=== PATIENT | male | born 1975 | race Caucasian/White ===

== ENCOUNTER 2018-01-08 23:18 | Inpatient (IN) | payer BC ==
[2018-01-08] MEDS ORDERED: NS 1,000 ML IV ONE (23:50)
--- NOTE | 2018-01-08 23:50 | EDPHY ---
H & P Stated Complaint: LIVER PAIN, X 2 DAYS/ABNORMAL LIVER PANEL Time Seen by Provider: 01/08/18 23:50 HPI/ROS: HPI CHIEF COMPLAINT: Abdominal pain, abnormal liver enzymes HISTORY OF PRESENT ILLNESS: This patient is a 42-year-old male, presents emergency room stating that he developed some right sided abdominal pain. States been hurting him since over the weekend on Saturday. Additionally reports that he went to his doctor's and they did liver enzymes and there very high is referred to the emergency room. Patient states that he had a liver injury when he took a Spanish herb back in September and was hospitalized in [place] for this. Patient does state that he drinks alcohol usually a bottle and a half wine per night. He has been recently binge drinking alcohol because he has been out of his anxiety medicine. He now presents emergency room complaining of right upper quadrant pain. Past Medical History: IBS, anxiety, alcoholism Past Surgical History: Patient states he has a stent in his abdomen around his pancreas additionally gallbladder is been removed. Social History: Daily alcohol use. No drugs. Family History: Noncontributory ROS REVIEW OF SYSTEMS: A comprehensive 10 point review of systems is otherwise negative aside from elements mentioned in the history of present illness. Exam Constitutional nontoxic appearing, triage nursing summary reviewed, vital signs reviewed, awake/alert. Eyes normal conjunctivae and sclera, EOMI, PERRLA. No jaundice or icteric eyes HENT normal inspection, atraumatic, moist mucus membranes, no epistaxis, neck supple/ no meningismus, no raccoon eyes. Respiratory clear to auscultation bilaterally, normal breath sounds, no respiratory distress, no wheezing. Cardiovascular rate normal, regular rhythm, no murmur, no edema, distal pulses normal. Gastrointestinal distended abdomen but not tender, no guarding or peritoneal signs, hepatomegaly on exam,, no rebound, no guarding, normal bowel sounds, no distension, no pulsatile mass. Genitourinary no CVA tenderness. Musculoskeletal no midline vertebral tenderness, full range of motion, no calf swelling, no tenderness of extremities, no meningismus, good pulses, neurovascularly intact. Skin ecchymosis bilateral arms Neurologic awake, alert and oriented x 3, AAOx3, moves all 4 extremities equally, motor intact, sensory intact, CN II-XII intact, normal cerebellar, normal vision, normal speech. Psychiatric normal mood/affect. Heme/Lymph/Immune no lymphadenopathy. Differential diagnosis includes but is not limited to and in no particular order : Liver disease from alcohol, acute liver injury, hepatitis Bowel obstruction , appendicitis, gallbladder disease, diverticulitis, colitis, enteritis, perforated viscus, gastritis, GERD, esophagitis, urinary tract infection, pyelonephritis, kidney stones Medical Decision Making: Plan for this patient IV establishment blood draw, check LFTs, check alcohol level, CT scan abdomen pelvis with IV contrast gentle IV fluids. Re-evaluation: 0130AM: CT ABD PELVIS with IV contrast this shows a pancreatic mass appears to be hemorrhagic 3.8 x 3.7 cm. There is some stranding around his pancreas. Enlarged liver on CT. Please see full details of the dictation for the Radiology port called to me by Dr. Matheus Smith. Updated the hospitalist service about this patient. Agrees To Admit. Source: Patient - Personal History Current Tetanus Diphtheria and Acellular Pertussis (TDAP): Yes - Medical/Surgical History Hx Asthma: No Hx Chronic Respiratory Disease: No Hx Diabetes: Yes Hx Cardiac Disease: No Hx Renal Disease: No Hx Cirrhosis: No Hx Alcoholism: Yes Hx HIV/AIDS: No Hx Splenectomy or Spleen Trauma: No Other PMH: DM, MYRON, PANCREATITIS, STENT FROM ENDOSCOPY, MULTIPLE BONE FX - Social History Smoking Status: Current some day smoker Constitutional: Initial Vital Signs Temperature (C) 36.6 C 01/08/18 23:28 Heart Rate 111 H 01/08/18 23:28 Respiratory Rate 16 01/08/18 23:28 Blood Pressure 130/96 H 01/08/18 23:28 O2 Sat (%) 93 01/08/18 23:28 O2 Delivery Mode Room Air Allergies/Adverse Reactions: Calcium Channel Blocking Agents-Dih Allergy (Verified 01/09/18 08:23) swelling tongue Home Medications: Medication Instructions Recorded DULoxetine [Cymbalta 60 MG (*)] 60 mg PO DAILY 01/08/18 Empagliflozin [Jardiance] 10 mg PO DAILY 01/08/18 Gabapentin [Neurontin 300 MG (*)] 900 mg PO TID 01/08/18 LORazepam [Ativan (*)] 0.25 mg PO TID 01/08/18 Phenobarb/Hyoscy/Atropine/Scop 16.2 mg PO Q6HRS 01/08/18 [Belladonna-Phenobarbital Tab] Sucralfate [Carafate 1 GM (*)] 1 gm PO ACHS 01/08/18 Trifluoperazine HCl [Stelazine 1MG 1 mg PO BID 01/08/18 (*)] metFORMIN HCL [Glucophage 1000 mg] 1,000 mg PO BIDMEAL 01/08/18 Famotidine [Pepcid 20 MG (*)] 40 mg PO DAILY PRN 01/09/18 Fluticasone Nasal [Flonase Nasal 1 sprays NASAL DAILY PRN 01/09/18 [place] (RX)] Pseudoephedrine HCl [Sudafed] 30 mg PO DAILY PRN 01/09/18 Medical Decision Making - Data Points Laboratory Results: Laboratory Results 01/08/18 00:05 01/08/18 00:05 Medications Given: Folic Acid (Folic Acid) 1 mg PO DAILY [facility] Stop: 07/09/18 08:59 Last Admin: 01/10/18 08:52 Dose: 1 mg Potassium Chloride/Sodium Chloride (Ns W/ 20 Kcl/L) 1,000 mls @ 75 mls/hr IV CONT [facility] Stop: 07/09/18 13:14 Last Admin: 01/10/18 13:56 Dose: 1,000 mls Insulin Human Lispro (Humalog Lispro) 0 unit SC ACHS [facility] PRN Reason: Protocol Stop: 07/08/18 07:29 Last Admin: 01/10/18 21:45 Dose: 4 units Iron/Minerals/Multivitamins (Cerovite Liquid) 15 ml PO DAILY [facility] Stop: 07/09/18 08:59 Last Admin: 01/10/18 08:55 Dose: 15 ml Lactulose (Cephulac) 20 gm PO BID [facility] Stop: 07/09/18 14:14 Last Admin: 01/10/18 21:02 Dose: 20 gm Lorazepam (Ativan Injection) 1 mg IVP Q4HRS PRN PRN Reason: Anxiety, Unable to Take PO Stop: 07/08/18 01:34 Last Admin: 01/09/18 17:49 Dose: 0.5 mg Lorazepam (Ativan) 0.5 mg PO BID [facility] Stop: 07/08/18 08:59 Last Admin: 01/10/18 21:02 Dose: 0.5 mg Lorazepam (Ativan Injection) 0 mg IVP Q1H PRN; Protocol PRN Reason: Alcohol Withdrawal w/IV access Stop: 07/09/18 05:15 Last Admin: 01/11/18 00:10 Dose: 2 mg Miscellaneous Medication (Phenobarb/Hyoscy/Atropine/Scop [Belladonna- Phenobarbital Tab]) 16.2 mg PO Q6HRS [facility] Stop: 07/08/18 17:59 Last Admin: 01/11/18 00:10 Dose: 16.2 mg Morphine Sulfate (Morphine) 1 - 2 mg IVP Q2HRS PRN PRN Reason: Pain, Severe Unable to Take PO Stop: 01/19/18 01:30 Last Admin: 01/10/18 23:31 Dose: 2 mg Ondansetron HCl (Zofran) 4 mg IVP Q4HRS PRN PRN Reason: Nausea/Vomiting, Can't Take PO Stop: 07/08/18 01:30 Last Admin: 01/10/18 15:05 Dose: 4 mg Prednisone (Prednisone) 30 mg PO DAILY [facility] Stop: 07/09/18 14:29 Last Admin: 01/10/18 15:06 Dose: 30 mg Promethazine HCl (Phenergan) 6.25 - 12.5 mg IVP Q6HRS PRN PRN Reason: Nausea/Vomiting, Can't Take PO Stop: 07/08/18 04:25 Last Admin: 01/09/18 17:51 Dose: 6.25 mg Sucralfate (Carafate Suspension) 1 gm PO ACHS [facility] Stop: 07/08/18 07:29 Last Admin: 01/10/18 21:02 Dose: 1 gm Thiamine HCl (Vitamin B-1) 100 mg PO DAILY [facility] Stop: 07/09/18 08:59 Last Admin: 01/10/18 08:52 Dose: 100 mg Discontinued Medications Duloxetine HCl (Cymbalta) 60 mg PO DAILY [facility] Stop: 07/09/18 08:59 Last Admin: 01/10/18 08:52 Dose: 60 mg Famotidine (Pepcid) 40 mg PO DAILY [facility] Stop: 07/08/18 08:59 Last Admin: 01/10/18 08:53 Dose: 40 mg Gabapentin (Neurontin) 900 mg PO TID [facility] Stop: 07/08/18 15:59 Last Admin: 01/10/18 07:56 Dose: 900 mg Sodium Chloride (Ns) 1,000 mls @ 0 mls/hr IV EDNOW ONE; Wide Open PRN Reason: Protocol Stop: 01/08/18 23:51 Last Admin: 01/09/18 00:07 Dose: 1,000 mls Sodium Chloride (Ns) 1,000 mls @ 100 mls/hr IV CONT [facility] Stop: 07/08/18 01:44 Last Admin: 01/09/18 09:28 Dose: 1,000 mls Dextrose/Sodium Chloride (D5w Ns) 1,000 mls @ 150 mls/hr IV CONT [facility] Stop: 07/08/18 15:14 Last Admin: 01/09/18 23:35 Dose: 1,000 mls Magnesium Sulfate (Magnesium Sulf 2 Gm (Premix)) 50 mls @ 50 mls/hr IV ONCE ONE Stop: 01/09/18 16:05 Last Admin: 01/09/18 15:34 Dose: 50 mls Magnesium Sulfate/Dextrose (Magnesium Sulf 1 Gm (Premix)) 100 mls @ 100 mls/hr IV ONCE ONE Stop: 01/10/18 09:11 Last Admin: 01/10/18 08:52 Dose: 100 mls Metoprolol Tartrate (Lopressor) 12.5 mg PO BID [facility] Stop: 07/09/18 08:59 Last Admin: 01/10/18 08:53 Dose: 12.5 mg Pantoprazole Sodium (Protonix) 40 mg IVP DAILY [facility] Stop: 07/08/18 15:29 Last Admin: 01/09/18 17:57 Dose: 40 mg Trifluoperazine HCl (Stelazine) 1 mg PO BID [facility] Stop: 07/08/18 08:59 Last Admin: 01/10/18 10:39 Dose: 1 mg Departure - Departure Disposition: [facility] Acute Clinical Impression: Elevated liver enzymes Alcohol intoxication Qualifiers: Complication of substance-induced condition: uncomplicated Qualified Code(s): F10.920 - Alcohol use, unspecified with intoxication, uncomplicated Condition: Fair
[2018-01-09 00:26] LABS: PLATELET COUNT 178 10^3/uL (150-400)
[2018-01-09 00:30] LABS: INR 0.87 (0.83-1.16)
[2018-01-09] MEDS ORDERED: IOPAMIDOL (ISOVUE-300) 100 ML BTL ONE (00:48)
[2018-01-09] MEDS: NS 1,000 ML IV SCH ×2 (02:13→09:28)
[2018-01-09] MEDS: LORazepam 2 MG/ML INJ IVP PRN ×3 (02:55→17:49)
[2018-01-09] MEDS ORDERED: OPIUM/BELLADONNA ALKALO SUPP PR PRN (03:59)
[2018-01-09] MEDS ORDERED: PROMETHAZINE HCL 25 MG/ML INJ IVP PRN (04:26)
[2018-01-09] MEDS ORDERED: D50W 25 GM/50 ML SYR IVP PRN (04:26)
--- NOTE | 2018-01-09 05:16 | GHP ---
[f rep st] HISTORY AND PHYSICAL DATE OF ADMISSION: 01/09/2018 SOURCE: Patient provides history, appears reliable historian. EMR was reviewed and case discussed with ED provider. PCP: None listed. CHIEF COMPLAINT: Right upper quadrant abdominal pain. HISTORY OF PRESENT ILLNESS: This is a pleasant 42-year-old gentleman with past medical history significant for bipolar depression, anxiety, alcohol dependence , recent history and hospitalization for acute hepatitis per report secondary to [place] herb. Irritable bowel syndrome, diabetes, who presents to the emergency department today with complaints of 4-day history of ongoing right upper quadrant epigastric abdominal pain and abdominal distention. Patient also reports he was seen by PCP, who advised him to go to the emergency department for abnormal LFTs. Patient's pain he states started in the right upper quadrant and has since been radiating to his right back. He reports the pain to be sharp and pressure-type sensation. Constant. Nothing seems to make it better or worse. The patient denies any associated worsening of pain with any oral intake. The patient additionally reports that he ran out of his Ativan for several days and has since been binge drinking on mostly wine products. The patient reports that he goes into benzo withdrawals fairly rapidly, even though he is on 0.5 mg p.o. b.i.d. The patient denies any history of nausea and vomiting. The patient reports he developed some nausea following administration of morphine here in the Emergency Department for his abdominal pain. He reports occasional diarrhea without any melena or hematochezia. REVIEW OF SYSTEMS: GENERAL: Patient denies any fevers or chills. SKIN: No rashes or sores. ENT: Patient reports some rhinorrhea since coming to [place]. No sore throat. EYES: Patient denies any acute changes in vision, ocular pain. CV: The patient denies any chest pain or palpitations. RESPIRATORY: No shortness of breath or cough. GI: Patient without any nausea prior to arrival in the emergency department and abdominal pain as noted per HPI. : No dysuria or hematuria. MUSCULOSKELETAL: Patient denies any joint pain or myalgias. NEURO: Patient denies any headache, numbness, tingling, or focal deficits. PSYCH: Patient with history of anxiety and bipolar depression. He denies any SI or HI. Remainder ROS negative except as noted above. ALLERGIES: Calcium channel blockers, patient develops tongue swelling. HOME MEDICATIONS: Duloxetine 60 mg p.o. q. daily, trifluoperazine 1 mg p.o. b.i.d., sucralfate 1 g p.o. 4 times a day, famotidine 40 mg p.o. daily, belladonna phenobarbital 1 mg q.6 scheduled, Jardiance 10 mg p.o. q. daily, 900 mg gabapentin t.i.d., metformin 2000 mg p.o. twice daily cc, lorazepam 0.5 mg p.o. b.i.d. p.r.n., which patient reports he normally takes scheduled, Ativan. PAST MEDICAL HISTORY: Significant for bipolar disorder, anxiety, alcohol dependence, history of acute hepatitis with hospitalization last several weeks, irritable bowel syndrome, history of pseudocyst, status post stent for drainage , diabetes type 2. PAST SURGICAL HISTORY: Cholecystectomy, ERCP with pancreatic stent placement. FAMILY HISTORY: Significant for irritable bowel syndrome. Father with kidney cancer. SOCIAL HISTORY: Patient drinks approximately 1.5 bottles of wine or more per day. He denies any illicit drug use. He denies any tobacco product use. COR STATUS: DNR, DNI. PHYSICAL EXAM: VITAL SIGNS: Blood pressure 130/96, heart rate 111, respiratory rate 16, O2 saturation 93% on room air, temperature 36.6. CURRENT VITALS AVAILABLE: Blood pressure 147/96, heart rate 88, respiratory rate 16, O2 saturation 92% on room air. GENERAL: No acute distress. Patient is lying quietly in bed, awake. HEAD: Normocephalic, atraumatic. EYES: Extraocular muscles are grossly intact. Pupils equal, round, with decreased reactivity to light bilaterally, but symmetric. No scleral icterus or conjunctival injection. Patient does have a little bit of right lower conjunctival hemorrhage. ENT: Mucous membranes appear slightly dry. No oropharyngeal erythema or exudates. Dentition in fair condition. No nasal discharge. NECK: Supple. Trachea midline. CV: Regular rate and rhythm. No murmurs, rubs, or gallops appreciated. RESPIRATORY: Unlabored breathing. Lungs are clear to auscultation bilaterally. Patient with poor inspiratory effort secondary to abdominal pain. ABDOMEN: Slightly distended. Patient with tenderness to palpation right upper quadrant and epigastric region. No rebound or guarding, but patient does withdraw from exam during evaluation of the right upper quadrant. Patient with positive bowel sounds, otherwise soft. : No suprapubic tenderness to palpation. No catheter in place. EXTREMITIES: No cyanosis, clubbing, or edema. 2+ pedal pulses present bilaterally and symmetric. NEURO: Grossly nonfocal no facial drooping. Moves all extremities. Sits up independently. Strength grossly intact. PSYCH: Patient is slightly anxious, but he is otherwise cooperative, pleasant. Affect slightly flat. LABORATORY STUDIES: WBC is 8.77, H and H is 14.1, 40.7, MCV 91.3, platelet count is 178. No bands. PT is 12.0, INR 0.87, PTT is 28.6. Lactic acid 3.8. Sodium is 134, potassium 4.3, chloride is 93, CO2 is 20, anion gap of 21, BUN 13 , creatinine 0.8, GFR greater than 60, glucose 129, calcium is 9.5, total bili is 1.8, ALT is 1040, AST is 1870, alkaline phosphatase is 767, total protein 7.7 , albumin 4.5, lipase is 217. UA specific gravity 1.030 with a pH of 5.0, 1+ protein, trace ketones, 1+ blood, 4.0 urobilinogen, RBCs 5-10, WBC is 3 to 5, 3 + glucose, otherwise negative. Alcohol level 127. Hepatitis panel is pending. CT abdomen and pelvis: Preliminary radiology report is available. A 4 cm mass pancreatic head with biliary and pancreatic ductal dilation, 11 mm higher attenuation inferiorly, possible hemorrhagic pancreatitis, pseudocyst or malignancy, sequelae of prior pancreatitis. ASSESSMENT AND PLAN: A 42-year-old gentleman with a history of alcohol dependence and recent hospital stay for acute hepatitis, who presents to the emergency department with several-day history of right upper quadrant abdominal pain. 1. Acute hepatitis, likely related to patient's recent binge drinking. The patient reports that his previous hospital stay was related to an herbal supplement. However, he does note he was drinking at that time as well. Hepatitis panel is pending. We will monitor LFTs. 2. Acute hemorrhagic pancreatitis on chronic pancreatitis. Patient does have a history of pseudocyst in addition, which imaging does show. The patient will be n.p.o. except for medications. After discussion with the patient, he is quite concerned regarding his regularly scheduled antipsychotics and pain medications to control his irritable bowel syndrome symptoms. We will monitor his lipase, amylase, and otherwise make patient n.p.o. Gastroenterology consultation in the morning as per day hospitalist as noted above. 3. Pancreatic mass. The patient has a known history of a pseudocyst, which he reports was previously drained with use of a stent. The patient may require additional imaging in the morning, but will consult Gastroenterology for further assistance with recommendations. 4. Lactic acidosis, metabolic in nature related to patient's metformin, likely in some component of dehydration is possible in addition. We will continue with intravenous fluids. Hold his metformin. 5. Hyponatremia is mildly decreased, likely related to some component of dehydration. Intravenous fluids and repeat BMP in the morning. 6. Diabetes type 2, controlled. Holding patient's oral medications including his metformin related secondary to his lactic acidosis, as well as Jardiance. The patient will be placed on low insulin sliding scale at this time. He will be n.p.o. 7. Hyperbilirubinemia mildly increased. Continue with intravenous fluids. Repeat LFTs in the morning. 8. Alcohol dependence. Immediate cessation was highly encouraged. The patient reports that he is attempting to cut back. I did explain to the patient several times during the interview, explaining that binge drinking can lead to acute liver failure. 9. Irritable bowel syndrome. Continue patient's belladonna and sucralfate. 10. Chronic pain. Hold off on patient's gabapentin and Cymbalta at this time. The patient has morphine available p.r.n. 11. Gastroesophageal reflux disease. Continue famotidine. 12. Fluid, electrolyte, nutrition. Intravenous fluid overnight while n.p.o. Electrolyte monitoring and replacement if needed. 13. Prophylaxis. Sequential compression devices. Holding anticoagulation secondary to potential for hemorrhagic pancreatitis. 14. Cor status. Do not resuscitate, do not intubate. Discussed with the patient, reviewing quite carefully that patient is clear he does not want any cardiopulmonary resuscitation. He does not want to be intubated in case of an emergency situation. 15. Disposition. The patient has been admitted to inpatient status. Anticipate greater than 2 midnight stay given patient's level of transaminitis and pancreatitis with possible hemorrhagic versus mass or pseudocyst. /[id number]/MODL MTDD
[2018-01-09 05:21] LABS: HEPATITIS B SURFACE ANTIGEN NEGATIVE (NEGATIVE)
[2018-01-09 05:27] LABS: HEPATITIS A ANTIBODY IGM (BCH) NEGATIVE (NEGATIVE); HEPATITIS B CORE AB IGM NEGATIVE (NEGATIVE)
[2018-01-09 05:38] LABS: HEPATITIS C ANTIBODY TOTAL NEGATIVE (NEGATIVE)
[2018-01-09 06:34] LABS: PLATELET COUNT 156 10^3/uL (150-400)
[2018-01-09 06:48] LABS: INR 0.89 (0.83-1.16); PROTIME(PATIENT) 12.3 SEC (12.0-15.0)
[2018-01-09] MEDS: INSULIN LISPRO 100 UNIT/ML SC SCH ×4 (08:17→21:26)
[2018-01-09] MEDS: LORazepam 0.5 MG TAB PO SCH ×2 (09:18→21:26)
[2018-01-09] MEDS: ONDANSETRON 4 MG/2 ML VIAL IVP PRN ×2 (09:27→14:12)
[2018-01-09] MEDS: TRIFLUOPERAZINE HCL 1 MG TAB PO SCH ×2 (09:30→22:10)
[2018-01-09] MEDS: FAMOTIDINE 20 MG TAB PO SCH (09:30)
[2018-01-09] MEDS: SUCRALFATE 1 GM/10 ML UDCUP PO SCH ×4 (11:48→21:26)
--- NOTE | 2018-01-09 13:59 | PDMN ---
Medical Necessity Medical necessity: Pt meets IP criteria per MD & MCG M-250 Pancreatitis w/ possible hemorrhagic mass or pseudocyst, lactic acidosis, ongoing RUQ pain, abdominal distention & abnormal LFTs; requiring NPO status, IVFs, IV pain meds/ antiemetics & GI consult
[2018-01-09] MEDS ORDERED: MAGNESIUM SULF 2 GM/WATER 50 ML IV ONE (15:06)
[2018-01-09] MEDS ORDERED: PROTOCOL POTASSIUM 1 DOSE MISC PRN (15:07)
[2018-01-09] MEDS ORDERED: PROTOCOL MAGNESIUM 1 DOSE IV PRN (15:07)
--- NOTE | 2018-01-09 15:19 | HOSPPROG ---
Hospitalist Progress Note Assessment/Plan: This is a 42 yo male who recently moved to [place] from [place] who has a hx of chronic ETOH use, pancreatitis, and pseudocyst. He has not been seen at [facility] until this admission. He presented to his new PCP due to epigastric and RUQ pain and because he had recently had elevated liver enzymes. His PCP obtained labs and called him yesterday requesting him to present to the ED for evaluation. In the E.D. he was found to have transaminitis. A CT of the abd/ pelvis showed pancreatic mass with biliary and pancreatic duct dilatation. He does not report constitutional symptoms. Lipase was not elevated. There was e/o of Lactic Acidosis. Low Na #Mid Epigastric Pain #possible pancreatic mass in a patient with chronic pancreatitis and pseudocyst #Jaundice #Chronic ETOH with no e/o of acute WD #Lactic Acidosis, resolving #Hyponatremia, appears Euvolemic #DM #chronic Pain syndrome #IBS #GERD #Hypomagnesemia Plan: -GI consult -Cont NPO -IVF, add dextrose. Increase rate -PPI -check David and UOsm -Pain mgt -Benzo's PRN -Replace Magnesium -Home meds as appropriate -SCD's for now DNR Objective: Vital Signs Temp Pulse Resp BP Pulse Ox 36.6 C 77 16 159/104 H 92 01/09/18 12:23 01/09/18 12:23 01/09/18 11:59 01/09/18 12:23 01/09/18 12:23 Laboratory Results 01/09/18 06:00 01/09/18 06:08 01/08/18 01/09/18 01/10/18 05:59 05:59 05:59 Intake Total 1500 Balance 1500 PT 12.3 SEC (12.0-15.0) 01/09/18 06:08 INR 0.89 (0.83-1.16) 01/09/18 06:08 ICD10 Worksheet Patient Problems: Problems Problem Status Onset Alcohol intoxication Acute Elevated liver enzymes Acute
[2018-01-09] MEDS ORDERED: PANTOPRAZOLE SODIUM 40 MG VIAL IVP SCH (15:30)
[2018-01-09] MEDS: D5W NS 1,000 ML IV SCH ×2 (15:33→23:35)
[2018-01-09] MEDS: GABAPENTIN 300 MG CAP PO SCH ×2 (15:37→21:26)
[2018-01-09] MEDS: PHENOBARB PO SCH (18:22)
[2018-01-09] MEDS: SCOP PO SCH (18:22)
[2018-01-09] MEDS: HYOSCY PO SCH (18:22)
[2018-01-09] MEDS: ATROPINE PO SCH (18:22)
--- NOTE | 2018-01-09 22:37 | GCON ---
[f rep st] CONSULTATION GI INPATIENT CONSULTATION. DATE OF CONSULTATION: 01/09/2018 I was kindly requested to see the patient by Dr. Rowley in consultation for a chief complaint of abnormal liver tests. He is a 42-year-old male who is an alcoholic. Recently, he saw his primary care provider, and was found to have abnormal liver tests, and advised to go to the emergency department. Besides the above, he has had some right upper quadrant epigastric discomfort. He continues to drink alcohol, and on admission had an alcohol level of 17. He has a past history of alcoholic pancreatitis, and states he was hospitalized at [facility] in September. There, he underwent cyst gastrostomy tube placement for drainage of a pseudocyst. He was told to have this removed, but he never did. Then, he did have elevated liver tests, which he was told were due to a Malay herb. He states he is no longer using any herbs, vitamins or supplements. He states none of his medications are new, other than recently Baclofen and trazodone. Now, he is doing reasonably well. He does complain of some mild epigastric pain , bloating only. PAST MEDICAL HISTORY: 1. As above. 2. Bipolar disorder. 3. Anxiety. 4. Apparent irritable bowel syndrome. 5. Apparent diabetes. 6. Otherwise, noncontributory. OUTPATIENT MEDICATIONS: Include duloxetine, trifluoperazine, sucralfate 1 gram 4 times a day, Pepcid 40 mg daily, belladonna, Jardiance, Neurontin, metformin, Ativan 0.5 mg twice a day. Inpatient medications include IV fluids, Cymbalta, Pepcid 40 mg daily, Neurontin. ALLERGIES: Include calcium channel blockers. SOCIAL HISTORY: As above. FAMILY HISTORY: Negative for similar abnormal liver tests. REVIEW OF SYSTEMS: Positive pertinent review of systems as per my HPI. Otherwise, complete review of systems is negative. PHYSICAL EXAM: CONSTITUTIONAL: Reveals a sleepy, nontoxic-appearing gentleman. SKIN: Warm, dry. EYES: Pupils equal, round, reactive to light and accommodation. EARS, NOSE, MOUTH, AND THROAT: Oropharynx without masses, moist mucosa. CARDIOVASCULAR: Normal S2, normal PMI. RESPIRATORY: Lungs clear to auscultation and percussion anteriorly. GASTROINTESTINAL: Abdomen soft, with mild epigastric tenderness only. NEUROLOGIC: Grossly nonfocal, cranial nerves grossly intact. PSYCHIATRIC: Orientation, insight appropriate. MUSCULOSKELETAL: Strength grossly normal throughout, normal station. LABORATORIES: Include a sodium 138. Glucose 106. Hematocrit 38.8%. Platelet count 156,000. Normal coags. AST 2698 with an ALT of 1325. Alkaline phosphatase 746. Total bilirubin 2.2. Normal lipase. Urinalysis is negative. Hepatitis serology is negative. CT scan shows chronic pancreatitis with calcifications. There is a pseudocyst at the junction of the pancreatic head and body, approximately 4 cm, with some probable areas of blood within it. There is some secondary biliary and pancreatic duct dilation from the pseudocyst, the common bile duct being approximately 12 mm. A previous cyst gastrostomy tube can be seen, with the pancreatic end now no longer in a fluid collection. ASSESSMENT: 1. Abnormal liver tests. Some cholestasis, but mostly in a brisk transaminitis. A continued drug-induced side effect is possible, including surreptitious use of an herb or vitamin. Tylenol toxicity could also produce this. Ischemic hepatitis can induce this, but no history to correspond. Obstruction from his pseudocyst as a cause is possible, but somewhat less likely , as usually do not see such a brisk transaminitis. Alcohol is possible, although the values are quite high. 2. Pseudocyst found on imaging. Relatively small, and for the most part, not giving him symptoms. 3. Alcoholism. 4. Chronic alcoholic pancreatitis. PLAN: 1. We will follow his liver tests closely. Hopefully, will improve with time. Presently, he does have good synthetic function. 2. Stat Tylenol level. 3. We will obtain all of his recent records from his hospitalization at [facility]. 4. At this juncture, no further management needed for his pseudocyst, other than a future interval CT scan to make sure it continues to get smaller on its own. 5. He will require removal of his cyst gastrostomy tube, prior to discharge, once he is more stable from a liver standpoint. 6. No outpatient alcohol. 7. Alki-vites. Thank you for allowing me to help in the management of this patient. Copy requested to: Primary care provider /[id number]/MODL MTDD
[2018-01-10] MEDS: HYOSCY PO SCH ×4 (00:07→18:41)
[2018-01-10] MEDS: ATROPINE PO SCH ×4 (00:07→18:41)
[2018-01-10] MEDS: PHENOBARB PO SCH ×4 (00:07→18:41)
[2018-01-10] MEDS: SCOP PO SCH ×4 (00:07→18:41)
[2018-01-10] MEDS ORDERED: FLUMAZENIL 0.5 MG/5 ML MDV IVP PRN (05:16)
[2018-01-10 05:30] LABS: PLATELET COUNT 148 10^3/uL (150-400)
[2018-01-10] MEDS: LORazepam 2 MG/ML INJ IVP PRN ×6 (05:31→20:02)
[2018-01-10] MEDS: ONDANSETRON 4 MG/2 ML VIAL IVP PRN ×2 (06:18→15:05)
[2018-01-10] MEDS: INSULIN LISPRO 100 UNIT/ML SC SCH ×4 (07:55→21:45)
[2018-01-10] MEDS: SUCRALFATE 1 GM/10 ML UDCUP PO SCH ×4 (07:56→21:02)
[2018-01-10] MEDS: GABAPENTIN 300 MG CAP PO SCH (07:56)
[2018-01-10] MEDS ORDERED: MAGNESIUM SULF 1 GM/DEXTROSE 100 ML IV ONE (08:12)
[2018-01-10] MEDS: THIAMINE HCL 100 MG TAB PO SCH (08:52)
[2018-01-10] MEDS: FOLIC ACID 1 MG TAB PO SCH (08:52)
[2018-01-10] MEDS: FAMOTIDINE 20 MG TAB PO SCH (08:53)
[2018-01-10] MEDS: LORazepam 0.5 MG TAB PO SCH ×2 (08:54→21:02)
[2018-01-10] MEDS: MULTIVIT/MINERAL/FERR GLUC 15 ML UDL PO SCH (08:55)
[2018-01-10] MEDS ORDERED: METOPROLOL TARTRATE 25 MG TAB PO SCH (09:00)
[2018-01-10] MEDS ORDERED: DULoxetine 60 MG CAP PO SCH (09:00)
[2018-01-10] MEDS: TRIFLUOPERAZINE HCL 1 MG TAB PO SCH (10:39)
--- NOTE | 2018-01-10 13:10 | HOSPPROG ---
Hospitalist Progress Note Assessment/Plan: This is a 42 yo male who recently moved to [place] from [place] who has a hx of chronic ETOH use, pancreatitis, and pseudocyst. He has not been seen at [facility] until this admission. He presented to his new PCP due to epigastric and RUQ pain and because he had recently had elevated liver enzymes. His PCP obtained labs and called him yesterday requesting him to present to the ED for evaluation. In the E.D. he was found to have transaminitis. A CT of the abd/ pelvis showed pancreatic mass (likely pseudocyst) with biliary and pancreatic duct dilatation. He does not report constitutional symptoms. Lipase was not elevated. There was e/o of Lactic Acidosis. Low Na was present #Transaminitis -Worse today -INR is ok -Etiology is unclear, GI is following #Mid Epigastric Pain -normal Lipase -worse today -he is requesting a Clear diet #pseudocyst -will need to have cyst gastrostomy tube removed once doing better -Will need serial scans #Chronic ETOH with no e/o of acute WD #Lactic Acidosis, resolved #Hyponatremia, appears Euvolemic -?SiADh #DM #chronic Pain syndrome #IBS #GERD #Hypomagnesemia #HTN: on Lopressor Plan: -Change Diet to Clear -cont Fluids given low PO -Await further GI reccs -Pain mgt -Benzo's PRN -Replace Magnesium -Home meds as appropriate -SCD's for now DNR Subjective: no cp or sob. Does have mid epigastric pain. Has not eaten much for lunch. Liver enzymes are worse. Objective: Vital Signs Temp Pulse Resp BP Pulse Ox 37.1 C 79 15 160/96 H 96 01/10/18 11:00 01/10/18 11:00 01/10/18 11:00 01/10/18 11:00 01/10/18 11:00 Laboratory Results 01/10/18 05:14 01/10/18 05:14 01/09/18 01/10/18 01/11/18 05:59 05:59 05:59 Intake Total 2329 1200 Output Total 700 1650 Balance 1629 -450 PT 12.3 SEC (12.0-15.0) 01/09/18 06:08 INR 0.89 (0.83-1.16) 01/09/18 06:08 ICD10 Worksheet Patient Problems: Problems Problem Status Onset Alcohol intoxication Acute Elevated liver enzymes Acute
[2018-01-10] MEDS: NS W/ 20 KCl/L 1,000 ML IV SCH (13:56)
--- NOTE | 2018-01-10 14:25 | SOAPPROG ---
SOAP Progress Note Assessment/Plan: Assessment/Plan: 1. Abnormal LFTs. Continue to worsen. Most likely due to alcoholic hepatitis , with a very brisk transaminitis response. However, poor historian, and drug- induced toxicity to the liver from one of his outpt meds could be possible, or contributing (unclear how long he has been on these). Doubt due to bile duct obstruction from his pseudocyst (cbd only moderately dilated). 2. Chronic alcoholic pancreatitis, with pseudocyst. - recheck LFTs in AM - prednisone 30 mg daily; although he doesn't meet criteria by Maddrey score, he has such a brisk transaminitis (as well as some probable underlying hepatic encephalopathy), that I suspect an anti-inflammatory should help - stop all outpt meds for now - lactulose bid - at some point, when stable from a liver standpoint, will need cyst gastrostomy removed via EGD 01/10/18 14:18 Subjective: cc: abnormal LFTs Somewhat lethargic (more than I'd expect from just sedatives). Substernal discomfort, "like my pancreatitis pain." No rigors, chills, sweats. Objective: Vital Signs Temp Pulse Resp BP Pulse Ox 37.1 C 79 15 160/96 H 96 01/10/18 11:00 01/10/18 11:00 01/10/18 11:00 01/10/18 11:00 01/10/18 11:00 Laboratory Results 01/10/18 05:14 01/10/18 05:14 01/09/18 01/10/18 01/11/18 05:59 05:59 05:59 Intake Total 2329 1200 Output Total 700 1650 Balance 1629 -450 PT 12.3 SEC (12.0-15.0) 01/09/18 06:08 INR 0.89 (0.83-1.16) 01/09/18 06:08 Tylenol level < 10 LFTs worse Physical Exam - Physical Exam General Appearance: WD/WN, no apparent distress, No alert (lethargic) EENT: PERRL/EOMI, normal ENT inspection, pharynx normal, TMs normal, scleral icterus (R), scleral icterus (L) Neck: non-tender, full range of motion, supple, normal inspection Respiratory: chest non-tender, lungs clear, normal breath sounds Cardiac/Chest: normal peripheral pulses, regular rate, rhythm Peripheral Pulses: 2+: carotid (R), carotid (L), femoral (R), femoral (L), dorsalis-pedis (R), dorsalis-pedis (L) Abdomen: normal bowel sounds, soft, No non-tender (mild epigastric tenderness) Male Genitalia: deferred Rectal: deferred Back: Normal inspection Skin: warm/dry, jaundice Lymphatic: no adenopathy Extremities: normal range of motion, non-tender, normal inspection, normal capillary refill Neuro/Psych: no motor/sensory deficits, alert, normal mood/affect, oriented x 3 ICD10 Worksheet Patient Problems: Problems Problem Status Onset Alcohol intoxication Acute Elevated liver enzymes Acute
--- NOTE | 2018-01-10 14:54 | ASMTCMCOM ---
CM Note CM Note Notes: Pt was admitted with elevated liver enzymes, abdominal pain, pancreatitis with possible mass. He was hospitalized 10/13 in [place] for pancreatitis and drainage of a pseudocyst. At that time he had elevated liver tests which they attributed to his taking a Ethiopian herb. He has a hx of etoh dependence (a bottle and a half+ wine/night), Bipolar d/o, depression, anxiety, IBS, DM2, pancreatitis and pseudocyst. He is living with his girlfriend here in [place] but lived most recently in [place]. 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 He reported 6 months sobriety until relatively recently and felt his relapse was related to issues in his girlfriend's life he was helping her with. Pt has not had any treatment for his drinking. It was not an appropriate time to discuss etoh treatment options but he did express fear and concern regarding his current health status and said he didn't understand how "this all happened so fast." He may be open to etoh resources when he is feeling better. Pt is currently on [facility] protocol. CM will continue to follow for any d/c needs. Date Signed: 01/10/2018 02:53 PM Electronically Signed By:SAMARA [place]
[2018-01-10] MEDS: predniSONE 20 MG TAB PO SCH (15:06)
[2018-01-10] MEDS: LACTULOSE 20 GM/30 ML UDCUP PO SCH ×2 (15:07→21:02)
[2018-01-11] MEDS: LORazepam 2 MG/ML INJ IVP PRN ×11 (00:10→23:47)
[2018-01-11] MEDS: PHENOBARB PO SCH ×5 (00:10→22:47)
[2018-01-11] MEDS: HYOSCY PO SCH ×5 (00:10→22:47)
[2018-01-11] MEDS: SCOP PO SCH ×5 (00:10→22:47)
[2018-01-11] MEDS: ATROPINE PO SCH ×5 (00:10→22:47)
[2018-01-11] MEDS: hydrALAZINE 20 MG/ML VIAL IVP PRN ×2 (04:21→06:36)
[2018-01-11] MEDS: ONDANSETRON 4 MG/2 ML VIAL IVP PRN ×2 (04:30→09:51)
[2018-01-11 06:12] LABS: INR 1.02 (0.83-1.16); PROTIME(PATIENT) 13.6 SEC (12.0-15.0)
[2018-01-11] MEDS ORDERED: chlordiazePOXIDE 25 MG CAP PO SCH (06:45)
[2018-01-11] MEDS: chlordiazePOXIDE 25 MG CAP PO SCH ×3 (07:13→22:46)
--- NOTE | 2018-01-11 07:36 | HOSPPROG ---
Hospitalist Progress Note Assessment/Plan: This is a 42 yo male who recently moved to [place] from [place] who has a hx of chronic ETOH use, pancreatitis, and pseudocyst. He has not been seen at [facility] until this admission. He presented to his new PCP due to epigastric and RUQ pain and because he had recently had elevated liver enzymes. His PCP obtained labs and called him yesterday requesting him to present to the ED for evaluation. In the E.D. he was found to have transaminitis. A CT of the abd/ pelvis showed pancreatic mass (likely pseudocyst) with biliary and pancreatic duct dilatation. He does not report constitutional symptoms. Lipase was not elevated. There was e/o of Lactic Acidosis. Low Na was present #Transaminitis -likely ETOH hepatitis -improving -INR is ok -cont with Prednisone #Encephalopathy: -multifactorial from liver disease and ETOH WD -cont Lactulose -cont CIWA, Benzos #ETOH WD - acute -Has gone into WD currently -Ativan given, Librium started -cont CIWA #Mid Epigastric Pain -normal Lipase -improving -he is requesting a Clear diet #pseudocyst -will need to have cyst gastrostomy tube removed once doing better -Will need serial scans #Lactic Acidosis, resolved #Hyponatremia, appears Euvolemic -?SiADh #DM #chronic Pain syndrome #IBS #GERD #Hypomagnesemia #HTN: on Lopressor SCD's DNR Subjective: Has gone into WD. no cp or sob Objective: Vital Signs Temp Pulse Resp BP Pulse Ox 37.1 C 118 H 16 139/92 H 100 01/11/18 07:00 01/11/18 07:00 01/11/18 07:00 01/11/18 07:00 01/11/18 07:00 Laboratory Results 01/10/18 05:14 01/11/18 05:50 01/10/18 01/11/18 01/12/18 05:59 05:59 05:59 Intake Total 2329 2150 Output Total 700 4100 Balance 1629 -1950 PT 13.6 SEC (12.0-15.0) 01/11/18 05:50 INR 1.02 (0.83-1.16) 01/11/18 05:50 - Physical Exam Constitutional: no apparent distress Eyes: PERRL Ears, Nose, Mouth, Throat: moist mucous membranes, hearing normal Cardiovascular: regular rate and rhythym, No edema Respiratory: no respiratory distress Gastrointestinal: normoactive bowel sounds, tenderness (mid epigastric) Skin: warm Musculoskeletal: full muscle strength Neurologic: AAOx3 Psychiatric: interacting appropriately, anxious Lymph, Heme, Immunologic: No petechiae ICD10 Worksheet Patient Problems: Problems Problem Status Onset Alcohol intoxication Acute Elevated liver enzymes Acute
[2018-01-11] MEDS ORDERED: MAGNESIUM SULF 1 GM/DEXTROSE 100 ML IV ONE (07:49)
[2018-01-11] MEDS: INSULIN LISPRO 100 UNIT/ML SC SCH ×4 (08:01→20:36)
[2018-01-11] MEDS: LACTULOSE 20 GM/30 ML UDCUP PO SCH ×2 (08:01→20:38)
[2018-01-11] MEDS: MULTIVIT/MINERAL/FERR GLUC 15 ML UDL PO SCH (08:01)
[2018-01-11] MEDS: SUCRALFATE 1 GM/10 ML UDCUP PO SCH ×4 (08:01→20:38)
[2018-01-11] MEDS: LORazepam 0.5 MG TAB PO SCH (08:02)
[2018-01-11] MEDS: THIAMINE HCL 100 MG TAB PO SCH (08:02)
[2018-01-11] MEDS: FOLIC ACID 1 MG TAB PO SCH (08:02)
[2018-01-11] MEDS: predniSONE 20 MG TAB PO SCH (08:02)
[2018-01-11] MEDS ORDERED: FAMOTIDINE 20 MG TAB PO SCH (09:00)
[2018-01-11] MEDS ORDERED: LORazepam 2 MG/ML INJ ONE ×2 (16:38→19:16)
[2018-01-11] MEDS ORDERED: DEXMEDETOMIDINE HCL 400 MCG in NS 100 ML IV SCH (17:00)
--- NOTE | 2018-01-11 17:11 | PDANEPAE ---
ANE History of Present Illness pancreatitis s/f ERCP ANE Past Medical History - Cardiovascular History Hx Hypertension: Yes - Pulmonary History Hx Oxygen in Use at Home: No Hx Sleep Apnea: No Sleep Apnea Screening Result - Last Documented: Negative - Endocrine History Hx Diabetes: Yes Endocrine History Comment: AODM - Liver History Hx Hepatic Disorders: Yes Hepatic History Comment: pancreatitis, ETOH hepatitis - Other Health History Other Health History: Bipolar D/O - Chronic Pain History Chronic Pain: Yes ANE Review of Systems Review of Systems: - Exercise capacity Exercise capacity: >=4 METS ANE Patient History - Allergies Allergies/Adverse Reactions: Calcium Channel Blocking Agents-Dih Allergy (Verified 01/09/18 08:23) swelling tongue - Home Medications Home medications: home medication list seen and reviewed Home Medications: DULoxetine [Cymbalta 60 MG (*)] 60 mg PO DAILY 01/08/18 [Last Taken 01/08/18] Empagliflozin [Jardiance] 10 mg PO DAILY 01/08/18 [Last Taken 01/08/18] Gabapentin [Neurontin 300 MG (*)] 900 mg PO TID 01/08/18 [Last Taken 01/08/18 14 :00] LORazepam [Ativan (*)] 0.25 mg PO TID 01/08/18 [Last Taken 01/08/18 14:00] Phenobarb/Hyoscy/Atropine/Scop [Belladonna-Phenobarbital Tab] 16.2 mg PO Q6HRS 01/08/18 [Last Taken 01/08/18 14:00] Sucralfate [Carafate 1 GM (*)] 1 gm PO ACHS 01/08/18 [Last Taken 01/08/18 18:00] Trifluoperazine HCl [Stelazine 1MG (*)] 1 mg PO BID 01/08/18 [Last Taken 09:00] metFORMIN HCL [Glucophage 1000 mg] 1,000 mg PO BIDMEAL 01/08/18 [Last Taken 18:00] Famotidine [Pepcid 20 MG (*)] 40 mg PO DAILY PRN 01/09/18 [Last Taken 01/08/18] Fluticasone Nasal [Flonase Nasal [place] (RX)] 1 sprays NASAL DAILY PRN 01/09/18 [ Last Taken Unknown] Pseudoephedrine HCl [Sudafed] 30 mg PO DAILY PRN 01/09/18 [Last Taken Unknown] - NPO status NPO Status: no food or drink >8 hours NPO Since - Liquids (Date): 01/11/18 NPO Since - Liquids (Time): 11:30 (noted) NPO Since - Solids (Date): 01/11/18 NPO Since - Solids (Time): 00:00 - Anes Hx Anes Hx: no prior problems - Smoking Hx Smoking Status: Current some day smoker - Alcohol Use Alcohol Use: Heavy (currently in ETOH withdrawl) ANE Labs/Vital Signs - Labs Result Diagrams: 01/10/18 05:14 01/11/18 05:50 - Vital Signs Blood Pressure: 137/92 Heart Rate: 111 Respiratory Rate: 13 O2 Sat (%): 91 Height: 177.8 cm Weight: 80.467 kg ANE Physical Exam - Airway Mallampati Score: Class 2 Mouth exam: poor dentition - Pulmonary Pulmonary: no respiratory distress - Cardiovascular Cardiovascular: regular rate and rhythym - ASA Status ASA Status: III ANE Anesthesia Plan Anesthesia Plan: general endotracheal anesthesia
[2018-01-11] MEDS ORDERED: PROPOFOL/EMULSION 500 MG/50 ML BOTTLE IV ONE (17:16)
[2018-01-11] MEDS ORDERED: fentaNYL 250 MCG/5 ML INJ ONE (17:16)
[2018-01-11] MEDS ORDERED: REMIFENTANIL HCL 1 MG VIAL ONE (17:17)
[2018-01-11] MEDS ORDERED: DEXAMETHASONE 4 MG/ML VIAL ONE (17:18)
[2018-01-11] MEDS ORDERED: ONDANSETRON 4 MG/2 ML VIAL ONE ×2 (17:18→19:14)
[2018-01-11] MEDS ORDERED: RANITIDINE 50 MG/2 ML VIAL ONE (17:21)
[2018-01-11] MEDS ORDERED: INDOMETHACIN 50 MG SUPP PR ONE (17:29)
[2018-01-11] MEDS ORDERED: MEPERIDINE 25 MG/0.5 ML AMP IVP PRN (18:45)
[2018-01-11] MEDS ORDERED: LABETALOL HCL 5 MG/ML 20 ML MDV IVP PRN (18:45)
[2018-01-11] MEDS ORDERED: oxyCODONE IR 5 MG TAB PO PRN (18:45)
[2018-01-11] MEDS ORDERED: PROMETHAZINE HCL 25 MG/ML INJ IVP PRN (18:45)
[2018-01-11] MEDS ORDERED: NALOXONE HCL 0.4 MG/ML INJ IVP PRN (18:45)
[2018-01-11] MEDS ORDERED: fentaNYL 100 MCG/2 ML INJ IVP PRN (18:45)
[2018-01-11] MEDS ORDERED: DEXAMETHASONE 4 MG/ML VIAL IVP PRN (18:45)
[2018-01-11] MEDS ORDERED: HYDROCODONE/APAP 5/325 TAB PO PRN (18:45)
[2018-01-11] MEDS ORDERED: ALBUTEROL 3 ML DEYVIAL IH PRN (18:45)
[2018-01-11] MEDS ORDERED: ACETAMINOPHEN 500 MG TAB PO PRN (18:45)
[2018-01-11] MEDS ORDERED: METOCLOPRAMIDE 10 MG/2 ML VIAL IVP PRN (18:45)
[2018-01-11] MEDS ORDERED: LR 500 ML IV PRN (18:45)
[2018-01-11] MEDS ORDERED: ONDANSETRON 4 MG/2 ML VIAL IVP PRN (18:45)
[2018-01-11] MEDS ORDERED: PHENYLEPHRINE HCL 100 MCG/ML SYR IVP PRN (18:45)
--- NOTE | 2018-01-11 18:58 | POSTANESTH ---
Post Anesthetic Evaluation Cardiovascular Status: Normal, Stable Respiratory Status: Normal, Stable Level of Consciousness/Mental Status: Can Participate in Eval, Mildly Sleepy, Arousable (slightly aggitated, on ETOH withdrawl protocol) Pain Control: Adequate, Prn Tx Ordered Nausea/Vomiting Control: Adequate, Prn Tx Ordered Complications Possibly Related to Anesthesia: None Noted
[2018-01-11] MEDS: LORazepam 1 MG TAB PO SCH ×2 (19:43→22:47)
[2018-01-11] MEDS: DEXMEDETOMIDINE IN 0.9 % NACL 100 ML IV SCH (20:15)
[2018-01-11] MEDS: NS W/ 20 KCl/L 1,000 ML IV SCH (20:36)
--- NOTE | 2018-01-11 21:51 | GIREPORT ---
[facility] Surgical Services - Endoscopy Department Patient Name: Carl Whiting Procedure Date: 01/11/2018 9:31 PM Patient Type: Inpatient Attending MD/ ER Physician: Ellis Adler MD Procedure: ERCP Indications: CBD obstruction, abnormal imaging. Patient Profile: 42 year old male presents for biliary decompression. Providers: Ellis Adler MD Medicines: General Anesthesia, Indomethacin 100 mg [place] Complications: No immediate complications. Estimated blood loss: Minimal. Description of Procedure: After obtaining informed consent, the scope was passed under direct vis ion. Throughout the procedure, the patient's blood pressure, pulse, and oxyg en saturations were monitored continuously. The was introduced through the mouth, and advanced to the duodenum and used to cannulate the bile duct . The ERCP was accomplished without difficulty. The patient tolerated the procedure well. Findings: A batteryman film of the abdomen was obtained. Surgical clips, consistent wi th a previous cholecystectomy, were seen in the area of the right upper quad rant of the abdomen. The esophagus was successfully intubated under direct vision. The scope was advanced to a normal major papilla in the descend ing duodenum without detailed examination of the pharynx, larynx and associ ated structures, and upper GI tract. The upper GI tract was grossly normal. A wire was passed into the biliary tree. The short-nosed traction sphincterotome was passed over the guidewire and the bile duct was then deeply cannulated. Contrast was injected. I personally interpreted the bile duct images. Ductal flow of contrast was adequate. Image quality was adequate. Contrast extended to the entire biliary tree. The lower third of the main bile duct contained a stricture of 3.5cms in the area of the pancreatic head. A 10 mm biliary sphincterotomy was made with a tractio n (standard) sphincterotome using pure cut current. The sphincterotomy oo zed blood. The biliary tree was swept with a 15 mm balloon starting at the bifurcation. Sludge was swept from the duct. One 10 mm by 8 cm covered metal stent was placed into the common bile duct (No [id number] covered stents w ere available). The proximal end of the stent was distal to the bifucation. Bile flowed through the stent. The stent was in good position. Estimated Blood Loss: Estimated blood loss was minimal. Post Op Diagnosis: - A single localized biliary stricture was found in the lower third of the main bile duct. - A biliary sphincterotomy was performed. - The biliary tree was swept and sludge was found. - One covered metal stent was placed into the common bile duct. Recommendation: - [facility]. - NPO till tomorrow. - Continue present medications. - Repeat ERCP in 6 weeks. - Thank you for allowing me to participate in the care of your patient. Attending Participation: I personally performed the entire procedure. Ellis Adler MD Ellis Adler MD 01/11/2018 9:50:43 PM This report has been signed electronicallyEllis Adler MD Number of Addenda: 0 Note Initiated On: 01/11/2018 9:31 PM [email or web address]
--- NOTE | 2018-01-11 22:29 | GIREPORT ---
[facility] Surgical Services - Endoscopy Department Patient Name: Carl Whiting Procedure Date: 01/11/2018 5:18 PM Patient Type: Inpatient Attending MD/ ER Physician: Ellis Adler MD Procedure: Upper EUS Indications: Abnormal abdominal/pelvic CT scan, Elevated liver enzymes, Epigastric abdominal pain, Nausea Patient Profile: 42 year old male presents for evaluation of biliary obstruction, abnorm al imaging, nausea, and epigastric abdominal pain. Providers: Ellis Adler MD Medicines: General Anesthesia Complications: No immediate complications. Estimated blood loss: Minimal. Description of Procedure: After obtaining informed consent, the endoscope was passed under direct vision. Throughout the procedure, the patient's blood pressure, pulse, and oxygen saturations were monitored continuously. The Endosonoscope was introduced through the mouth, and advanced to the second part of duoden um. The Endoscope was introduced through the mouth, and advanced to the sec ond part of duodenum. The upper EUS was accomplished without difficulty. Th e esophagus, stomach, and duodenum were visualized endosonographically. T he patient tolerated the procedure well. Findings: Endoscopic Finding : LA Grade C (one or more mucosal breaks continuous between tops of 2 or more mucosal folds, less than 75% circumference) esophagitis was found. Diffuse moderately erythematous mucosa was found in the entire examined stomach. Biopsies were taken with a cold forceps for histology. Signifi cant fluid was seen in the stomach and was suctioned. An Axios metal stent was found on the posterior wall of the gastric pro ximal gastric body. The stent was clogged with debris. There was a small open ing and a collapsed cyst wall was seen. The stent was grasped with rat toot h forceps and removed through the mouth The examined duodenum was normal. Endosonographic Finding : A lesion suggestive of a cyst with debris was identified in the pancrea tic head. It is not in obvious communication with the pancreatic duct. The lesion measured 35 mm by 35 mm in maximal cross-sectional diameter. The re was a single compartment without septae. The mass was mainly hypoechoic with an area in the middle whihc was anechoic. The outer wall of the lesion was thin. Pancreatic parenchymal abnormalities were noted in the pancreatic head. These consisted of calcifications. Prominent side braches were noted wi th hyperechoic forman. The pancreas was atrophic in the body and tail. There was dilation in the common bile duct which measured up to 15 mm. A distal CBD stricture was noted. There was no sign of significant endosonographic abnormality in the visualized portion of the liver. No masses were identified. Estimated Blood Loss: Estimated blood loss was minimal. Post Op Diagnosis: - LA Grade C reflux esophagitis. - Erythematous mucosa in the stomach. Biopsied. - Pre-existing gastric stent. Removed. - Pancreatic head lesion. Suspect cyst with debris. Atypical for malign sena. - Pancreatic parenchymal abnormalities consisting of calcifications wer e noted in the pancreatic head. - There was dilation in the common bile duct which measured up to 15 mm with CBD stricture. - There was no evidence of significant pathology in the visualized port ion of the liver. Recommendation: - Perform an ERCP today. - Await path results. - Thank you for allowing me to paticipate in the care of your patient. Attending Participation: I personally performed the entire procedure. Ellis Adler MD Ellis Adler MD 01/11/2018 10:28:31 PM This report has been signed electronicallyEllis Adler MD Number of Addenda: 0 Note Initiated On: 01/11/2018 5:18 PM [email or web address]
--- NOTE | 2018-01-11 22:49 | SOAPPROG ---
[facility] Progress Note Assessment/Plan: Assessment: Plan: 01/11/18 22:38 GI note S/p ERCP with stent placement and EUS. See Provation report for details. A/P 1. Elevated LFTs- Mixed pattern with transaminitis as well as obstruction ( increasing alkaline phosphatase). Imaging reveals increasing biliary dilation. Etiology? Unsure. Atypical pattern. Drug/Med induced versus Alcoholic hepatitis versus ischemia versus other? Atypical pattern for just alcoholic hepatitis due to ALT and AST over 1000 with significant elevations in alkaline phosphatase. Will recheck CAMMIE, ASMA and ceruloplasmin. Monitor LFTS and INR. Consider liver bx if worsens/doesnt improve. Objective: Vital Signs Temp Pulse Resp BP Pulse Ox 36.8 C 72 13 126/85 H 95 01/11/18 20:00 01/11/18 22:00 01/11/18 22:00 01/11/18 22:00 01/11/18 22:00 Laboratory Results 01/10/18 05:14 01/11/18 05:50 01/10/18 01/11/18 01/12/18 05:59 05:59 05:59 Intake Total 2329 2150 675 Output Total 700 4100 2050 Balance 1629 -1950 -1375 PT 13.6 SEC (12.0-15.0) 01/11/18 05:50 INR 1.02 (0.83-1.16) 01/11/18 05:50 ICD10 Worksheet Patient Problems: Problems Problem Status Onset Alcohol intoxication Acute Elevated liver enzymes Acute
[2018-01-12] MEDS: DEXMEDETOMIDINE IN 0.9 % NACL 100 ML IV SCH ×3 (00:11→16:03)
[2018-01-12] MEDS: LORazepam 2 MG/ML INJ IVP PRN ×5 (04:29→16:12)
[2018-01-12] MEDS ORDERED: MAGNESIUM SULF 1 GM/DEXTROSE 100 ML IV ONE (04:34)
[2018-01-12] MEDS: ATROPINE PO SCH ×3 (04:59→18:01)
[2018-01-12] MEDS: SCOP PO SCH ×3 (04:59→18:01)
[2018-01-12] MEDS: PHENOBARB PO SCH ×3 (04:59→18:01)
[2018-01-12] MEDS: HYOSCY PO SCH ×3 (04:59→18:01)
[2018-01-12] MEDS: LORazepam 1 MG TAB PO SCH ×3 (06:41→18:01)
[2018-01-12] MEDS: SUCRALFATE 1 GM/10 ML UDCUP PO SCH ×4 (07:45→21:06)
[2018-01-12] MEDS: chlordiazePOXIDE 25 MG CAP PO SCH (07:45)
[2018-01-12] MEDS: INSULIN LISPRO 100 UNIT/ML SC SCH ×4 (08:04→21:08)
--- NOTE | 2018-01-12 08:05 | HOSPPROG ---
Hospitalist Progress Note Assessment/Plan: This is a 42 yo male who recently moved to [place] from [place] who has a hx of chronic ETOH use, pancreatitis, and pseudocyst. He has not been seen at [facility] until this admission. He presented to his new PCP due to epigastric and RUQ pain and because he had recently had elevated liver enzymes. His PCP obtained labs and called him requesting him to present to the ED for evaluation. In the E.D. he was found to have transaminitis. A CT of the abd/pelvis showed pancreatic mass (likely pseudocyst) with biliary and pancreatic duct dilatation. He does not report constitutional symptoms. Lipase was not elevated. He had a EUS, ERCP with stent yesterday. The etiology of his transaminitis with biliary distention is unclear. AI w/u pending. Biopsies are pending He went into significant ETOH WD yesterday requiring transfer to the ICU with Precedex. He remains in WD This morning he has severe epigastric and chest pain. #Transaminitis with biliary distention -likely ETOH hepatitis, but etiology unclear -improving -INR is ok -cont with Prednisone #Encephalopathy: -multifactorial from liver disease and ETOH WD -cont Lactulose -cont CIWA, Benzos #ETOH WD - acute -Precedex -Librium -cont CIWA #Epigastric Pain -normal Lipase -improving -CLD #pseudocyst -Will need serial scans #Lactic Acidosis, resolved #Hyponatremia, resolved #DM #chronic Pain syndrome #IBS #GERD #Hypomagnesemia #HTN: on Lopressor SCD's DNR Plan: Keep ICU/Step Down CIWA/schedule benzo's EKG stat Troponin Doubt that this is cardiac but will obtain initial testing change oral PPI to IV BID change IVF to NS CLD Await w/u total critical care time is 35 minutes Subjective: epigastric pain, chest pain. no SOB. no pedal edema. Objective: Vital Signs Temp Pulse Resp BP Pulse Ox 36.8 C 68 15 134/92 H 94 01/11/18 20:00 01/12/18 06:00 01/12/18 06:00 01/12/18 06:00 01/12/18 06:00 Laboratory Results 01/10/18 05:14 01/12/18 03:55 01/11/18 01/12/18 01/13/18 05:59 05:59 05:59 Intake Total 2150 1555 Output Total 7673 6730 Balance -1950 -995 PT 13.6 SEC (12.0-15.0) 01/11/18 05:50 INR 1.02 (0.83-1.16) 01/11/18 05:50 - Physical Exam Constitutional: no apparent distress Eyes: PERRL, EOMI Ears, Nose, Mouth, Throat: moist mucous membranes, hearing normal Cardiovascular: regular rate and rhythym, No edema Respiratory: no respiratory distress, no rales or rhonchi Gastrointestinal: tenderness (mid epigastric) Musculoskeletal: full muscle strength Neurologic: AAOx3 Psychiatric: interacting appropriately, anxious, No encephalopathic Lymph, Heme, Immunologic: No petechiae ICD10 Worksheet Patient Problems: Problems Problem Status Onset Alcohol intoxication Acute Elevated liver enzymes Acute
[2018-01-12] MEDS: NS 1,000 ML IV SCH (08:08)
--- NOTE | 2018-01-12 08:10 | CPEKG ---
Heart Rate: 63 RR Interval: 952 P-R Interval: 140 QRSD Interval: 110 QT Interval: 464 QTC Interval: 476 P [place]: 16 QRS [place]: 4 T Wave [place]: 2 EKG Severity - ABNORMAL ECG - EKG Impression: SINUS RHYTHM Electronically Signed By: Walter Garcia 13-Jan-2018 05:51:46
--- NOTE | 2018-01-12 08:23 | SOAPPROG ---
LAKESHA Progress Note Assessment/Plan: Assessment: Plan: 01/11/18 22:38 GI note S/p ERCP with stent placement and EUS. See Provation report for details. A/P 1. Elevated LFTs- Mixed pattern with transaminitis as well as obstruction ( increasing alkaline phosphatase). Imaging reveals increasing biliary dilation. Etiology? Unsure. Atypical pattern. Drug/Med induced versus Alcoholic hepatitis versus ischemia versus other? Atypical pattern for just alcoholic hepatitis due to ALT and AST over 1000 with significant elevations in alkaline phosphatase. Will recheck CAMMIE, ASMA and ceruloplasmin. Monitor LFTS and INR. Consider liver bx if worsens/doesnt improve. 01/12/18 08:18 A/P 1. Elevated LFTs- mixed pattern. Does have evidence of biliary obstruction and CBD stent placed. Doubt this is alcoholic hepatitis due to significant elevations in transaminitis and pattern of elevation. Significant improvement in LFTs after stenting. Recommend to monitor LFTs etc. Would also recommend to taper/discontinue steroids. Will follow up on labs ordered. Will need repeat ERCP in 10 weeks for stent removal. GI will chart check and follow intermittently if needed. Please call if needed. Thank you for the consultation ! 2. Esophagitis- recommend PPI therapy. Subjective: cc: Follow up on elevated LFTs Multiple complaints of searing chest pain. Alleviated when he moves. Denies any abdominal pain to me. Objective: Vital Signs Temp Pulse Resp BP Pulse Ox 36.8 C 68 15 134/92 H 94 01/11/18 20:00 01/12/18 06:00 01/12/18 06:00 01/12/18 06:00 01/12/18 06:00 Laboratory Results 01/10/18 05:14 01/12/18 03:55 01/11/18 01/12/18 01/13/18 05:59 05:59 05:59 Intake Total 2150 1555 Output Total 4100 2550 Balance -1950 -995 PT 13.6 SEC (12.0-15.0) 01/11/18 05:50 INR 1.02 (0.83-1.16) 01/11/18 05:50 Physical Exam - Physical Exam General Appearance: alert, no apparent distress EENT: No scleral icterus (R), No scleral icterus (L) Respiratory: lungs clear, normal breath sounds Cardiac/Chest: regular rate, rhythm, No diastolic murmur, No systolic murmur Abdomen: normal bowel sounds, non-tender (no tenderness in midepi on my examination), soft, distended (mild), No guarding, No rebound Skin: normal color, warm/dry Neuro/Psych: alert, normal mood/affect, oriented x 3, 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
[2018-01-12] MEDS: predniSONE 20 MG TAB PO SCH (09:12)
[2018-01-12] MEDS: FOLIC ACID 1 MG TAB PO SCH (09:13)
[2018-01-12] MEDS: MULTIVIT/MINERAL/FERR GLUC 15 ML UDL PO SCH (09:13)
[2018-01-12] MEDS: LACTULOSE 20 GM/30 ML UDCUP PO SCH ×2 (09:13→21:06)
[2018-01-12] MEDS: PANTOPRAZOLE SODIUM 40 MG VIAL IVP SCH ×2 (09:13→21:06)
[2018-01-12] MEDS: THIAMINE HCL 100 MG TAB PO SCH (09:13)
[2018-01-12] MEDS ORDERED: NALOXONE HCL 0.4 MG/ML INJ IVP PRN (09:40)
[2018-01-12] MEDS: HYDROmorphONE/DILAUDID 6 MG/30 ML PCA IV PRN (09:53)
--- NOTE | 2018-01-12 10:33 | GCON ---
[f rep st] CONSULTATION INTENSIVE CARE INTENSIVE CONSULTATION REASON FOR CONSULTATION: Abdominal pain. HISTORY OF PRESENT ILLNESS: The patient is a 42-year-old white male with a past medical history incl uding alcoholism, history of acute hepatitis, irritable bowel syndrome, history of pseudocyst with dr parra, [id number] diabetes, and bipolar disorder. He was admitted on 01/09/2018, with co mplaints of abdominal pain. He was admitted with acute hepatitis, as well as acute hemorrhagic pancr eatitis. At that time, he was also found to have a pancreatic mass. GI was subsequently consulted. He underwent EUS. Lesion was found in the pancreas via Endo sonographic findings suggestive of a cy st with debris. He was found to have a grade C reflux esophagitis. Gastric stent was removed and ER CP was performed. He was transferred to the intensive care unit because of alcohol withdrawals and p ain. In discussion with patient, with the exception of his abdominal pain and anxiety, he is doing r easonably well. Pain is a severe and current pain management is not controlling his. He denies any cough or production of sputum. There is no fever or night sweats. His CIWA is rated a 7 or 8. REVIEW OF SYSTEMS: 10-point review of system was performed and is negative with the exception of wha t is listed in the HPI. ALLERGIES: Calcium channel blockers. PAST MEDICAL HISTORY: Bipolar disorder, alcoholism, anxiety, hepatitis, irritable bowel syndrome, pa ncreatic pseudocyst, status post stent for drainage, and diabetes mellitus. SOCIAL HISTORY: He drinks 1.1 half bottles of wine per day. No drug use. No tobacco use. FAMILY HISTORY: Noncontributory. PHYSICAL EXAMINATION: VITAL SIGNS: Blood pressure 131/99, pulse 72, respirations 14, temperature 36 .4, oxygen saturation 100% on 2 L. GENERAL: A well-developed 42-year-old white male who is in moder ate to severe pain. HEENT: Eyes: CARTER. EOMI. Throat shows no erythema or tonsillar hypertrophy. NECK: Supple. No cervical adenopathy. HEART: Regular rate and rhythm. He is mildly tachycardic. LUNGS: Clear to auscultation. No wheeze or rhonchi. ABDOMEN: Soft, but diffusely tender. Bowel sounds are diminished. EXTREMITIES: Show no clubbing, cyanosis, or edema. LABORATORY DATA: White count is 5, hemoglobin 13, hematocrit 37, platelet count is 148. Sodium 135, potassium 5.0, chloride 99, CO2 27, BUN is 9, creatinine 0.7, glucose is 137. ALT is elevated at 10 95, this is reduced from previous, AST is 463, which is also reduced. Lipase 122. Hepatitis screen is negative. Alcohol level on presentation was 127. IMPRESSION: 1. Alcoholism. 2. Pancreatitis with pseudocyst and recent drainage. 3. Acute hepatitis. 4. Diabetes. Blood sugar reasonably controlled. 5. History of irritable bowel syndrome. 6. History of chronic pain. 7. Esophagitis. RECOMMENDATIONS: 1. Adequate pain control. In this regard, will start patient on EXHAUST AND MUFFLER REPAIRER pump. 2. N.p.o. 3. DVT and PE prophylaxis. 4. Stress ulcer prophylaxis. 5. Proton pump inhibitor. 6. CIWA protocol. /[id number]/MODL
[2018-01-13] MEDS: LORazepam 1 MG TAB PO SCH ×5 (00:05→23:00)
[2018-01-13] MEDS: PHENOBARB PO SCH ×5 (00:06→23:00)
[2018-01-13] MEDS: SCOP PO SCH ×5 (00:06→23:00)
[2018-01-13] MEDS: ATROPINE PO SCH ×5 (00:06→23:00)
[2018-01-13] MEDS: HYOSCY PO SCH ×5 (00:06→23:00)
[2018-01-13 04:23] LABS: PLATELET COUNT 165 10^3/uL (150-400)
[2018-01-13] MEDS: HYDROmorphONE/DILAUDID 6 MG/30 ML PCA IV PRN (04:35)
[2018-01-13 04:36] LABS: INR 0.95 (0.83-1.16); PROTIME(PATIENT) 12.9 SEC (12.0-15.0)
[2018-01-13] MEDS ORDERED: MAGNESIUM SULF 2 GM/WATER 50 ML IV ONE (05:10)
[2018-01-13] MEDS: SUCRALFATE 1 GM/10 ML UDCUP PO SCH ×4 (07:41→20:34)
[2018-01-13] MEDS: MULTIVIT/MINERAL/FERR GLUC 15 ML UDL PO SCH (07:41)
[2018-01-13] MEDS: FOLIC ACID 1 MG TAB PO SCH (07:42)
[2018-01-13] MEDS: PANTOPRAZOLE SODIUM 40 MG VIAL IVP SCH ×2 (07:42→20:35)
[2018-01-13] MEDS: predniSONE 20 MG TAB PO SCH (07:42)
[2018-01-13] MEDS: THIAMINE HCL 100 MG TAB PO SCH (07:42)
[2018-01-13] MEDS: INSULIN LISPRO 100 UNIT/ML SC SCH ×4 (07:45→20:48)
[2018-01-13] MEDS: LACTULOSE 20 GM/30 ML UDCUP PO SCH ×2 (08:10→20:34)
[2018-01-13] MEDS: DEXMEDETOMIDINE IN 0.9 % NACL 100 ML IV SCH (08:11)
--- NOTE | 2018-01-13 11:59 | HOSPPROG ---
Hospitalist Progress Note Assessment/Plan: This is a 42 yo male who recently moved to [place] from [place] who has a hx of chronic ETOH use, pancreatitis, and pseudocyst presenting from PCP with elevated LFTs and found to have both etoh hepatitis and biliary obstruction now s/p EUS/ERCP with likely acute on chronic pancreatitis post ERCP # acute hepatitis: at least partially due to alc hep but alt >>ast as well as more obstructive pattern with increasing alk phos and biliary dilation. s/p ERCP /EUS and stent placement as well as sphincterotomy for stricture noted in CBD. Tylenol level negative, autoimmune and ceruloplasmin labs pending. Will continue to trend, if does not resolve will need liver biopsy. Transaminases have been trending down overall. # chronic pancreatitis with acute exacerbation: significant midepigastric pain now s/p EUS/ERCP, evidence of chronic pancreatitis on imaging with panc calcifications and hx of pseudocyst with what appears to be hemorrhagic pseudocyst on personal review of abd ct. Currently requiring NECKTIE MAKER for pain control however he is also hungry, GI feels it is OK to advance his diet. Will monitor for worsening of sxs on PO. Biopsies of panc mass/presumed pseudocyst pending. # pseudocyts: as above, did have cyst gastrostomy tube placed that on ERCP was removed, noted to be clogged with debris and patient had been told in the past to remove it. Will need continued surveillance to ensure resolution. # etoh w/d: has been severe requiring precedex gtt but today appears to be resolving, working to wean from precedex, continue CIWA # acute encephalopathy: multifactorial but largely metabolic related to etoh w/ d and meds, may be a component of HE and will continue lactulose # hyponatremia: initially resolved but has recurred, will follow and if persists will need to w/u further # lactic acidosis: resolved # DM: started on SSI # psych/bipolar: will resume usual home meds # IP status, patient new to my care, high risk given need for precedex gtt/IV opiates and requiring ICU status. Reviewed with Dr. Sue. > 30 min critical care time spent in review/eval/mgmt of above Subjective: no significant overnight events, pain has been difficult to control but doing better on professor of pathology, continues to have severe anxiety Objective: Vital Signs Temp Pulse Resp BP Pulse Ox 37 C 87 18 123/79 H 94 01/12/18 21:00 01/13/18 11:00 01/13/18 11:00 01/13/18 11:00 01/13/18 11:00 Laboratory Results 01/13/18 04:18 01/13/18 04:18 01/12/18 01/13/18 01/14/18 05:59 05:59 05:59 Intake Total 1555 2753 Output Total 2551 4809 1900 Balance -995 -2072 -1900 PT 12.9 SEC (12.0-15.0) 01/13/18 04:18 INR 0.95 (0.83-1.16) 01/13/18 04:18 awake alert anxious anicteric op clear rrr no mrg cta b soft ttp midepigastrium dec bs no cce warm dry well perfused oriented appropriate anxious ICD10 Worksheet Patient Problems: Problems Problem Status Onset Alcohol intoxication Acute Elevated liver enzymes Acute
--- NOTE | 2018-01-13 16:00 | PDINTPN ---
Pest Control Worker Progress Note Assessment/Plan: Assessment: Acute Hepatitis: EtOH likely contributed, but has dilated bile duct, elevated Alk Phos, ? passed bile duct stone. LFTs falling steadily. Pain improved, off IV meds. Encephalopathy: Improved. Likely due to EtOH withdrawal. Has restarted mood stabilizers EtOH withdrawal: Improved, with CIWAs down to single digits from 20s yesterday. Hx recurrent/chronic pancreatitis Diabetes: BSs in 200s. Likely will improve with stopping steroids, lthough increased PO could cause BSs to rise. Plan: Advance diet. DC IV drips. PT/OT. Stop steroids. Transfer to SDU. Follow BSs. 01/13/18 16:05 01/13/18 16:06 Subjective: Feels better since yesterday, with decreased pain, better appetite, improved strength. Objective: Vital Signs Temp Pulse Resp BP Pulse Ox 37.0 C 82 18 119/77 98 01/13/18 12:00 01/13/18 15:00 01/13/18 15:00 01/13/18 15:00 01/13/18 15:00 Laboratory Results 01/13/18 04:18 01/13/18 04:18 01/12/18 01/13/18 01/14/18 05:59 05:59 05:59 Intake Total 1555 2753 Output Total 2550 4825 1900 Balance -995 -2072 -1900 PT 12.9 SEC (12.0-15.0) 01/13/18 04:18 INR 0.95 (0.83-1.16) 01/13/18 04:18 Physical Exam - Physical Exam General Appearance: alert, no apparent distress EENT: normal ENT inspection Neck: normal inspection Respiratory: lungs clear, normal breath sounds Cardiac/Chest: regular rate, rhythm, No edema Abdomen: normal bowel sounds, No non-tender (RUQ mildly tender) Skin: normal color, warm/dry Extremities: normal inspection Neuro/Psych: alert, normal mood/affect, oriented x 3 ICD10 Worksheet Patient Problems: Problems Problem Status Onset Alcohol intoxication Acute Elevated liver enzymes Acute
[2018-01-13] MEDS: DULoxetine 60 MG CAP PO SCH (16:05)
[2018-01-13] MEDS: GABAPENTIN 300 MG CAP PO SCH ×2 (16:05→23:00)
--- NOTE | 2018-01-13 16:23 | ASMTCMCOM ---
CM Note CM Note Notes: Spoke with pt today. He was transferred from to ICU and is s/p an upper GI ERCP. He was anxious and tearful during our conversation. He thanked staff again for getting his girlfriend Noreen to leave and does not want her to come back. Apparently she left her phone here when security escorted her out and it remains in security. He had requested we call her to have her bring his credit card in. He c/o being very hungry and concerned about not having his Bipolar d/o meds. Informed RN of pt's concerns. When pt was asked if there was anyone else we could call on his behalf he said he was "estranged" from his mother but wanted to think about us calling her. He doesn't know anyone else in this area. He also kept saying all this was "his fault" because of his drinking. He was encouraged to focus on getting through his current medical issues and when he starts to feel better, options for etoh treatment could be discussed. CM will continue to follow. Date Signed: 01/13/2018 04:22 PM Electronically Signed By:SAMARA Alexander
[2018-01-13] MEDS: ONDANSETRON 4 MG/2 ML VIAL IVP PRN (19:12)
[2018-01-13] MEDS: TRIFLUOPERAZINE HCL 1 MG TAB PO SCH (20:42)
[2018-01-14] MEDS ORDERED: BISMUTH SUBSALICYLATE 524 MG/30 ML UDL PO PRN (00:45)
[2018-01-14] MEDS: HYDROmorphONE/DILAUDID 6 MG/30 ML PCA IV PRN (01:55)
[2018-01-14] MEDS: hydrALAZINE 20 MG/ML VIAL IVP PRN (04:47)
[2018-01-14] MEDS: ATROPINE PO SCH ×3 (06:27→18:04)
[2018-01-14] MEDS: LORazepam 1 MG TAB PO SCH ×3 (06:27→21:00)
[2018-01-14] MEDS: PHENOBARB PO SCH ×3 (06:27→18:04)
[2018-01-14] MEDS: HYOSCY PO SCH ×3 (06:27→18:04)
[2018-01-14] MEDS: SCOP PO SCH ×3 (06:27→18:04)
[2018-01-14] MEDS: DULoxetine 60 MG CAP PO SCH (07:56)
[2018-01-14] MEDS: INSULIN LISPRO 100 UNIT/ML SC SCH ×4 (07:56→21:01)
[2018-01-14] MEDS: MULTIVIT/MINERAL/FERR GLUC 15 ML UDL PO SCH (07:56)
[2018-01-14] MEDS: FOLIC ACID 1 MG TAB PO SCH (07:56)
[2018-01-14] MEDS: PANTOPRAZOLE SODIUM 40 MG VIAL IVP SCH (07:56)
[2018-01-14] MEDS: LACTULOSE 20 GM/30 ML UDCUP PO SCH ×2 (07:56→21:00)
[2018-01-14] MEDS: THIAMINE HCL 100 MG TAB PO SCH (07:56)
[2018-01-14] MEDS: GABAPENTIN 300 MG CAP PO SCH ×3 (07:56→21:00)
[2018-01-14] MEDS: SUCRALFATE 1 GM/10 ML UDCUP PO SCH ×5 (07:56→21:00)
[2018-01-14] MEDS ORDERED: POTASSIUM CL 10 MEQ TAB PO ONE ×2 (08:13→22:44)
[2018-01-14] MEDS ORDERED: MAGNESIUM SULF 1 GM/DEXTROSE 100 ML IV ONE (08:33)
[2018-01-14] MEDS ORDERED: MAGNESIUM SULF 1 GM/DEXTROSE 100 ML BAG IV ONE (08:57)
[2018-01-14] MEDS: PANTOPRAZOLE SODIUM 40 MG TAB PO SCH ×2 (09:15→21:00)
[2018-01-14] MEDS: TRIFLUOPERAZINE HCL 1 MG TAB PO SCH ×2 (09:21→21:30)
--- NOTE | 2018-01-14 14:07 | ASMTCMCOM ---
CM Note CM Note Notes: Spoke with pt today - he asked this CM to call his mother Mel [phone] to inform her he was in the hospital. Called and left message. Pt still very tearful today but has improved. He has transferred to . CM will continue to follow. Date Signed: 01/14/2018 02:06 PM Electronically Signed By:SAMARA Alexander
--- NOTE | 2018-01-14 14:26 | HOSPPROG ---
Hospitalist Progress Note Assessment/Plan: This is a 42 yo male who recently moved to [place] from [place] who has a hx of chronic ETOH use, pancreatitis, and pseudocyst presenting from PCP with elevated LFTs and found to have both etoh hepatitis and biliary obstruction now s/p EUS/ERCP with likely acute on chronic pancreatitis post ERCP # acute hepatitis: at least partially due to alc hep but alt >>ast as well as more obstructive pattern with increasing alk phos and biliary dilation. s/p ERCP /EUS and stent placement as well as sphincterotomy for stricture noted in CBD. Tylenol level negative, autoimmune and ceruloplasmin labs pending. Will continue to trend, if does not resolve will need liver biopsy. Transaminases have been trending down overall. Discussed with GI, this seems unlikely to be all alc hep given extremely high transaminases # chronic pancreatitis with acute exacerbation: significant midepigastric pain s/p EUS/ERCP, evidence of chronic pancreatitis on imaging with panc calcifications and hx of pseudocyst with what appears to be hemorrhagic pseudocyst on personal review of abd ct. 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 Biopsies of panc mass/presumed pseudocyst pending. # pseudocysts: as above, did have cyst gastrostomy tube placed that on ERCP was removed, noted to be clogged with debris and patient had been told in the past to remove it. Will need continued surveillance to ensure resolution. # etoh w/d: has been severe requiring precedex gtt but appears to be resolving, weaned from precedex, some of his higher CIWA scores are related to anxiety and perhaps some tolerance to benzos as he has been on these for quite some time. Will dc ciwa given that he is overmedicated on it due to his anxiety and continue home ativan with additional as needed for anxiety. # acute encephalopathy: multifactorial but largely metabolic related to etoh w/ d and meds, may be a component of HE and will continue lactulose # hyponatremia: initially resolved but has recurred, will follow and if persists will need to w/u further # lactic acidosis: resolved # DM: started on SSI # psych/bipolar: continue usual home meds # IP status, patient new to my care, Reviewed with Dr. Sue. > 30 min critical care time spent in review/eval/mgmt of above Subjective: no significant overnight events, transferred out of ICU but concerns by nursing that he is having more withdrawal, in evaluation it appears this is more anxiety driven Objective: Vital Signs Temp Pulse Resp BP Pulse Ox 38.2 C 107 H 14 142/98 H 95 01/14/18 13:11 01/14/18 13:06 01/14/18 13:06 01/14/18 13:06 01/14/18 13:06 Laboratory Results 01/13/18 04:18 01/14/18 04:45 01/13/18 01/14/18 01/15/18 05:59 05:59 05:59 Intake Total 2753 4224.8 Output Total 4825 5725 750 Balance -2072 -1500.2 -750 PT 12.9 SEC (12.0-15.0) 01/13/18 04:18 INR 0.95 (0.83-1.16) 01/13/18 04:18 awake alert anxious anicteric op clear rrr no mrg cta b soft ttp midepigastrium dec bs no cce warm dry well perfused oriented appropriate anxious ICD10 Worksheet Patient Problems: Problems Problem Status Onset Alcohol intoxication Acute Elevated liver enzymes Acute
[2018-01-14] MEDS: NS 1,000 ML IV SCH (15:12)
[2018-01-14] MEDS ORDERED: LORazepam 2 MG/ML INJ IVP PRN (15:19)
[2018-01-14] MEDS: ONDANSETRON 4 MG/2 ML VIAL IVP PRN (16:55)
[2018-01-14] MEDS ORDERED: LORazepam 1 MG TAB PO SCH (18:00)
[2018-01-15] MEDS: PHENOBARB PO SCH ×4 (00:35→18:12)
[2018-01-15] MEDS: SCOP PO SCH ×4 (00:35→18:12)
[2018-01-15] MEDS: ATROPINE PO SCH ×4 (00:35→18:12)
[2018-01-15] MEDS: HYOSCY PO SCH ×4 (00:35→18:12)
[2018-01-15] MEDS: LORazepam 2 MG/ML INJ IVP PRN ×2 (04:59→14:50)
[2018-01-15] MEDS: HYDROmorphONE/DILAUDID 6 MG/30 ML PCA IV PRN (05:23)
[2018-01-15] MEDS: INSULIN LISPRO 100 UNIT/ML SC SCH ×4 (08:19→21:37)
[2018-01-15] MEDS: SUCRALFATE 1 GM/10 ML UDCUP PO SCH ×2 (08:20→12:24)
[2018-01-15] MEDS: LACTULOSE 20 GM/30 ML UDCUP PO SCH ×2 (08:20→21:36)
[2018-01-15] MEDS: PANTOPRAZOLE SODIUM 40 MG TAB PO SCH ×2 (08:21→21:36)
[2018-01-15] MEDS: TRIFLUOPERAZINE HCL 1 MG TAB PO SCH ×2 (08:21→21:36)
[2018-01-15] MEDS: FOLIC ACID 1 MG TAB PO SCH (08:21)
[2018-01-15] MEDS: GABAPENTIN 300 MG CAP PO SCH ×3 (08:21→21:35)
[2018-01-15] MEDS: DULoxetine 60 MG CAP PO SCH (08:21)
[2018-01-15] MEDS: LORazepam 1 MG TAB PO SCH (08:21)
[2018-01-15] MEDS: THIAMINE HCL 100 MG TAB PO SCH (08:21)
[2018-01-15] MEDS ORDERED: MAGNESIUM SULF 1 GM/DEXTROSE 100 ML IV ONE (08:57)
[2018-01-15] MEDS ORDERED: HYDROmorphONE/DILAUDID 1 MG/ML INJ IVP PRN (15:37)
--- NOTE | 2018-01-15 15:45 | HOSPPROG ---
Hospitalist Progress Note Assessment/Plan: * Biliary stricture s/p stent -? external compression from pseudocyst -f/u stent removal 10 weeks * Hemorrhagic pancreatic pseudocyst - acute on chronic pancreatitis -advised Etoh cessation -repeat imaging as outpatient - biopsies pending ? 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 all Etoh hepatitis * Toxic/metabolic encephalopathy - improved * Hyponatremia -follow * DM -resume home meds -suspect insulin deficiency due to chronic pancreatitis Subjective: Tolerating PO, pain less, ready to come off IV dilaudid LAB ASSISTANT tomorrow morning Objective: Vital Signs Temp Pulse Resp BP Pulse Ox 36.8 C 101 H 16 136/107 H 92 01/15/18 11:49 01/15/18 11:49 01/15/18 11:49 01/15/18 11:49 01/15/18 11:49 Laboratory Results 01/13/18 04:18 01/14/18 04:45 01/14/18 01/15/18 01/16/18 05:59 05:59 05:59 Intake Total 4224.8 1564.6 594.8 Output Total 5725 3050 1525 Balance -1500.2 -1485.4 -930.2 PT 12.9 SEC (12.0-15.0) 01/13/18 04:18 INR 0.95 (0.83-1.16) 01/13/18 04:18 CT scan abd - hemorrhagic pseudocyst EUS reviewed - biliary stent place, stricture - Physical Exam Constitutional: no apparent distress, appears nourished, not in pain Cardiovascular: regular rate and rhythym, no murmur, rub, or gallop Respiratory: no respiratory distress, no rales or rhonchi, clear to auscultation Gastrointestinal: normoactive bowel sounds, soft, non-tender abdomen, no palpable masses Skin: no rashes or abrasions, no fluctuance, no induration Neurologic: AAOx3, sensation intact bilaterally Psychiatric: interacting appropriately, not anxious, not encephalopathic, thought process linear ICD10 Worksheet Patient Problems: Problems Problem Status Onset Alcohol intoxication Acute Elevated liver enzymes Acute
[2018-01-15] MEDS: LORazepam 0.5 MG TAB PO SCH ×2 (16:34→21:39)
[2018-01-15] MEDS: SUCRALFATE 1 GM TAB PO SCH ×2 (18:11→20:09)
[2018-01-15] MEDS: metFORMIN HCL 500 MG TAB PO SCH (18:12)
[2018-01-16] MEDS: ATROPINE PO SCH ×5 (00:35→23:48)
[2018-01-16] MEDS: SCOP PO SCH ×5 (00:35→23:48)
[2018-01-16] MEDS: PHENOBARB PO SCH ×5 (00:35→23:48)
[2018-01-16] MEDS: HYOSCY PO SCH ×5 (00:35→23:48)
[2018-01-16 05:25] LABS: PLATELET COUNT 353 10^3/uL (150-400)
[2018-01-16] MEDS: LORazepam 1 MG TAB PO PRN (06:12)
[2018-01-16] MEDS ORDERED: MAGNESIUM SULF 1 GM/DEXTROSE 100 ML IV ONE (08:01)
[2018-01-16] MEDS: INSULIN LISPRO 100 UNIT/ML SC SCH ×4 (08:12→21:17)
[2018-01-16] MEDS: LACTULOSE 20 GM/30 ML UDCUP PO SCH ×2 (08:13→21:17)
[2018-01-16] MEDS: THIAMINE HCL 100 MG TAB PO SCH (08:13)
[2018-01-16] MEDS: PANTOPRAZOLE SODIUM 40 MG TAB PO SCH ×2 (08:13→21:18)
[2018-01-16] MEDS: FOLIC ACID 1 MG TAB PO SCH (08:13)
[2018-01-16] MEDS: TRIFLUOPERAZINE HCL 1 MG TAB PO SCH ×2 (08:13→21:17)
[2018-01-16] MEDS: LORazepam 0.5 MG TAB PO SCH ×3 (08:14→21:17)
[2018-01-16] MEDS: GABAPENTIN 300 MG CAP PO SCH ×3 (08:14→21:17)
[2018-01-16] MEDS: metFORMIN HCL 500 MG TAB PO SCH ×2 (08:14→17:51)
[2018-01-16] MEDS: DULoxetine 60 MG CAP PO SCH (08:14)
[2018-01-16] MEDS: SUCRALFATE 1 GM TAB PO SCH ×4 (08:14→21:18)
[2018-01-16] MEDS: MULTIVIT/MINERAL/FERR GLUC 15 ML UDL PO SCH (09:05)
[2018-01-16] MEDS: Empagliflozin [Jardiance] 10 MG PO SCH (09:38)
[2018-01-16] MEDS: oxyCODONE IR 5 MG TAB PO PRN ×4 (12:45→23:36)
--- NOTE | 2018-01-16 15:08 | HOSPPROG ---
Hospitalist Progress Note Assessment/Plan: * Biliary stricture s/p stent -? external compression from pseudocyst -f/u stent removal 10 weeks -LFT normalized * Hemorrhagic pancreatic pseudocyst - acute on chronic pancreatitis -advised Etoh cessation -repeat imaging as outpatient - biopsies pending ? 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 Etoh -now new normal * Toxic/metabolic encephalopathy - improved * Hyponatremia -resolved * DM -resume home meds -suspect insulin deficiency due to chronic pancreatitis * Back pain - muscle spasm vs. recurrence of pancreatitis -trial of Robaxin -continue to monitor Subjective: New right scapular pain - worried its recurrence of pancreatitis because sometimes he gets referred pain there. Also used RUE to shave and other activities, so might be muscle spasm Objective: Vital Signs Temp Pulse Resp BP Pulse Ox 36.9 C 88 18 146/93 H 93 01/16/18 12:49 01/16/18 12:49 01/16/18 12:49 01/16/18 12:49 01/16/18 12:49 Laboratory Results 01/16/18 05:00 01/16/18 05:00 01/15/18 01/16/18 01/17/18 05:59 05:59 05:59 Intake Total 1564.6 1427.8 149.7 Output Total 3050 3275 825 Balance -1485.4 -1847.2 -675.3 PT 12.9 SEC (12.0-15.0) 01/13/18 04:18 INR 0.95 (0.83-1.16) 01/13/18 04:18 IV dilaudid - stopping today - transition to PO - Physical Exam Constitutional: no apparent distress, appears nourished, not in pain Cardiovascular: regular rate and rhythym, no murmur, rub, or gallop Respiratory: no respiratory distress, no rales or rhonchi, clear to auscultation Gastrointestinal: normoactive bowel sounds, soft, non-tender abdomen, no palpable masses Skin: no rashes or abrasions, no fluctuance, no induration Neurologic: AAOx3, sensation intact bilaterally Psychiatric: interacting appropriately, anxious, No encephalopathic, No depressed, No flat affect, No poor insight, No poor judgement, No poor memory ICD10 Worksheet Patient Problems: Problems Problem Status Onset Alcohol intoxication Acute Elevated liver enzymes Acute
--- NOTE | 2018-01-16 15:44 | ASMTCMCOM ---
CM Note CM Note Notes: Pt requesting referrals for PCP's and psychiatrists. CM provided 2 referrals for PCP clinics and 3 referrals for psychiatrists located in [place]. Pt also requested contact info for his GI physician; this was also given to him. Pt states he might D/C tomorrow. CM will follow. Pt at this time has no D/C needs and it is expected that he D/C independently. D/C Plan: Independent Date Signed: 01/16/2018 03:44 PM Electronically Signed By:Yaneth Erickson
[2018-01-16] MEDS: METHOCARBAMOL 500 MG TAB PO SCH ×2 (16:08→21:17)
[2018-01-16] MEDS: LIPASE 6,000/AMYLASE/PROTEASE (CREON) 1 CAP PO SCH (17:51)
[2018-01-17] MEDS: oxyCODONE IR 5 MG TAB PO PRN ×3 (02:36→12:57)
[2018-01-17] MEDS: PHENOBARB PO SCH ×3 (05:36→19:17)
[2018-01-17] MEDS: ATROPINE PO SCH ×3 (05:36→19:17)
[2018-01-17] MEDS: HYOSCY PO SCH ×3 (05:36→19:17)
[2018-01-17] MEDS: SCOP PO SCH ×3 (05:36→19:17)
[2018-01-17] MEDS: INSULIN LISPRO 100 UNIT/ML SC SCH ×4 (09:17→21:20)
[2018-01-17] MEDS: LACTULOSE 20 GM/30 ML UDCUP PO SCH ×2 (09:18→21:20)
[2018-01-17] MEDS: DULoxetine 60 MG CAP PO SCH (09:19)
[2018-01-17] MEDS: GABAPENTIN 300 MG CAP PO SCH ×3 (09:20→21:20)
[2018-01-17] MEDS: METHOCARBAMOL 500 MG TAB PO SCH ×3 (09:20→21:20)
[2018-01-17] MEDS: SUCRALFATE 1 GM TAB PO SCH ×4 (09:20→21:21)
[2018-01-17] MEDS: PANTOPRAZOLE SODIUM 40 MG TAB PO SCH ×2 (09:21→21:21)
[2018-01-17] MEDS: metFORMIN HCL 500 MG TAB PO SCH ×2 (09:22→18:35)
[2018-01-17] MEDS: LORazepam 0.5 MG TAB PO SCH ×3 (09:22→21:20)
[2018-01-17] MEDS: TRIFLUOPERAZINE HCL 1 MG TAB PO SCH ×2 (09:22→21:20)
[2018-01-17] MEDS: THIAMINE HCL 100 MG TAB PO SCH (09:23)
[2018-01-17] MEDS: FOLIC ACID 1 MG TAB PO SCH (09:23)
[2018-01-17] MEDS: Empagliflozin [Jardiance] 10 MG PO SCH (09:24)
[2018-01-17] MEDS: MULTIVIT/MINERAL/FERR GLUC 15 ML UDL PO SCH (09:25)
[2018-01-17] MEDS: LIPASE 6,000/AMYLASE/PROTEASE (CREON) 1 CAP PO SCH ×3 (09:25→18:35)
[2018-01-17] MEDS: LORazepam 1 MG TAB PO PRN ×2 (11:50→20:02)
--- NOTE | 2018-01-17 12:47 | HOSPPROG ---
Hospitalist Progress Note Assessment/Plan: * Biliary stricture s/p stent -? external compression from pseudocyst vs. scarring from chronic pancreatitis -f/u stent removal 10 weeks -LFT normalized post stent -low likelihood malignant - no pathology sent * Hemorrhagic pancreatic pseudocyst - acute on chronic pancreatitis -advised Etoh cessation -repeat imaging as outpatient -s/p cyst gastrostomy removal -now with recurrence of pain - ? recurrent pancreatitis -does not mount a lipase response -patient requests reconsult with GI - d/w Dr. Adler * Chronic pancreatitis -try pancreatic enzymes * Etoh withdrawal -wean ativan back down to home doses * Bipolar/anxiety/PTSD -chronic benzos -needs urgent outpatient follow-up post discharge * Increased LFT - due to biliary obstruction vs. Etoh -now near normal * Toxic/metabolic encephalopathy - improved * Hyponatremia -resolved * DM -resume home meds -suspect insulin deficiency due to chronic pancreatitis * Back pain - muscle spasm vs. recurrence of pancreatitis -trial of Robaxin -continue to monitor Subjective: Back pain severe last night, didn't sleep. Has never used oxycodone ever before last night. Pain is similar to his pancreatitis pain, although no pain in front now, back only. Objective: Vital Signs Temp Pulse Resp BP Pulse Ox 37.1 C 77 17 146/107 H 98 01/17/18 11:18 01/17/18 11:18 01/17/18 11:18 01/17/18 11:18 01/17/18 11:18 Laboratory Results 01/16/18 05:00 01/16/18 05:00 01/16/18 01/17/18 01/18/18 05:59 05:59 05:59 Intake Total 1427.8 1199.7 Output Total 3275 825 Balance -1847.2 374.7 PT 12.9 SEC (12.0-15.0) 01/13/18 04:18 INR 0.95 (0.83-1.16) 01/13/18 04:18 - Physical Exam Constitutional: no apparent distress, appears nourished, not in pain Cardiovascular: regular rate and rhythym, no murmur, rub, or gallop Respiratory: no respiratory distress, no rales or rhonchi, clear to auscultation Gastrointestinal: normoactive bowel sounds, soft, non-tender abdomen, no palpable masses Skin: no rashes or abrasions, no fluctuance, no induration Neurologic: AAOx3, sensation intact bilaterally Psychiatric: interacting appropriately, not anxious, not encephalopathic, thought process linear ICD10 Worksheet Patient Problems: Problems Problem Status Onset Alcohol intoxication Acute Elevated liver enzymes Acute
[2018-01-17] MEDS: HYDROmorphONE/DILAUDID 1 MG/ML INJ IVP PRN ×4 (15:01→21:21)
[2018-01-17] MEDS: NS 1,000 ML IV SCH (15:02)
[2018-01-17] MEDS ORDERED: IOPAMIDOL (ISOVUE 370) 100 ML BTL IV ONE (17:52)
[2018-01-17] MEDS ORDERED: LACTULOSE 20 GM/30 ML UDCUP PO PRN (18:40)
[2018-01-17] MEDS ORDERED: MAGNESIUM HYDROXIDE 30 ML UDCUP PO PRN (18:40)
[2018-01-17] MEDS ORDERED: POLYETHYLENE GLYCOL 3350 17 GM PKT PO PRN (18:40)
[2018-01-17] MEDS ORDERED: BISACODYL 10 MG SUPP PR PRN (18:40)
[2018-01-17] MEDS: ONDANSETRON 4 MG/2 ML VIAL IVP PRN (19:16)
[2018-01-17] MEDS: SENNOSIDES/DOCUSATE SODIUM TAB PO SCH (21:20)
[2018-01-18] MEDS: NS 1,000 ML IV SCH ×3 (00:04→20:16)
[2018-01-18] MEDS: HYOSCY PO SCH ×4 (00:04→17:37)
[2018-01-18] MEDS: ATROPINE PO SCH ×4 (00:04→17:37)
[2018-01-18] MEDS: PHENOBARB PO SCH ×4 (00:04→17:37)
[2018-01-18] MEDS: SCOP PO SCH ×4 (00:04→17:37)
[2018-01-18] MEDS: HYDROmorphONE/DILAUDID 1 MG/ML INJ IVP PRN ×6 (00:04→13:40)
[2018-01-18 05:05] LABS: PLATELET COUNT 542 10^3/uL (150-400)
[2018-01-18] MEDS: GABAPENTIN 300 MG CAP PO SCH ×3 (07:57→21:04)
[2018-01-18] MEDS: LORazepam 0.5 MG TAB PO SCH ×3 (07:57→21:05)
[2018-01-18] MEDS: DULoxetine 60 MG CAP PO SCH (07:57)
[2018-01-18] MEDS: THIAMINE HCL 100 MG TAB PO SCH (07:57)
[2018-01-18] MEDS: SUCRALFATE 1 GM TAB PO SCH ×4 (07:57→21:05)
[2018-01-18] MEDS: FOLIC ACID 1 MG TAB PO SCH (07:57)
[2018-01-18] MEDS: SENNOSIDES/DOCUSATE SODIUM TAB PO SCH ×2 (07:58→21:06)
[2018-01-18] MEDS: PANTOPRAZOLE SODIUM 40 MG TAB PO SCH ×2 (07:58→21:05)
[2018-01-18] MEDS: LACTULOSE 20 GM/30 ML UDCUP PO SCH ×2 (07:58→21:04)
[2018-01-18] MEDS: TRIFLUOPERAZINE HCL 1 MG TAB PO SCH ×2 (07:58→21:04)
[2018-01-18] MEDS: INSULIN LISPRO 100 UNIT/ML SC SCH ×4 (07:59→21:05)
[2018-01-18] MEDS: LIPASE 6,000/AMYLASE/PROTEASE (CREON) 1 CAP PO SCH ×3 (07:59→17:31)
[2018-01-18] MEDS: metFORMIN HCL 500 MG TAB PO SCH ×2 (07:59→17:33)
[2018-01-18] MEDS: METHOCARBAMOL 500 MG TAB PO SCH ×3 (07:59→21:04)
[2018-01-18] MEDS: Empagliflozin [Jardiance] 10 MG PO SCH (08:00)
[2018-01-18] MEDS: LORazepam 1 MG TAB PO PRN (12:12)
[2018-01-18] MEDS: MULTIVIT/MINERAL/FERR GLUC 15 ML UDL PO SCH (12:13)
--- NOTE | 2018-01-18 15:27 | HOSPPROG ---
Hospitalist Progress Note Assessment/Plan: The patient is a 42-year-old male with PMH chronic pancreatitis who was admitted for hemorrhagic pancreatic pseudocyst with stricture and acute pancreatitis. ASSESSMENT/PLAN: Hemorrhagic pancreatic pseudocyst, s/p cyst gastrostomy removal Acute on chronic pancreatitis, improved Biliary stricture, status post stent -Possibly from external compression pseudocyst vs chronic pancreatitis scarring. -Stent to be removed after 10 weeks. -LFTs improved post stent placement. -Recurrent severe pain yesterday so pt was put on NPO. Advancing diet to clear liquids bc pt thinks he may tolerate it. -Consider celiac ganglion block, if GI or IR can do it to help w/ severe recurrent pain. -Recommended that pt take po pain meds. He has only been relying on IV Dilaudid. Decreasing frequency of IV Dilaudid. -Panc enzymes. Alcohol abuse -Pt past withdrawal period. -low dose Ativan, as pt takes it at home. -pt has been counseled on alcohol cessation. Hyperkalemia, mild -likely 2/2 hemolysis. -Recheck BMP in AM. Bipolar/anxiety/PTSD -pt on chronic Ativan TID -Needs outpt FU w/ Psych urgently. DM -home meds. Back pain -stable. Toxic metabolic encephalopathy, resolved Hyponatremia, resolved VTE prophylaxis: SCDs Code Status: DNR Disposition: Med surge with discharge anticipated in the next 1-2 days, whenever the patient is tolerating a diet and has adequate pain control. This patient is new to me. Reviewed patient's chart/records for this visit. ____ Subjective: Pt feels pain is well controlled w/ IV Dilaudid every 2 hours. He has not even tried the po oxycodone that was recommended previously. He denies N /V. +Abd pain. Objective: Vital Signs Temp Pulse Resp BP Pulse Ox 36.6 C 74 14 162/106 H 94 01/18/18 15:01 01/18/18 15:01 01/18/18 15:01 01/18/18 15:01 01/18/18 15:01 Laboratory Results 01/18/18 04:46 01/18/18 04:46 01/17/18 01/18/18 01/19/18 05:59 05:59 05:59 Intake Total 1199.7 2925 Output Total 825 500 900 Balance 374.7 2425 -900 PT 12.9 SEC (12.0-15.0) 01/13/18 04:18 INR 0.95 (0.83-1.16) 01/13/18 04:18 OBJECTIVE: Physical Exam: General: The patient is a male who is alert and in no acute distress. HEENT: normocephalic, extraocular movements intact, conjunctivae clear. Mucous membranes moist. Neck: trachea midline, no visible masses. Abd: soft and nondistended. Mild tenderness midepigastrium. Musculoskeletal: Normal muscle tone/bulk. Neuro: cranial nerves II XII grossly intact. Intact gross motor and sensory function. Psych: Appropriate mood and appropriate affect. Skin: No pallor. No petechiae. Heme/lymph: No peripheral edema at bilateral lower legs. Labs/Imaging/Other Tests: Personally reviewed/interpreted. ICD10 Worksheet Patient Problems: Problems Problem Status Onset Alcohol intoxication Acute Elevated liver enzymes Acute
[2018-01-18] MEDS: oxyCODONE IR 5 MG TAB PO PRN ×2 (17:32→21:05)
[2018-01-19] MEDS: PHENOBARB PO SCH ×4 (00:10→18:42)
[2018-01-19] MEDS: ATROPINE PO SCH ×4 (00:10→18:42)
[2018-01-19] MEDS: HYOSCY PO SCH ×4 (00:10→18:42)
[2018-01-19] MEDS: oxyCODONE IR 5 MG TAB PO PRN ×7 (00:10→21:50)
[2018-01-19] MEDS: SCOP PO SCH ×4 (00:10→18:42)
[2018-01-19] MEDS: HYDROmorphONE/DILAUDID 1 MG/ML INJ IVP PRN ×3 (05:16→23:04)
[2018-01-19] MEDS: NS 1,000 ML IV SCH ×2 (05:20→22:39)
[2018-01-19] MEDS: MULTIVIT/MINERAL/FERR GLUC 15 ML UDL PO SCH (10:04)
[2018-01-19] MEDS: GABAPENTIN 300 MG CAP PO SCH ×3 (10:04→21:51)
[2018-01-19] MEDS: metFORMIN HCL 500 MG TAB PO SCH ×2 (10:04→17:36)
[2018-01-19] MEDS: SENNOSIDES/DOCUSATE SODIUM TAB PO SCH ×2 (10:04→21:52)
[2018-01-19] MEDS: METHOCARBAMOL 500 MG TAB PO SCH ×3 (10:05→22:01)
[2018-01-19] MEDS: LIPASE 6,000/AMYLASE/PROTEASE (CREON) 1 CAP PO SCH ×3 (10:05→17:36)
[2018-01-19] MEDS: TRIFLUOPERAZINE HCL 1 MG TAB PO SCH ×2 (10:06→21:52)
[2018-01-19] MEDS: DULoxetine 60 MG CAP PO SCH (10:06)
[2018-01-19] MEDS: FOLIC ACID 1 MG TAB PO SCH (10:06)
[2018-01-19] MEDS: SUCRALFATE 1 GM TAB PO SCH ×4 (10:07→21:52)
[2018-01-19] MEDS: PANTOPRAZOLE SODIUM 40 MG TAB PO SCH ×2 (10:07→21:52)
[2018-01-19] MEDS: LORazepam 0.5 MG TAB PO SCH ×3 (10:07→21:51)
[2018-01-19] MEDS: INSULIN LISPRO 100 UNIT/ML SC SCH ×4 (10:09→22:02)
[2018-01-19] MEDS: LACTULOSE 20 GM/30 ML UDCUP PO SCH ×2 (10:09→21:53)
[2018-01-19] MEDS: Empagliflozin [Jardiance] 10 MG PO SCH (10:10)
[2018-01-19] MEDS: THIAMINE HCL 100 MG TAB PO SCH (10:10)
--- NOTE | 2018-01-19 12:17 | HOSPPROG ---
Hospitalist Progress Note Assessment/Plan: 42-year-old man with alcoholism is admitted with abdominal pain. Has a history of chronic pancreatitis and pseudocyst, he had some biliary stricture likely from possible external compression and is status post stent placement with improvement in his LFTs. He has had intermittent abdominal pain which got worse yesterday. It has improved with NPO status, will gradually advance from clear liquids to regular diet today if he tolerates it well he can possibly go home tomorrow. Will go slowly given his recent worsening abdominal pain Saturday # Biliary stricture s/p stent * Question external compression from pseudocyst versus scarring from chronic pancreatitis * Status post stent placement here follow up with Dr. Adler in 10 weeks for removal * LFTs normalizing, doubt malignancy # hemorrhagic pancreatic pseudocyst, acute on chronic pancreatitis * Alcohol cessation * Repeat imaging as outpatient * Recurrent pain over the last 2 days, improving now that he is NPO * Slowly advance diet today, if he tolerates pain on oral medicines he can be discharged tomorrow * Pancreatic enzymes # alcohol withdrawal, patient passed withdrawal on his chronic benzo dose for his anxiety # bipolar disease/anxiety/PTSD * Chronic benzodiazepines continue same dose * Outpatient follow-up # diabetes, on home meds likely insulin deficiency due to chronic pancreatitis # back pain: I suspect this is most likely related to his pancreatitis rather than acute back issue. Disposition: Advance diet today, if he tolerates this without significant increase in pain he can be discharged tomorrow with a short supply of oral pain medications. He will need outpatient follow-up. Subjective: Patient new to me and chart reviewed. His pain is better and did need IV pain medicines overnight. Wishing to advance slowly today his diet to see if he is able to tolerate the pain on orals only. Objective: Vital Signs Temp Pulse Resp BP Pulse Ox 36.9 C 110 H 18 126/89 H 93 01/19/18 08:00 01/19/18 08:00 01/19/18 08:00 01/19/18 08:00 01/19/18 08:00 Laboratory Results 01/18/18 04:46 01/18/18 04:46 01/18/18 01/19/18 01/20/18 05:59 05:59 05:59 Intake Total 2925 4500 Output Total 500 2550 Balance 2425 1950 PT 12.9 SEC (12.0-15.0) 01/13/18 04:18 INR 0.95 (0.83-1.16) 01/13/18 04:18 - Physical Exam Constitutional: uncomfortable Eyes: PERRL, EOMI Ears, Nose, Mouth, Throat: moist mucous membranes Cardiovascular: regular rate and rhythym, no murmur, rub, or gallop Respiratory: no respiratory distress, no rales or rhonchi Gastrointestinal: normoactive bowel sounds, tenderness (Mild epigastric) Genitourinary: no bladder fullness Skin: warm, normal color Musculoskeletal: full muscle strength Neurologic: AAOx3 Psychiatric: interacting appropriately ICD10 Worksheet Patient Problems: Problems Problem Status Onset Alcohol intoxication Acute Elevated liver enzymes Acute
--- NOTE | 2018-01-19 18:25 | ASMTCMCOM ---
CM Note CM Note Notes: Reviewed chart regarding discharge plan of care, pt's progress. Five voice messages received on CM line from pt's mother Mel Whiting last week. It is unclear if messages were picked up and/or returned. Pt's mother insisting CM return her call with updates. Met with pt to discuss - pt is 42 yrs old and confidential. Per pt, he is estranged from his mother and would rather she not receive updates from the hospital. Pt to call her back. Pt requesting a consult with [facility] RN prior to discharge on Saturday01/20/18. Consult previously ordered in system. Left voice message for Mónica to see pt on Saturday. Pt also seeking outpt resources for a psychiatrist and medications; update left for Mónica and Lizzie, client services manager of . Anticipate pt will likely discharge home independently when medically stable. CM will continue to follow for any other issues or concerns. Current DIscharge Plan: Home independently Date Signed: 01/19/2018 06:25 PM Electronically Signed By:Samia Jama RN
[2018-01-20] MEDS: ATROPINE PO SCH ×2 (00:08→05:17)
[2018-01-20] MEDS: SCOP PO SCH ×2 (00:08→05:17)
[2018-01-20] MEDS: HYOSCY PO SCH ×2 (00:08→05:17)
[2018-01-20] MEDS: PHENOBARB PO SCH ×2 (00:08→05:17)
[2018-01-20] MEDS: LORazepam 2 MG/ML INJ IVP PRN ×2 (00:48→10:04)
[2018-01-20] MEDS: oxyCODONE IR 5 MG TAB PO PRN ×4 (03:27→13:59)
[2018-01-20 05:06] LABS: PLATELET COUNT 653 10^3/uL (150-400)
[2018-01-20] MEDS: HYDROmorphONE/DILAUDID 1 MG/ML INJ IVP PRN (05:15)
[2018-01-20 08:13] VITALS: BP 162/102
[2018-01-20] MEDS: INSULIN LISPRO 100 UNIT/ML SC SCH (08:21)
[2018-01-20] MEDS: LACTULOSE 20 GM/30 ML UDCUP PO SCH (08:21)
[2018-01-20] MEDS: SUCRALFATE 1 GM TAB PO SCH (08:21)
[2018-01-20] MEDS: LIPASE 6,000/AMYLASE/PROTEASE (CREON) 1 CAP PO SCH ×2 (08:22→14:00)
[2018-01-20] MEDS: PANTOPRAZOLE SODIUM 40 MG TAB PO SCH (08:22)
[2018-01-20] MEDS: TRIFLUOPERAZINE HCL 1 MG TAB PO SCH (08:22)
[2018-01-20] MEDS: GABAPENTIN 300 MG CAP PO SCH (08:23)
[2018-01-20] MEDS: SENNOSIDES/DOCUSATE SODIUM TAB PO SCH (08:23)
[2018-01-20] MEDS: FOLIC ACID 1 MG TAB PO SCH (08:25)
[2018-01-20] MEDS: LORazepam 0.5 MG TAB PO SCH (08:25)
[2018-01-20] MEDS: DULoxetine 60 MG CAP PO SCH (08:25)
[2018-01-20] MEDS: THIAMINE HCL 100 MG TAB PO SCH (08:25)
[2018-01-20] MEDS ORDERED: MBX SOLN 30 ML BOTTLE PO PRN (09:35)
--- NOTE | 2018-01-20 09:51 | HOSPPROG ---
Hospitalist Progress Note Assessment/Plan: 42-year-old man with alcoholism is admitted with abdominal pain. Has a history of chronic pancreatitis and pseudocyst, he had some biliary stricture likely from possible external compression and is status post stent placement with improvement in his LFTs. He has had intermittent abdominal pain which got worse yesterday. It has improved with NPO status, will gradually advance from clear liquids to regular diet today if he tolerates it well he can possibly go home tomorrow. Will go slowly given his recent worsening abdominal pain Saturday # Biliary stricture s/p stent * Question external compression from pseudocyst versus scarring from chronic pancreatitis * Status post stent placement here follow up with Dr. Adler in 10 weeks for removal * has f/u appt 02/04 * LFTs normalizing, doubt malignancy # hemorrhagic pancreatic pseudocyst, acute on chronic pancreatitis * Alcohol cessation * Repeat imaging as outpatient * Recurrent pain over the last 2 days, improving now that he is NPO * Slowly advance diet today, if he tolerates pain on oral medicines he can be discharged tomorrow * Pancreatic enzymes # alcohol withdrawal, patient passed withdrawal on his chronic benzo dose for his anxiety # bipolar disease/anxiety/PTSD * Chronic benzodiazepines continue same dose * Outpatient follow-up # diabetes, on home meds likely insulin deficiency due to chronic pancreatitis # back pain: I suspect this is most likely related to his pancreatitis rather than acute back issue. abdominal pain: possible stent related pain could be gastritis trial gi cocktail home today > 30 minutes Subjective: still w pain. not food related Objective: Vital Signs Temp Pulse Resp BP Pulse Ox 37.1 C 75 12 162/102 H 92 01/20/18 08:00 01/20/18 08:00 01/20/18 08:00 01/20/18 08:00 01/20/18 08:00 Laboratory Results 01/20/18 04:52 01/20/18 04:52 01/19/18 01/20/18 01/21/18 05:59 05:59 05:59 Intake Total 4500 1468 Output Total 2550 1200 Balance 1950 268 PT 12.9 SEC (12.0-15.0) 01/13/18 04:18 INR 0.95 (0.83-1.16) 01/13/18 04:18 - Physical Exam Constitutional: no apparent distress, appears nourished Eyes: PERRL, anicteric sclera Ears, Nose, Mouth, Throat: moist mucous membranes, hearing normal Cardiovascular: regular rate and rhythym, no murmur, rub, or gallop Respiratory: no respiratory distress, no rales or rhonchi Gastrointestinal: normoactive bowel sounds, soft, non-tender abdomen Genitourinary: no bladder fullness, No christie in urethra Skin: warm, normal color Musculoskeletal: full muscle strength, no muscle tenderness Neurologic: AAOx3 Psychiatric: interacting appropriately, not anxious ICD10 Worksheet Patient Problems: Problems Problem Status Onset Alcohol intoxication Acute Elevated liver enzymes Acute
[2018-01-20] MEDS: METHOCARBAMOL 500 MG TAB PO SCH (10:05)
[2018-01-20] MEDS: MULTIVIT/MINERAL/FERR GLUC 15 ML UDL PO SCH (10:05)
[2018-01-20] MEDS: Empagliflozin [Jardiance] 10 MG PO SCH (11:59)
--- NOTE | 2018-01-20 12:31 | ASMTLACE ---
KRANTHIE Length of stay for Answers: 7-13 days current admission Acuity / Level of Answers: Yes Care: Did the patient have an inpatient admission? Comorbidities - select Answers: Diabetes (uncontrolled or all that apply controlled) Moderate or severe liver or renal disease Other Notes: IBS # of Emergency department Answers: 1-2 visits in the last 6 months Social determinants Answers: History of substance abuse (ETOH, street drugs, prescription drugs, etc.) Mental health diagnosis (anxiety, depression, pers onality disorders, etc.) Score: 21 Date Signed: 01/20/2018 12:30 PM Electronically Signed By:Tavia Watkins RN
--- NOTE | 2018-01-20 12:44 | ASMTCMCOM ---
CM Note CM Note Notes: Patient chart reviewed. 42 year old make with history of ETOH and IBS. Medically cleared for dc to home, Met with Mónica Mcnamara. Set up outpatient appointment with PCP as patient needs f/u medical treatment. He has an appointment for 01/30/[address] Mcdaniels at 10:15. He will receive resources in [place] for alcohol treatment, and follow up. No other needs identified at this time. CM available should other needs arise. Plan: DC to home independent. Date Signed: 01/20/2018 12:43 PM Electronically Signed By:Tavia Watkins RN
[2018-01-20] MEDS: metFORMIN HCL 500 MG TAB PO SCH (13:50)
== END 2018-01-20 14:32 | disposition home or self-care (01) | DRG 439 ==
LOC: OBSVTOIN 01-09 00:51 → EEVIPCON 01-09 00:51 → F3E 01-09 12:19 → F2N 01-11 19:32 → F1N 01-14 12:54
PROVIDERS: ADMIT Family Medicine; ATTEND Family Medicine
PROC: 0DB68ZX Excision of Stomach, Via Natural or Artificial Opening Endoscopic, Diagnostic (ICD-10-PCS; 2018-01-11)
PROC: 0DC68ZZ Extirpation of Matter from Stomach, Via Natural or Artificial Opening Endoscopic (ICD-10-PCS; principal; 2018-01-11 15:00)
PROC: 0FC98ZZ Extirpation of Matter from Common Bile Duct, Via Natural or Artificial Opening Endoscopic (ICD-10-PCS; principal; 2018-01-11 15:00)
PROC: 0DB58ZX Excision of Esophagus, Via Natural or Artificial Opening Endoscopic, Diagnostic (ICD-10-PCS; principal; 2018-01-11 15:00)
PROC: 0F798DZ Dilation of Common Bile Duct with Intraluminal Device, Via Natural or Artificial Opening Endoscopic (ICD-10-PCS; principal; 2018-01-11 15:00)
DX: K85.80 Other acute pancreatitis without necrosis or infection (principal); K86.3 Pseudocyst of pancreas; E87.2 Acidosis; E87.1 Hypo-osmolality and hyponatremia; K86.1 Other chronic pancreatitis; K70.10 Alcoholic hepatitis without ascites; D37.8 Neoplasm of uncertain behavior of other specified digestive organs; E11.9 Type 2 diabetes mellitus without complications; E86.0 Dehydration; F10.20 Alcohol dependence, uncomplicated; K58.9 Irritable bowel syndrome, unspecified; K21.9 Gastro-esophageal reflux disease without esophagitis; G89.29 Other chronic pain; I10 Essential (primary) hypertension; Z66 Do not resuscitate; Z79.84 Long term (current) use of oral hypoglycemic drugs
CPT/HCPCS: 82390-90; 86255-90; 97161-GP; 97165-GO; 97535-GO; C1874; G0472; G0480; J0360; J1100; J1170; J1815; J2060; J2270; J2405; J2550; J2704; J2780; J3010; J3475; J7512; Q9967

== ENCOUNTER 2018-02-02 20:38 | Emergency (ER) | payer BC ==
[2018-02-02] MEDS ORDERED: NS 1,000 ML IV ONE (20:51)
[2018-02-02] MEDS ORDERED: ONDANSETRON 4 MG/2 ML VIAL IVP ONE (20:51)
[2018-02-02 21:14] LABS: PLATELET COUNT 406 10^3/uL (150-400)
[2018-02-02] MEDS ORDERED: LORazepam 2 MG/ML INJ IVP ONE (21:16)
[2018-02-02] MEDS ORDERED: FOLIC ACID 1 MG TAB PO ONE (21:17)
[2018-02-02] MEDS ORDERED: THIAMINE HCL 100 MG TAB PO ONE (21:17)
[2018-02-02] MEDS ORDERED: IOPAMIDOL (ISOVUE-300) 100 ML BTL ONE (21:24)
--- NOTE | 2018-02-02 22:12 | EDPHY ---
H & P Time Seen by Provider: 02/02/18 20:56 HPI/ROS: CHIEF COMPLAINT: Abdominal pain HISTORY OF PRESENT ILLNESS: Patient is a 42-year-old male with long history of chronic pancreatitis and alcohol abuse. He was recently admitted approximately a month ago for pancreatitis and alcohol withdrawal. States since is discharged home he had been sober for some time taking a Ativan daily for alcohol cessation. Last week he started drinking heavily again addition to taking Ativan and then over the last 24 hr he stop taking Ativan as he ran out. He is continue drinking and last week has developed abdominal pain. He believes he has acute on chronic pancreatitis at this time. He denies any nausea, vomiting, fever, blood in his stool, hemoptysis. Denies hallucinations , suicidal ideation. REVIEW OF SYSTEMS: Constitutional: No fever, no chills. Eyes: No discharge. ENT: No sore throat. Cardiovascular: No chest pain, no palpitations. Respiratory: No cough, no shortness of breath. Gastrointestinal: + abdominal pain, no vomiting. Genitourinary: No hematuria. Musculoskeletal: No back pain. Skin: No rashes. Neurological: No headache. Smoking Status: Current some day smoker Physical Exam: General Appearance: Alert and no distress, anxious Eyes: Pupils equal and round no injection. Respiratory: Chest is nontender, lungs are clear to auscultation. Cardiac: regular rate and rhythm. Gastrointestinal: Abdomen is soft with mild tenderness to the epigastrium, no masses, bowel sounds normal. Musculoskeletal: Neck is supple and nontender. Extremities have full range of motion and are nontender. Skin: No rashes or lesions. Constitutional: Initial Vital Signs Temperature (C) 36.4 C 02/02/18 20:42 Heart Rate 131 H 02/02/18 20:42 Respiratory Rate 20 02/02/18 20:42 Blood Pressure 129/93 H 02/02/18 20:42 O2 Sat (%) 93 02/02/18 20:42 O2 Delivery Mode Room Air Allergies/Adverse Reactions: Calcium Channel Blocking Agents-Dih Allergy (Verified 02/02/18 20:45) swelling tongue Home Medications: Medication Instructions Recorded Phenobarb/Hyoscy/Atropine/Scop 16.2 mg PO Q6HRS 01/08/18 [Belladonna-Phenobarbital Tab] Sucralfate [Carafate 1 GM (*)] 1 gm PO ACHS 01/08/18 metFORMIN HCL [Glucophage 1000 mg] 1,000 mg PO BIDMEAL 01/08/18 Famotidine [Pepcid 20 MG (*)] 40 mg PO DAILY PRN 01/09/18 Pseudoephedrine HCl [Sudafed 30mg 30 mg PO DAILY PRN 01/09/18 (OTC)] DULoxetine [Cymbalta 60 MG (*)] 60 mg PO DAILY #60 cap 01/20/18 Empagliflozin [Jardiance] 10 mg PO DAILY #30 tablet 01/20/18 Gabapentin [Neurontin 300 MG (*)] 900 mg PO TID #270 cap 01/20/18 LORazepam [Ativan (*)] 0.25 mg PO QID #120 tab 01/20/18 Lipase 6,000/Amylase/Protease 1 cap PO TIDMEAL #90 cap 01/20/18 [Creon 6 (*)] Trifluoperazine HCl [Stelazine 1MG 1 mg PO BID #60 tab 01/20/18 (*)] Medical Decision Making - Diagnostics Imaging Results: Imaging Impressions Abdomen CT 02/02/18 21:16 Impression: 1. Pancreatitis once again suspected with inflammatory changes around the pancreas similar to the prior study. 2. Interval decrease in size of pseudocyst around the pancreatic head to body region. 3. The biliary Wallstent has become displaced slightly caudally with the more superior margin just above the pancreatic head level within the common bile duct in the inferior margin along the inferior wall of the second-third portion of the duodenum. 4. Hepatic steatosis. Findings discussed with Roosevelt Hamilton PAC at 22:54 hour, 02/02/2018. ED Course/Re-evaluation: Patient here with 2 3 days of worsening abdominal pain after starting to drink again. He has known history of chronic pancreatitis caused by his alcoholism. CT scan x-ray shows improved pancreatic inflammation and pseudocyst. Liver enzymes are mildly elevated and his T bili is normal. He does have a slightly moved biliary stent but lab show no evidence of biliary obstruction. His pain is likely due to alcoholic gastritis and chronic pancreatitis. He is tolerating p.o. And is not tachycardic and afebrile. Has no white count. Additionally terms of alcohol detox and shows no evidence of delirium tremens or altered mentation to tachycardia or diaphoresis. He was given a starter pack for Ativan which will take overnight and the fill prescription for Ativan tomorrow to aid in his alcohol cessation and detox. His appointment with his dairy products maker on the of this month while followup for further discussion of the biliary stent. Differential Diagnosis: Sepsis, dehydration, biliary obstruction, appendicitis, cholecystitis - Data Points Laboratory Results: Laboratory Results 02/02/18 21:00 02/02/18 21:00 02/02/18 02/02/18 21:00 21:00 WBC 6.83 10^3/uL 10^3/uL (3.80-9.50) RBC 5.12 10^6/uL 10^6/uL (4.40-6.38) Hgb 16.3 g/dL g/dL (13.7-17.5) Hct 46.8 % % (40.0-51.0) MCV 91.4 fL fL (81.5-99.8) MCH 31.8 pg pg (27.9-34.1) MCHC 34.8 g/dL g/dL (32.4-36.7) RDW 15.0 % % (11.5-15.2) Plt Count 406 10^3/uL H 10^3/uL (150-400) MPV 8.8 fL fL (8.7-11.7) Neut % (Auto) 49.2 % % (39.3-74.2) Lymph % (Auto) 41.7 % % (15.0-45.0) [place] % (Auto) 6.9 % % (4.5-13.0) Eos % (Auto) 0.9 % % (0.6-7.6) Baso % (Auto) 1.0 % % (0.3-1.7) Nucleat RBC Rel Count 0.0 % % (0.0-0.2) Absolute Neuts (auto) 3.36 10^3/uL 10^3/uL (1.70-6.50) Absolute Lymphs (auto) 2.85 10^3/uL 10^3/uL (1.00-3.00) Absolute Monos (auto) 0.47 10^3/uL 10^3/uL (0.30-0.80) Absolute Eos (auto) 0.06 10^3/uL 10^3/uL (0.03-0.40) Absolute Basos (auto) 0.07 10^3/uL 10^3/uL (0.02-0.10) Absolute Nucleated RBC 0.00 10^3/uL 10^3/uL (0-0.01) Immature Gran % 0.3 % % (0.0-1.1) Immature Gran # 0.02 10^3/uL 10^3/uL (0.00-0.10) Sodium 138 mEq/L mEq/L (135-145) Potassium 4.6 mEq/L mEq/L (3.3-5.0) Chloride 97 mEq/L mEq/L (97-110) Carbon Dioxide 17 mEq/l L mEq/l (22-31) Anion Gap 24 mEq/L H mEq/L (8-16) BUN 16 mg/dL mg/dL (7-23) Creatinine 0.9 mg/dL mg/dL (0.7-1.3) Estimated GFR > 60 Glucose 98 mg/dL mg/dL (70-100) Calcium 9.5 mg/dL mg/dL (8.5-10.4) Total Bilirubin 0.6 mg/dL mg/dL (0.1-1.4) Conjugated Bilirubin 0.5 mg/dL mg/dL (0.0-0.5) Unconjugated Bilirubin 0.1 mg/dL mg/dL (0.0-1.1) AST 64 IU/L H IU/L (17-59) ALT 62 IU/L IU/L (21-72) Alkaline Phosphatase 164 IU/L H IU/L (38-126) Total Protein 8.1 g/dL g/dL (6.3-8.2) Albumin 4.8 g/dL g/dL (3.5-5.0) Lipase 52 IU/L IU/L (23-300) Medications Given: Discontinued Medications Folic Acid (Folic Acid) 1 mg PO EDNOW ONE Stop: 02/02/18 21:18 Last Admin: 02/02/18 21:41 Dose: 1 mg Sodium Chloride (Ns) 1,000 mls @ 0 mls/hr IV EDNOW ONE; Wide Open PRN Reason: Protocol Stop: 02/02/18 20:52 Last Admin: 02/02/18 21:00 Dose: 1,000 mls Lorazepam (Ativan Injection) 1 mg IVP ONCE ONE Stop: 02/02/18 21:17 Last Admin: 02/02/18 21:41 Dose: 1 mg Lorazepam (Ativan 1 Mg Prepack#4) 1 btl TAKEHOME EDNOW ONE Stop: 02/02/18 23:19 Last Admin: 02/02/18 23:30 Dose: 1 btl Ondansetron HCl (Zofran) 4 mg IVP EDNOW ONE Stop: 02/02/18 20:52 Last Admin: 02/02/18 21:01 Dose: 4 mg Thiamine HCl (Vitamin B-1) 100 mg PO EDNOW ONE Stop: 02/02/18 21:18 Last Admin: 02/02/18 21:41 Dose: 100 mg Departure - Departure Disposition: Home, Routine, Self-Care Clinical Impression: Chronic pancreatitis, Alcoholism, Biliary stent migration Condition: Good Instructions: Pancreatitis (ED) Additional Instructions: Please follow up with your dairy products maker as scheduled on the . Additionally please use the Ativan you're given this evening and he had a prescription that she can fill tomorrow to Ag and alcohol cessation. Alcohol abuse is caused severe chronic pancreatitis. Return to the ER for fever, worsening pain, inability to eat. Additionally I would recommend General an outpatient alcohol withdrawal program. Referrals: NONE *PRIMARY CARE P,. [Primary Care Provider] - As per Instructions
[2018-02-02] MEDS ORDERED: LORAZEPAM 1 MG PREPACK#4 BTL TAKEHOME ONE (23:18)
[2018-02-02 23:33] VITALS: BP 138/99
== END 2018-02-02 23:32 | disposition home or self-care (01) ==
DX: K86.1 Other chronic pancreatitis (principal); F10.20 Alcohol dependence, uncomplicated; T85.520A Displacement of bile duct prosthesis, initial encounter; E86.9 Volume depletion, unspecified; F17.200 Nicotine dependence, unspecified, uncomplicated; Y82.8 Other medical devices associated with adverse incidents
CPT/HCPCS: 96374; J2060; J2405; Q9967

== ENCOUNTER 2018-02-20 13:54 | Inpatient (IN) | payer BC ==
--- NOTE | 2018-02-20 14:06 | EDPHY ---
HPI/HX/ROS/PE/MDM Narrative: CHIEF COMPLAINT: Abdominal pain, nausea HISTORY OF PRESENT ILLNESS: The patient is a 42 y/o male with a history of alcohol abuse and acute pancreatitis complaining of abdominal pain and nausea. He was admitted 02/02/18 for acute pancreatitis and had a stent placed in his bile duct. On Saturday, he began drinking alcohol again. On Saturday, his girlfriend reports he fell several times and developed numerous bruises on his face, head, and back. Last night, he drank heavily with his girlfriend. Today he developed abdominal pain and nausea, consistent with his previous acute pancreatitis. He denies vomiting or any other associated symptoms. He reports he does not take marijuana or any illicit drugs. He smokes occasionally. He denies taking bipolar medications while he drinks. No fever, chills, chest pain, shortness of breath, palpitations, vomiting, diarrhea, urinary complaints, headache, lightheadedness. REVIEW OF SYSTEMS: Aside from elements discussed in the HPI, a comprehensive 10-point review of systems was reviewed and is negative. PAST MEDICAL HISTORY: Alcohol abuse, acute pancreatitis 5 times, bipolar disorder SOCIAL HISTORY: From [place], employed, alcohol abuse VITAL SIGNS: Reviewed by me GENERAL: Well-developed, well-nourished, resting comfortably in no respiratory distress. Tremulous. Obvious facial trauma. HEENT: 3cm hematoma with ecchymosis on left side of forehead. Tenderness in left scalp. Eyes: Ecchymosis around left eye and right medial eye. No bony step -offs. No icterus, no injection. Mouth: dry mucous membranes. No erythema or lesions. Neck: supple with no adenopathy. Nontender to palpation. Left Ear: Ecchymosis around left ear LUNGS: Clear to auscultation bilaterally, no wheezes, rhonchi or rales. CARDIAC: Tachycardic regular rhythm, no rubs, murmurs or gallops. ABDOMEN: Guarding throughout. Soft, nondistended. Epigastric tenderness. No fluid wave. BACK: No CVA tenderness. EXTREMITIES: No trauma. No edema. Range of motion is normal throughout. NEURO: Alert and oriented, grossly nonfocal. SKIN: Warm and dry, no rash. PSYCHIATRIC: Normal mentation, no agitation. ED Course: X-ray: Chest x-ray was obtained. I viewed the images myself on the PACS system. My interpretation of the images is: normal chest. The radiologist interpretation is normal chest. I discussed the x-ray findings with the patient. CT: Head CT was obtained. I viewed the images myself on the PACS system. My interpretation of the images is: normal head. The radiologist interpretation is negative for acute findings. I discussed the x-ray findings with the patient. CT: Abdominal CT was obtained. I viewed the images myself on the PACS system. The radiologist interpretation is acute pancreatitis. I discussed the x-ray findings with the patient. The patient presents with abdominal pain and nausea, consistent with previous acute pancreatitis. He reports his enzymes no longer rise due to prior pancreatic scarring. On exam, he has guarding throughout his abdomen. He is tachycardic, tremulous, and had dry mucus membranes. Further he has rather concerning ecchymosis from several falls while intoxicated. Plan for head CT, abdominal CT, chest x-ray, CBC, basic metabolic panel, liver enzymes, coagulation panel, and lipase. 4mg Zofran, 1mg Dilaudid, and 1 L NS fluids given. 3:20 PM - The head CT is negative for acute trauma per Dr. Wesley. Abdominal CT pending. 4:00 PM - The abdominal CT indicates significant inflammation of the pancreas, pancreatic cyst is larger than on previous studies. Discussed findings with the patient. He reports feeling like he is in alcohol withdrawal and he does seems more tremors. He received a L of normal saline. 2 mg of Ativan was administered. Patient's pain has been controlled with Dilaudid. Patient has elevated liver function tests, PT and INR9 [place] [address]. Course discussed with Dr. Chow who will be the admitting physician. MDM: After obtaining the patient's history and performing an examination, differential diagnosis considered included but was not limited to appendicitis, cholecystitis, gastritis, pancreatitis, pancreatic abscess, urinary tract infections and other causes. - Data Points Imaging Results: Imaging Impressions Abdomen CT 02/20/18 14:15 Impression: 1. Worsening of pancreatic and peripancreatic inflammation consistent with pancreatitis, with increased size of a pseudocyst in the pancreatic head and neck. 2. New pancreatic ductal dilatation secondary to the inflammation and pancreatic pseudocyst. 3. Stable positioning of a distal common bile duct stent. 4. Fatty liver. 5. Additional findings as above. Findings discussed with Ursula Cassidy MD 02/20/2018 at 15:46. Chest X-Ray 02/20/18 14:15 Impression: Normal chest. Head CT 02/20/18 14:16 Impression: 1. No significant intracranial abnormality seen. 2. Soft tissue contusion over the left frontal bone. If symptoms worsen, additional imaging may be necessary. Findings discussed with Ursula Cassidy MD at 15:13 hour, 02/20/2018. Imaging: Discussed imaging studies w/ link machine operator Radiologist, I viewed and interpreted images myself Laboratory Results: Laboratory Results 02/20/18 14:00 02/20/18 14:00 02/20/18 02/20/18 02/20/18 14:15 14:00 14:00 WBC RBC Hgb Hct MCV MCH MCHC RDW Plt Count MPV Neut % (Auto) Lymph % (Auto) [place] % (Auto) Eos % (Auto) Baso % (Auto) Nucleat RBC Rel Count Absolute Neuts (auto) Absolute Lymphs (auto) Absolute Monos (auto) Absolute Eos (auto) Absolute Basos (auto) Absolute Nucleated RBC Immature Gran % Immature Gran # PT 13.1 SEC SEC (12.0-15.0) INR 0.97 (0.83-1.16) APTT 31.1 SEC SEC (23.0-38.0) VBG Lactic Acid 1.2 mmol/L mmol/L (0.7-2.1) Sodium 138 mEq/L mEq/L (135-145) Potassium 4.1 mEq/L mEq/L (3.3-5.0) Chloride 94 mEq/L L mEq/L (97-110) Carbon Dioxide 23 mEq/l mEq/l (22-31) Anion Gap 21 mEq/L H mEq/L (8-16) BUN 9 mg/dL mg/dL (7-23) Creatinine 0.8 mg/dL mg/dL (0.7-1.3) Estimated GFR > 60 Glucose 185 mg/dL H mg/dL (70-100) Calcium 9.5 mg/dL mg/dL (8.5-10.4) Total Bilirubin 0.9 mg/dL mg/dL (0.1-1.4) Conjugated Bilirubin 0.4 mg/dL mg/dL (0.0-0.5) Unconjugated Bilirubin 0.5 mg/dL mg/dL (0.0-1.1) AST 116 IU/L H IU/L (17-59) ALT 136 IU/L H IU/L (21-72) Alkaline Phosphatase 166 IU/L H IU/L (38-126) Total Protein 7.8 g/dL g/dL (6.3-8.2) Albumin 4.7 g/dL g/dL (3.5-5.0) Lipase 79 IU/L IU/L (23-300) 02/20/18 14:00 WBC 14.00 10^3/uL H 10^3/uL (3.80-9.50) RBC 4.58 10^6/uL 10^6/uL (4.40-6.38) Hgb 14.6 g/dL g/dL (13.7-17.5) Hct 42.4 % % (40.0-51.0) MCV 92.6 fL fL (81.5-99.8) MCH 31.9 pg pg (27.9-34.1) MCHC 34.4 g/dL g/dL (32.4-36.7) RDW 15.3 % H % (11.5-15.2) Plt Count 232 10^3/uL 10^3/uL (150-400) MPV 9.2 fL fL (8.7-11.7) Neut % (Auto) 79.4 % H % (39.3-74.2) Lymph % (Auto) 11.8 % L % (15.0-45.0) [place] % (Auto) 8.0 % % (4.5-13.0) Eos % (Auto) 0.1 % L % (0.6-7.6) Baso % (Auto) 0.3 % % (0.3-1.7) Nucleat RBC Rel Count 0.0 % % (0.0-0.2) Absolute Neuts (auto) 11.11 10^3/uL H 10^3/uL (1.70-6.50) Absolute Lymphs (auto) 1.65 10^3/uL 10^3/uL (1.00-3.00) Absolute Monos (auto) 1.12 10^3/uL H 10^3/uL (0.30-0.80) Absolute Eos (auto) 0.02 10^3/uL L 10^3/uL (0.03-0.40) Absolute Basos (auto) 0.04 10^3/uL 10^3/uL (0.02-0.10) Absolute Nucleated RBC 0.00 10^3/uL 10^3/uL (0-0.01) Immature Gran % 0.4 % % (0.0-1.1) Immature Gran # 0.06 10^3/uL 10^3/uL (0.00-0.10) PT INR APTT VBG Lactic Acid Sodium Potassium Chloride Carbon Dioxide Anion Gap BUN Creatinine Estimated GFR Glucose Calcium Total Bilirubin Conjugated Bilirubin Unconjugated Bilirubin AST ALT Alkaline Phosphatase Total Protein Albumin Lipase Medications Given: Discontinued Medications Hydromorphone HCl (Dilaudid) 1 mg IVP EDNOW ONE Stop: 02/20/18 14:16 Last Admin: 02/20/18 14:34 Dose: 1 mg Hydromorphone HCl (Dilaudid) 1 mg IVP EDNOW ONE Stop: 02/20/18 16:04 Last Admin: 02/20/18 16:18 Dose: 1 mg Sodium Chloride (Ns) 1,000 mls @ 0 mls/hr IV EDNOW ONE; Wide Open PRN Reason: Protocol Stop: 02/20/18 14:16 Last Admin: 02/20/18 14:36 Dose: 1,000 mls Sodium Chloride (Ns) 1,000 mls @ 0 mls/hr IV ONCE ONE; Wide Open PRN Reason: Protocol Stop: 02/20/18 16:04 Last Admin: 02/20/18 16:17 Dose: 1,000 mls Lorazepam (Ativan Injection) 2 mg IVP EDNOW ONE Stop: 02/20/18 16:04 Last Admin: 02/20/18 16:18 Dose: 2 mg Ondansetron HCl (Zofran) 4 mg IVP EDNOW ONE Stop: 02/20/18 14:40 Last Admin: 02/20/18 14:39 Dose: 4 mg General Time Seen by Provider: 02/20/18 13:56 Initial Vital Signs: Initial Vital Signs Temperature (C) 36.9 C 02/20/18 14:06 Heart Rate 115 H 02/20/18 14:06 Respiratory Rate 20 02/20/18 14:06 Blood Pressure 139/89 H 02/20/18 14:06 O2 Sat (%) 98 02/20/18 14:06 O2 Delivery Mode Room Air Allergies/Adverse Reactions: Calcium Channel Blocking Agents-Dih Allergy (Verified 02/02/18 20:45) swelling tongue Home Medications: Medication Instructions Recorded Empagliflozin [Jardiance] 10 mg PO DAILY 02/20/18 Famotidine [Pepcid 20 MG (*)] 20 mg PO DAILY 02/20/18 Gabapentin [Neurontin 300 MG (*)] 300 mg PO TID 02/20/18 LORazepam [Ativan (*)] 0.5 mg PO QID 02/20/18 Lipase 6,000/Amylase/Protease 1 each PO TID 02/20/18 [Creon 6 (*)] Metformin 1000 mg 1,000 mg PO BID 02/20/18 Ondansetron HCl 4 mg PO Q8H PRN 02/20/18 Phenobarb/Hyoscy/Atropine/Scop 16.2 mg PO DAILY PRN 02/20/18 [Belladonna-Phenobarbital Tab] Pseudoephedrine HCl [Sudafed] 30 mg PO QID PRN 02/20/18 Sucralfate [Carafate] 1 gm PO QID 02/20/18 Trifluoperazine HCl [Stelazine 1MG 1 mg PO BID 02/20/18 (*)] Departure - Departure Disposition: [facility] Inpatient Acute Clinical Impression: Acute pancreatitis Qualifiers: Pancreatitis type: alcohol induced Acute pancreatitis complication: unspecified Qualified Code(s): K85.20 - Alcohol induced acute pancreatitis without necrosis or infection Abdominal pain Qualifiers: Abdominal location: epigastric Qualified Code(s): R10.13 - Epigastric pain Condition: Fair Report Scribed for: Ursula Cassidy Report Scribed by: Laura Mancuso Date of Report: 02/20/18 Time of Report: 15:15 Physician Review and Approval Statement: Portions of this note were transcribed by a medical scientist. I personally performed a history, physical exam, medical decision making, and confirmed accuracy of information the transcribed note.
[2018-02-20] MEDS ORDERED: NS 1,000 ML IV ONE ×2 (14:15→16:03)
[2018-02-20] MEDS ORDERED: HYDROmorphONE/DILAUDID 2 MG/ML INJ IVP ONE ×2 (14:15→16:03)
[2018-02-20 14:24] LABS: PLATELET COUNT 232 10^3/uL (150-400)
[2018-02-20 14:31] LABS: INR 0.97 (0.83-1.16); PROTIME(PATIENT) 13.1 SEC (12.0-15.0)
[2018-02-20] MEDS ORDERED: ONDANSETRON 4 MG/2 ML VIAL ONE (14:37)
[2018-02-20] MEDS ORDERED: ONDANSETRON 4 MG/2 ML VIAL IVP ONE (14:39)
[2018-02-20] MEDS ORDERED: IOPAMIDOL (ISOVUE-300) 100 ML BTL ONE (14:49)
--- NOTE | 2018-02-20 15:30 | ASMTCMCOM ---
CM Note CM Note Notes: Patient presents to the ER with concerns of ETOH related pancreatitis. He has a long history of alcoholism and has been to 2 different treatment programs/rehab in [facility] recently. He has had up to 7 months of sobriety since that time and would like to follow up with detox once he is medically cleared. He is not intoxicated at this time and tells me that his last drink was last night about 2200. Patient is aware of the process for detox admission at [facility] and is considering calling for an intake assessment. We discussed other detox and rehab options as well and I have contacted [facility] [place] ([facility]) to confirm that patient can call anytime for an intake assessment and plan for admission. Patient is insured with BCBS and is aware of his options. CM is available to assist as needed. patient is awre that he will need to call facilities directly to schedule an intake Date Signed: 02/20/2018 03:30 PM Electronically Signed By:Jessy Abebe RN
[2018-02-20] MEDS ORDERED: LORazepam 2 MG/ML INJ IVP ONE (16:03)
--- NOTE | 2018-02-20 16:12 | ASMTLACE ---
MAKI Acuity / Level of Answers: Yes Care: Did the patient have an inpatient admission? Comorbidities - select Answers: Moderate or severe liver all that apply or renal disease # of Emergency department Answers: 1-2 visits in the last 6 months Social determinants Answers: History of substance abuse (ETOH, street drugs, prescription drugs, etc.) Score: 11 Date Signed: 02/20/2018 04:11 PM Electronically Signed By:Jessy Abebe RN
[2018-02-20] MEDS ORDERED: HYDROmorphONE/DILAUDID 2 MG/ML INJ ONE (16:13)
--- NOTE | 2018-02-20 16:17 | ASMTCMCOM ---
CM Note CM Note Notes: Follow up CM note re detox/rehab at [facility]. Patient has BCBS insurance and [facility] WILL be in network with [facility] as of February 26, 2018, should patient choose this option. Intake at [facility] is Date Signed: 02/20/2018 04:16 PM Electronically Signed By:Jessy Abebe RN
[2018-02-20] MEDS ORDERED: PROMETHAZINE HCL 25 MG/ML INJ IVP PRN (16:44)
[2018-02-20] MEDS ORDERED: ACETAMINOPHEN 500 MG TAB PO PRN (16:44)
[2018-02-20] MEDS ORDERED: ONDANSETRON 4 MG/2 ML VIAL IVP PRN (16:44)
[2018-02-20] MEDS ORDERED: FLUMAZENIL 0.5 MG/5 ML MDV IVP PRN (16:46)
[2018-02-20] MEDS ORDERED: D50W 25 GM/50 ML VIAL IVP PRN (16:46)
[2018-02-20] MEDS: NS 1,000 ML IV SCH (17:28)
--- NOTE | 2018-02-20 17:34 | GHP ---
[f rep st] HISTORY AND PHYSICAL DATE OF ADMISSION: 02/20/2018 CHIEF COMPLAINT: Pancreatitis. HISTORY OF PRESENT ILLNESS: This is a 42-year-old man, with a history of pancreatitis, who presents with abdominal pain. He was admitted from January 09 to January 20 for pancreatitis and alcohol withdrawal . He had markedly elevated hepatic enzymes; he had a biliary stent placed in his main bile duct; had been treated for alcohol withdrawal and pancreatitis. After discharge, he says that he was sober fo r a short amount of time, then began drinking again. For the past few weeks, he has been drinking ap proximately 1 L of vodka and a bottle of red wine every day. He drinks all day. His last drink was 10 p.m. last night. He feels as though he is beginning to go into alcohol withdrawal. He also descr ibes severe epigastric pain; does not really radiate to his back; feels exactly like his previous epi sodes of pancreatitis. He has not had any vomiting. PAST MEDICAL/SURGICAL HISTORY: 1. Alcohol abuse and withdrawal. 2. History of pancreatitis due to alcohol. 3. Recent biliary stent placement. 4. GI issues, which led to his alcoholism. He describes getting a parasite in [place], had a signif icant GI evaluation. He found that the only way to settle his intestines were to drink. 5. Diabetes. 6. He describes that he fell multiple times yesterday. He was quite intoxicated and vaguely remembe rs it. He is not sure exactly why he fell. He did hit his face. MEDICATIONS: Please see medication reconciliation. ALLERGIES: Calcium channel blockers. FAMILY HISTORY: Irritable bowel syndrome. His father had kidney cancer. SOCIAL HISTORY: Drinks as per HPI. REVIEW OF SYSTEMS: A 10-point review of systems is conducted and is negative except per HPI. PHYSICAL EXAM: VITAL SIGNS: Blood pressure 142/98, heart rate 85, respiration rate 18, saturating 9 6% on 2 L. Temperature is 36.9. GENERAL: The patient is a pleasant man who appears somewhat distre ssed. He is tremulous. HEENT: Exam shows him to have multiple ecchymoses around both eyes. CARDIO VASCULAR: Regular rate and rhythm. No murmurs, rubs, or gallops. PULMONARY: Lungs clear to auscul tation bilaterally. SKIN: Shows no rash, petechiae. : Exam shows no Arzate. NEUROLOGIC: Exam s hows him to be alert and oriented x3. ABDOMINAL: Exam shows him to be soft. He is mildly tender to palpation. He is mildly tender to palpation in the epigastrium although he has received a significa nt amount of Dilaudid. He has no guarding or rebound tenderness. PSYCHIATRIC: Exam shows him to be depressed. LAB DATA: White count is 14,000; this is 79% neutrophils. INR 0.9. Lactate is 1.2. Basic metaboli c panel is relatively unremarkable. AST is 116, ALT is 136, alkaline phosphatase 166. IMAGIN. Head CT shows nothing acute intracranially, no fractures. 2. Chest x-ray, which I personally reviewed and interpreted, shows normal heart size. There is noth ing acute. 3. Abdomen CT shows worsening peripancreatic inflammation with increase in size of his pseudocyst, w ith new pancreatic ductal dilation, stable positioning of the common bile duct stent, fatty liver. I discussed with Dr. Cassidy. Will admit to Med/Surg. IMPRESSION AND PLAN: 1. Acute pancreatitis: Certainly due to alcohol. He does have some pancreatic duct dilation due to inflammation of pseudocyst. We will treat him conservatively for now. If this does not improve, wo uld consult Gastroenterology for the possibility of a pancreatic duct stent, though this is difficult in acute pancreatitis. 2. Alcohol abuse and withdrawal: We will place him on Clinical [place] Withdrawal Assessment, giv e him thiamine. He wants to quit drinking. He understands its ill effects on his health. 3. Leukocytosis: I am not finding any clear infection. This may be stress response. Will recheck this tomorrow with hydration and better control of his pain. If it continues to be elevated would wo rkup further. 4. Elevated liver function tests: These are significantly down from his prior. It is a mixed pictu re, with obstructive and hepatocellular picture. This was attributed before to his bile duct strictu re. He now has a stent in place. It appears that the stent is functioning. We will recheck these t omorrow. 5. Pancreatic pseudocyst: It is slightly bigger. I do not think it needs to be emergently drained. Would follow this. 6. Bipolar disease, anxiety, posttraumatic stress disorder: We will continue his chronic medication s. 7. Diabetes: This is likely a type 1 due to pancreatic islet cell destruction. Will provide him lo w-dose insulin as needed. /[id number]/MODL
[2018-02-20] MEDS: THIAMINE HCL 500 MG in NS 100 ML IV SCH (17:56)
[2018-02-20] MEDS: IBUPROFEN 200 MG TAB PO PRN ×2 (17:56→23:49)
[2018-02-20] MEDS: INSULIN LISPRO 100 UNIT/ML SC SCH (17:57)
[2018-02-20] MEDS: LORazepam 2 MG/ML INJ IVP PRN ×2 (19:49→23:49)
[2018-02-20] MEDS: oxyCODONE IR 5 MG TAB PO PRN (22:15)
[2018-02-21] MEDS: oxyCODONE IR 5 MG TAB PO PRN (01:28)
[2018-02-21] MEDS: NS 1,000 ML IV SCH ×3 (02:17→23:30)
[2018-02-21] MEDS: ONDANSETRON DISINTEGRATING 4 MG TAB PO PRN (02:19)
[2018-02-21] MEDS: LORazepam 2 MG/ML INJ IVP PRN ×4 (04:11→20:08)
--- NOTE | 2018-02-21 04:12 | HOSPPROG ---
Hospitalist Progress Note Assessment/Plan: XC: Patient febrile to 38.4; CT notable for enlarged pseudocyst, which may be infected. No mention of necrosis on CT read. I will start Ceftriaxone and Flagyl for empiric intraabdominal coverage(broaden to Ertapenem if worsening) and also obtain blood cultures. Would consult GI in the morning for further consideration. Objective: Vital Signs Temp Pulse Resp BP Pulse Ox 38.4 C H 105 H 18 147/99 H 94 02/21/18 03:54 02/21/18 03:54 02/21/18 03:54 02/21/18 03:54 02/21/18 03:54 02/19/18 02/20/18 02/21/18 05:59 05:59 05:59 Intake Total 1999 Balance 1999 PT 13.1 SEC (12.0-15.0) 02/20/18 14:00 INR 0.97 (0.83-1.16) 02/20/18 14:00 ICD10 Worksheet Patient Problems: Problems Problem Status Onset Acute pancreatitis Acute Alcohol intoxication Acute Elevated liver enzymes Acute
[2018-02-21 05:46] LABS: PLATELET COUNT 167 10^3/uL (150-400)
[2018-02-21] MEDS: SUCRALFATE 1 GM TAB PO SCH ×4 (06:10→20:09)
[2018-02-21] MEDS: ENOXAPARIN 40 MG/0.4 ML SYR SC SCH (07:26)
[2018-02-21] MEDS: GABAPENTIN 300 MG CAP PO SCH ×3 (07:27→20:09)
[2018-02-21] MEDS: HYDROmorphONE/DILAUDID 1 MG/ML INJ IVP PRN ×2 (07:27→17:27)
[2018-02-21] MEDS: INSULIN LISPRO 100 UNIT/ML SC SCH ×3 (07:53→18:44)
[2018-02-21] MEDS: LIPASE 6,000/AMYLASE/PROTEASE (CREON) 1 CAP PO SCH ×3 (08:03→20:09)
[2018-02-21] MEDS ORDERED: FAMOTIDINE 20 MG TAB PO SCH (09:00)
[2018-02-21] MEDS: THIAMINE HCL 500 MG in NS 100 ML IV SCH (09:13)
[2018-02-21] MEDS: TRIFLUOPERAZINE HCL 2 MG TAB PO SCH ×2 (09:14→20:09)
--- NOTE | 2018-02-21 09:21 | PDMN ---
Medical Necessity Medical necessity: Pt meets inpt criteria per MD order and MCG M-250, Pancreatitis, 2 days. Pt admitted w/abd and severe epigastric pain associated w/ pancreatitis r/t alcohol. Abd CT shows pancreatic duct dilation sec to inflammation and enlarged pseudocyst and worsening peripancreatic inflammation, GI consult pending, fever 101 over night, hx of recent hospitalization (December 2017) for pancreatitis and alcohol WD , ethyl alcohol lv this admission 48, CIWA protocall, IVF/thiamine, IV ABX's, IV and oral pain meds. Anticipate>2MN for ongoing med nec eval and treatment.
--- NOTE | 2018-02-21 11:15 | ASMTCMCOM ---
CM Note CM Note Notes: Pt begun on antibiotics early this morning for possibly infected enlarged pseudocyst. 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 Last admission had no CM needs upon D/C. CM to follow. D/C Plan: TBD Date Signed: 02/21/2018 11:15 AM Electronically Signed By:Yaneth Erickson
[2018-02-21] MEDS: DULoxetine 60 MG CAP PO SCH (15:00)
--- NOTE | 2018-02-21 16:42 | HOSPPROG ---
Hospitalist Progress Note Assessment/Plan: * Etoh withdrawal -IV ativan per CIWA * Pancreatic pseudocyst -d/w Dr. Mullins - raghav infected - DC abx and monitor -no intervention while actively drinking -consider repeat gastrocystostomy as outpatient with Dr. Adler once off Etoh * CBD obstruction due to external compression from pancreatic inflammation -CBD stent looks good, LFT normalized -stent removal 10 weeks post insertion * Acute on chronic Etoh pancreatitis -advance diet - clears -pancreatic enzymes * SIRS - suspect due to pancreatitis * Forehead hematoma -superficial only by CT -d/w Dr. Ortiz plastic surgery - no indication for intervention, loss of overlying skin rare -patient given instructions for outpatient f/u plastics * DM II -hold meds until increased PO * Bipolar/anxiety/PTSD Subjective: Hungry, disappointed in self that he started drinking again Girlfriend also replapsed and she is at [facility] Objective: Vital Signs Temp Pulse Resp BP Pulse Ox 37.4 C 95 16 137/96 H 99 02/21/18 15:29 02/21/18 15:29 02/21/18 15:29 02/21/18 15:29 02/21/18 15:29 Laboratory Results 02/21/18 04:26 02/21/18 04:26 02/20/18 02/21/18 02/22/18 05:59 05:59 05:59 Intake Total 1999 1500 Balance 1999 1500 PT 13.1 SEC (12.0-15.0) 02/20/18 14:00 INR 0.97 (0.83-1.16) 02/20/18 14:00 d/w DR. Mullins - raghav infected pseudocyst - DC abx CT abd - pseudocyst bigger IV dilaudid for pain - Physical Exam Constitutional: no apparent distress, appears nourished, not in pain Cardiovascular: regular rate and rhythym, no murmur, rub, or gallop Respiratory: no respiratory distress, no rales or rhonchi, clear to auscultation Gastrointestinal: normoactive bowel sounds, soft, non-tender abdomen, no palpable masses Skin: no rashes or abrasions, no fluctuance, no induration Neurologic: AAOx3, sensation intact bilaterally Psychiatric: interacting appropriately, not anxious, not encephalopathic, thought process linear ICD10 Worksheet Patient Problems: Problems Problem Status Onset Acute pancreatitis Acute Alcohol intoxication Acute Elevated liver enzymes Acute
[2018-02-21] MEDS: IBUPROFEN 200 MG TAB PO PRN (17:27)
[2018-02-21] MEDS: FAMOTIDINE 20 MG TAB PO SCH (20:09)
[2018-02-22] MEDS: HYDROmorphONE/DILAUDID 1 MG/ML INJ IVP PRN ×6 (01:23→21:55)
[2018-02-22] MEDS: IBUPROFEN 200 MG TAB PO PRN ×3 (03:47→18:23)
[2018-02-22] MEDS: SUCRALFATE 1 GM TAB PO SCH ×4 (05:42→20:40)
[2018-02-22] MEDS: ENOXAPARIN 40 MG/0.4 ML SYR SC SCH (07:38)
[2018-02-22] MEDS: GABAPENTIN 300 MG CAP PO SCH ×3 (07:38→21:55)
[2018-02-22] MEDS: NS 1,000 ML IV SCH (07:38)
[2018-02-22] MEDS: TRIFLUOPERAZINE HCL 2 MG TAB PO SCH ×2 (07:39→20:39)
[2018-02-22] MEDS: FAMOTIDINE 20 MG TAB PO SCH ×2 (07:39→20:39)
[2018-02-22] MEDS: LORazepam 2 MG/ML INJ IVP PRN ×4 (07:39→20:41)
[2018-02-22] MEDS: DULoxetine 60 MG CAP PO SCH (07:39)
[2018-02-22] MEDS: LIPASE 6,000/AMYLASE/PROTEASE (CREON) 1 CAP PO SCH ×3 (07:39→20:38)
[2018-02-22] MEDS: INSULIN LISPRO 100 UNIT/ML SC SCH ×3 (09:07→18:13)
[2018-02-22] MEDS: THIAMINE HCL 500 MG in NS 100 ML IV SCH (10:11)
[2018-02-22] MEDS: PSEUDOEPHEDRINE HCL 30 MG TAB PO PRN (10:26)
--- NOTE | 2018-02-22 13:47 | HOSPPROG ---
Hospitalist Progress Note Assessment/Plan: * Etoh withdrawal -IV ativan per CIWA - got a lot yesterday but says he won't need that much today * Pancreatic pseudocyst -off anx. keep watching -no intervention while actively drinking -consider repeat gastrocystostomy as outpatient with Dr. Adler once off Etoh * CBD obstruction due to external compression from pancreatic inflammation -CBD stent looks good, LFT normalized -stent removal 10 weeks post insertion * Acute on chronic Etoh pancreatitis -continue clears today. advance when tolerated -pancreatic enzymes * SIRS - suspect due to pancreatitis * Forehead hematoma -superficial only by CT -d/w Dr. Ortiz plastic surgery - no indication for intervention, loss of overlying skin rare -patient given instructions for outpatient f/u plastics * DM II -hold meds until increased PO * Bipolar/anxiety/PTSD Subjective: was having pain with clear liquids. concerned about hematoma forehead Objective: Vital Signs Temp Pulse Resp BP Pulse Ox 36.5 C 79 16 154/104 H 96 02/22/18 11:32 02/22/18 11:32 02/22/18 11:32 02/22/18 11:32 02/22/18 11:32 Laboratory Results 02/21/18 04:26 02/21/18 04:26 02/21/18 02/22/18 02/23/18 05:59 05:59 05:59 Intake Total 1999 3675 Balance 1999 3675 PT 13.1 SEC (12.0-15.0) 02/20/18 14:00 INR 0.97 (0.83-1.16) 02/20/18 14:00 - Physical Exam Constitutional: no apparent distress, appears nourished, not in pain Eyes: other (bruising below eyes) Ears, Nose, Mouth, Throat: other (large hematoma left forehead) Gastrointestinal: normoactive bowel sounds, soft, non-tender abdomen, no palpable masses Skin: warm Neurologic: AAOx3 Psychiatric: interacting appropriately, not anxious, not encephalopathic, thought process linear ICD10 Worksheet Patient Problems: Problems Problem Status Onset Acute pancreatitis Acute Alcohol intoxication Acute Elevated liver enzymes Acute
[2018-02-23] MEDS: LORazepam 2 MG/ML INJ IVP PRN ×2 (00:04→08:27)
[2018-02-23] MEDS: IBUPROFEN 200 MG TAB PO PRN ×3 (00:10→20:08)
[2018-02-23] MEDS: HYDROmorphONE/DILAUDID 1 MG/ML INJ IVP PRN ×3 (04:52→17:43)
[2018-02-23] MEDS: SUCRALFATE 1 GM TAB PO SCH ×4 (05:38→21:08)
[2018-02-23] MEDS: ENOXAPARIN 40 MG/0.4 ML SYR SC SCH (08:06)
[2018-02-23] MEDS: TRIFLUOPERAZINE HCL 2 MG TAB PO SCH ×2 (08:07→21:07)
[2018-02-23] MEDS: DULoxetine 60 MG CAP PO SCH (08:09)
[2018-02-23] MEDS: GABAPENTIN 300 MG CAP PO SCH ×3 (08:09→21:08)
[2018-02-23] MEDS: FAMOTIDINE 20 MG TAB PO SCH ×2 (08:10→20:08)
[2018-02-23] MEDS: THIAMINE HCL 100 MG TAB PO SCH (08:10)
[2018-02-23] MEDS: LIPASE 6,000/AMYLASE/PROTEASE (CREON) 1 CAP PO SCH ×3 (08:10→21:08)
[2018-02-23] MEDS: INSULIN LISPRO 100 UNIT/ML SC SCH ×3 (08:32→17:43)
[2018-02-23] MEDS: OPIUM/BELLADONNA ALKALO SUPP PR PRN (10:25)
[2018-02-23] MEDS: DOCUSATE SODIUM 100 MG CAP PO SCH ×2 (10:26→21:08)
[2018-02-23] MEDS: PSEUDOEPHEDRINE HCL 30 MG TAB PO PRN (10:26)
--- NOTE | 2018-02-23 10:46 | HOSPPROG ---
Hospitalist Progress Note Assessment/Plan: * Etoh withdrawal -IV ativan per CIWA -trying lower dose ativan. didn't do well with librium in the past * Pancreatic pseudocyst -off anx. keep watching -no intervention while actively drinking -consider repeat gastrocystostomy as outpatient with Dr. Adler once off Etoh * CBD obstruction due to external compression from pancreatic inflammation -CBD stent looks good, LFT normalized -stent removal 10 weeks post insertion * Acute on chronic Etoh pancreatitis -will try advancing. told patient to eat simple carbs today - low fat -pancreatic enzymes * SIRS - suspect due to pancreatitis * Forehead hematoma -superficial only by CT -d/w Dr. Ortiz plastic surgery - no indication for intervention, loss of overlying skin rare -patient given instructions for outpatient f/u plastics * DM II -cont metformin -check hga1c * Bipolar/anxiety/PTSD Subjective: wants to try advancing diet. some pain with clears Objective: Vital Signs Temp Pulse Resp BP Pulse Ox 36.8 C 83 16 164/106 H 96 02/23/18 07:39 02/23/18 07:39 02/23/18 07:39 02/23/18 07:39 02/23/18 07:39 Laboratory Results 02/21/18 04:26 02/23/18 04:25 02/22/18 02/23/18 02/24/18 05:59 05:59 05:59 Intake Total 3675 500 Balance 3675 500 PT 13.1 SEC (12.0-15.0) 02/20/18 14:00 INR 0.97 (0.83-1.16) 02/20/18 14:00 - Physical Exam Constitutional: no apparent distress, appears nourished, not in pain Eyes: anicteric sclera, EOMI Ears, Nose, Mouth, Throat: other (hematoma forehead is improving) Gastrointestinal: normoactive bowel sounds, soft, non-tender abdomen, no palpable masses Skin: warm Neurologic: AAOx3 Psychiatric: interacting appropriately, not anxious, not encephalopathic, thought process linear ICD10 Worksheet Patient Problems: Problems Problem Status Onset Abdominal pain Acute Acute pancreatitis Acute Alcohol intoxication Acute Elevated liver enzymes Acute
[2018-02-23] MEDS: LORazepam 2 MG/ML INJ IV PRN ×3 (13:35→20:08)
[2018-02-23] MEDS: ONDANSETRON DISINTEGRATING 4 MG TAB PO PRN (13:44)
[2018-02-23] MEDS: NS 1,000 ML IV SCH (21:32)
[2018-02-24] MEDS: SUCRALFATE 1 GM TAB PO SCH ×4 (05:42→21:47)
[2018-02-24 05:49] LABS: PLATELET COUNT 219 10^3/uL (150-400)
[2018-02-24] MEDS: HYDROmorphONE/DILAUDID 1 MG/ML INJ IVP PRN ×4 (06:42→21:15)
[2018-02-24] MEDS: LORazepam 2 MG/ML INJ IV PRN ×4 (07:23→22:53)
[2018-02-24] MEDS: GABAPENTIN 300 MG CAP PO SCH ×3 (07:35→21:48)
[2018-02-24] MEDS: INSULIN LISPRO 100 UNIT/ML SC SCH ×3 (07:35→18:48)
[2018-02-24] MEDS: FAMOTIDINE 20 MG TAB PO SCH ×2 (07:36→21:47)
[2018-02-24] MEDS: TRIFLUOPERAZINE HCL 2 MG TAB PO SCH ×2 (07:36→21:47)
[2018-02-24] MEDS: DULoxetine 60 MG CAP PO SCH (07:37)
[2018-02-24] MEDS: THIAMINE HCL 100 MG TAB PO SCH (07:37)
[2018-02-24] MEDS: DOCUSATE SODIUM 100 MG CAP PO SCH ×2 (07:37→21:48)
[2018-02-24] MEDS: LIPASE 6,000/AMYLASE/PROTEASE (CREON) 1 CAP PO SCH ×3 (07:37→21:48)
[2018-02-24] MEDS: ENOXAPARIN 40 MG/0.4 ML SYR SC SCH (07:38)
--- NOTE | 2018-02-24 10:58 | ASMTCMCOM ---
CM Note CM Note Notes: CM spoke to Dr. Jacques regarding d/c POC. PT has cleared pt to go home without any needs. Pt will follow up w/ [facility], a substance abuse program on 02/26. Pt is awaiting to be medically stable to d/c. No other needs identified at this time. CM available for changes. Plan: Independent Date Signed: 02/24/2018 10:51 AM Electronically Signed By:DYLAN Gagnon
[2018-02-24] MEDS: IBUPROFEN 200 MG TAB PO PRN ×2 (11:34→21:47)
[2018-02-24] MEDS: PSEUDOEPHEDRINE HCL 30 MG TAB PO PRN (16:52)
[2018-02-24] MEDS: OPIUM/BELLADONNA ALKALO SUPP PR PRN (16:52)
--- NOTE | 2018-02-24 19:00 | HOSPPROG ---
Hospitalist Progress Note Assessment/Plan: Assessment: 42-year-old male presents with acute alcohol induced pancreatitis complicated by acute alcohol withdrawal Plan: * Etoh withdrawal. Evidenced by tremulousness, anxiety, elevated BP -clinically unresolved, ongoing tremulousness, anxiety, SBP 160s -cont IV/PO ativan and CIWA -patient has a residential alcohol detox program beginning on February 26 * Acute alcohol induced pancreatitis and Pancreatic pseudocyst. Central abd pain + elevated lipase -failed PO trial on 02/23, de-escalated diet to clear liq today -increase IVF to 150/hr -cont PRN pain Rx -cont off Abx and monitor WBC -consider repeat gastrocystostomy as outpatient with Dr. Adler once off Etoh * CBD obstruction due to external compression from pancreatic inflammation -CBD stent looks good, LFTs improving, repeat as outpt -stent removal 10 weeks post insertion * SIRS - suspect due to pancreatitis * Forehead hematoma - superficial only by CT -counseled patient regarding head imaging -counseled him to f/u w/ Dr. Ortiz as outpt -counseled him to cont applying ice and cool compress to reduce swelling * DM II - cont metformin * Bipolar/anxiety/PTSD w/ continuous benzodiazepine dependency - cont home Rx including home dosage of ativan 2mg HS Diet. De-escalated to clear liquids Prophylaxis. Low risk, SCDs Code. Full Disposition. Anticipated discharge is 02/26, pending clinical improvement of above Objective: Vital Signs Temp Pulse Resp BP Pulse Ox 37.1 C 67 12 163/112 H 96 02/24/18 16:00 02/24/18 16:00 02/24/18 16:00 02/24/18 16:00 02/24/18 16:00 Laboratory Results 02/24/18 04:23 02/24/18 04:23 02/23/18 02/24/18 02/25/18 05:59 05:59 05:59 Intake Total 500 1100 900 Balance 500 1100 900 PT 13.1 SEC (12.0-15.0) 02/20/18 14:00 INR 0.97 (0.83-1.16) 02/20/18 14:00 - Time Spent With Patient Time Spent with Patient: greater than 35 minutes Time Spent with Patient: Greater than 35 minutes spent on this patients care, greater than 50% of time spent counseling, educating, and coordinating care regarding the above mentioned plan. - Physical Exam Constitutional: no apparent distress, uncomfortable, unkempt, No not in pain ( Mild) Eyes: other (Bilateral ecchymoses) Cardiovascular: regular rate and rhythym, no murmur, rub, or gallop, No edema Respiratory: no respiratory distress, no rales or rhonchi, clear to auscultation Gastrointestinal: normoactive bowel sounds, tenderness (Midepigastric area), distension (Mild particularly in the mid epigastric area) Skin: other (Nontender, mildly fluctuant hematoma left anterior scalp with overlying ecchymoses) Neurologic: AAOx3, other (Bilateral upper extremity tremulousness), No asterixes Psychiatric: anxious, other (Pressured speech), No agitated ICD10 Worksheet Patient Problems: Problems Problem Status Onset Alcohol intoxication Acute Elevated liver enzymes Acute Acute pancreatitis Acute Abdominal pain Acute
[2018-02-25] MEDS: NS 1,000 ML IV SCH ×4 (02:41→23:09)
[2018-02-25] MEDS: SUCRALFATE 1 GM TAB PO SCH ×4 (05:44→20:31)
[2018-02-25] MEDS: HYDROmorphONE/DILAUDID 1 MG/ML INJ IVP PRN ×2 (06:08→10:36)
[2018-02-25] MEDS: LORazepam 2 MG/ML INJ IV PRN ×2 (06:21→22:54)
[2018-02-25] MEDS: GABAPENTIN 300 MG CAP PO SCH ×3 (08:20→21:24)
[2018-02-25] MEDS: DULoxetine 60 MG CAP PO SCH (08:21)
[2018-02-25] MEDS: TRIFLUOPERAZINE HCL 2 MG TAB PO SCH ×2 (08:21→20:30)
[2018-02-25] MEDS: DOCUSATE SODIUM 100 MG CAP PO SCH ×2 (08:21→20:31)
[2018-02-25] MEDS: THIAMINE HCL 100 MG TAB PO SCH (08:22)
[2018-02-25] MEDS: INSULIN LISPRO 100 UNIT/ML SC SCH ×4 (08:22→21:27)
[2018-02-25] MEDS: FAMOTIDINE 20 MG TAB PO SCH ×2 (08:22→20:31)
[2018-02-25] MEDS: LIPASE 6,000/AMYLASE/PROTEASE (CREON) 1 CAP PO SCH ×3 (08:22→21:24)
[2018-02-25] MEDS: ENOXAPARIN 40 MG/0.4 ML SYR SC SCH (08:23)
[2018-02-25] MEDS: LISINOPRIL 5 MG TAB PO SCH (08:35)
[2018-02-25] MEDS: OPIUM/BELLADONNA ALKALO SUPP PR PRN ×4 (08:42→21:28)
[2018-02-25] MEDS: LORazepam 0.5 MG TAB PO PRN ×2 (08:47→15:17)
[2018-02-25] MEDS ORDERED: HYDROmorphONE/DILAUDID 1 MG/ML INJ IVP PRN (10:50)
[2018-02-25] MEDS: HYDROmorphONE/DILAUDID 2 MG TAB PO PRN ×2 (14:17→20:30)
--- NOTE | 2018-02-25 16:43 | HOSPPROG ---
Hospitalist Progress Note Assessment/Plan: Assessment: 42-year-old male presents with acute alcohol induced pancreatitis complicated by acute alcohol withdrawal Plan: * Etoh withdrawal. Evidenced by tremulousness, anxiety, elevated BP -clinically unresolved, ongoing tremulousness, anxiety, SBP 160s -cont IV/PO ativan and CIWA -patient has a residential alcohol detox program beginning on February 26, if stable to DC from a pancreatitis standpoint * Acute alcohol induced pancreatitis and Pancreatic pseudocyst. Central abd pain + elevated lipase -failed PO trial on 02/23, de-escalated diet to clear liq -increased IVF to 150/hr -adjusted PO pain Rx to dilaudid -cont off Abx and monitor WBC -consider repeat gastrocystostomy as outpatient with Dr. Adler once off Etoh -counseled patient that we can either advance PO diet + PO pain Rx and gauge effect vs. de-escalate entirely to sips/chips/IV pain Rx, and patient has elected to advance and see if able to tolerate * CBD obstruction due to external compression from pancreatic inflammation -CBD stent looks good, LFTs improving, repeat as outpt -stent removal 10 weeks post insertion * SIRS - suspect due to pancreatitis * Forehead hematoma - superficial only by CT -f/u w/ Dr. Ortiz as outpt -cont applying ice and cool compress to reduce swelling * DM II - cont metformin * Bipolar/anxiety/PTSD w/ continuous benzodiazepine dependency - cont home Rx including home dosage of ativan 2mg HS Diet. Low fat w/ IVF Prophylaxis. Mod risk, lovenox 40 Code. Full Disposition. Anticipated discharge is 02/26, pending clinical improvement of above Subjective: patient remains anxious about elevated BP, anxious about PO intake Objective: Vital Signs Temp Pulse Resp BP Pulse Ox 36.6 C 53 L 16 171/98 H 96 02/25/18 16:00 02/25/18 16:00 02/25/18 16:00 02/25/18 16:00 02/25/18 16:00 Laboratory Results 02/25/18 04:30 02/25/18 04:30 02/24/18 02/25/18 02/26/18 05:59 05:59 05:59 Intake Total 1100 900 500 Output Total 900 Balance 1100 900 -400 PT 13.1 SEC (12.0-15.0) 02/20/18 14:00 INR 0.97 (0.83-1.16) 02/20/18 14:00 - Time Spent With Patient Time Spent with Patient: greater than 35 minutes Time Spent with Patient: Greater than 35 minutes spent on this patients care, greater than 50% of time spent counseling, educating, and coordinating care regarding the above mentioned plan. - Pending Discharge Pending Discharge Within 24 Hours: Yes Pending Discharge Date: 02/26/18 Pending Discharge Time: 11:00 - Physical Exam Constitutional: not in pain, uncomfortable Cardiovascular: regular rate and rhythym, no murmur, rub, or gallop, No edema Respiratory: no respiratory distress, no rales or rhonchi, clear to auscultation Gastrointestinal: tenderness (mid-epigastric area) Neurologic: AAOx3, other (mildly tremulous) Psychiatric: not encephalopathic, thought process linear, anxious, No agitated ICD10 Worksheet Patient Problems: Problems Problem Status Onset Alcohol intoxication Acute Elevated liver enzymes Acute Acute pancreatitis Acute Abdominal pain Acute
[2018-02-25] MEDS: TETRAHYDROZOLINE 0.05% 15 ML OPHT.BTL EACHEYE PRN (21:25)
[2018-02-26] MEDS: HYDROmorphONE/DILAUDID 2 MG TAB PO PRN ×4 (01:45→17:35)
[2018-02-26] MEDS: NS 1,000 ML IV SCH (06:01)
[2018-02-26] MEDS: SUCRALFATE 1 GM TAB PO SCH ×4 (06:32→20:19)
[2018-02-26] MEDS: PSEUDOEPHEDRINE HCL 30 MG TAB PO PRN (06:32)
[2018-02-26] MEDS: INSULIN LISPRO 100 UNIT/ML SC SCH ×4 (06:33→21:44)
[2018-02-26] MEDS: DULoxetine 60 MG CAP PO SCH (09:08)
[2018-02-26] MEDS: TRIFLUOPERAZINE HCL 2 MG TAB PO SCH ×2 (09:08→20:19)
[2018-02-26] MEDS: LISINOPRIL 5 MG TAB PO SCH (09:10)
[2018-02-26] MEDS: DOCUSATE SODIUM 100 MG CAP PO SCH ×2 (09:10→20:19)
[2018-02-26] MEDS: LIPASE 6,000/AMYLASE/PROTEASE (CREON) 1 CAP PO SCH ×3 (09:11→21:40)
[2018-02-26] MEDS: GABAPENTIN 300 MG CAP PO SCH ×3 (09:11→21:40)
[2018-02-26] MEDS: FAMOTIDINE 20 MG TAB PO SCH ×2 (09:11→20:19)
[2018-02-26] MEDS: THIAMINE HCL 100 MG TAB PO SCH (09:11)
[2018-02-26] MEDS: ENOXAPARIN 40 MG/0.4 ML SYR SC SCH (09:11)
[2018-02-26] MEDS: TETRAHYDROZOLINE 0.05% 15 ML OPHT.BTL EACHEYE PRN (09:17)
[2018-02-26] MEDS: IBUPROFEN 200 MG TAB PO PRN (09:24)
[2018-02-26] MEDS: LORazepam 0.5 MG TAB PO PRN ×4 (09:24→21:42)
[2018-02-26] MEDS ORDERED: INSULIN LISPRO 100 UNIT/ML SC SCH (12:00)
--- NOTE | 2018-02-26 18:32 | HOSPPROG ---
Hospitalist Progress Note Assessment/Plan: Assessment: 42-year-old male presents with acute alcohol induced pancreatitis complicated by acute alcohol withdrawal Plan: * Etoh withdrawal. Evidenced by tremulousness, anxiety, elevated BP -clinically unresolved, ongoing tremulousness, anxiety, SBP 160s -cont IV/PO ativan and CIWA -patient reports he will go to a detox program, but does not seem to have as firm of plans as we were originally led to believe * Acute alcohol induced pancreatitis and Pancreatic pseudocyst. Central abd pain + elevated lipase -successful trial w/ PO solids -stop IVF -adjusted PO pain Rx to dilaudid -cont off Abx and monitor WBC -consider repeat gastrocystostomy as outpatient with Dr. Adler once off Etoh -patent requesting belladonna for his IBS (chronic med) to use in addition to dilaudid, so that he can control both the pancreatitis and IBS, and gauge whether pain is manageable as outpatient -counseled him that I will provide him w/ Rx, his friend can fill and provide to our pharmacy, and we can attempt this strategy so as to ensure a safe DC * CBD obstruction due to external compression from pancreatic inflammation -CBD stent looks good, LFTs improving, repeat as outpt -stent removal 10 weeks post insertion * SIRS - suspect due to pancreatitis * Forehead hematoma - superficial only by CT -f/u w/ Dr. Ortiz as outpt -cont applying ice and cool compress to reduce swelling * DM II - cont metformin * Bipolar/anxiety/PTSD w/ continuous benzodiazepine dependency - cont home Rx including home dosage of ativan 2mg HS Diet. Low fat w/ IVF Prophylaxis. Mod risk, lovenox 40 Code. Full Disposition. Anticipated discharge is 02/27, pending clinical improvement of above Subjective: patient reports ongoing abd pain, as well as IBS sx Objective: Vital Signs Temp Pulse Resp BP Pulse Ox 36.7 C 78 16 186/116 H 96 02/26/18 15:12 02/26/18 15:12 02/26/18 15:12 02/26/18 15:12 02/26/18 15:12 Microbiology 02/21/18 04:26 Blood Culture - Final Blood 02/21/18 04:31 Blood Culture - Final Blood Laboratory Results 02/25/18 04:30 02/26/18 04:30 02/25/18 02/26/18 02/27/18 05:59 05:59 05:59 Intake Total 900 2300 Output Total 900 Balance 900 1400 PT 13.1 SEC (12.0-15.0) 02/20/18 14:00 INR 0.97 (0.83-1.16) 02/20/18 14:00 - Time Spent With Patient Time Spent with Patient: greater than 35 minutes Time Spent with Patient: Greater than 35 minutes spent on this patients care, greater than 50% of time spent counseling, educating, and coordinating care regarding the above mentioned plan. - Pending Discharge Pending Discharge Within 24 Hours: Yes Pending Discharge Date: 02/27/18 Pending Discharge Time: 11:00 - Physical Exam Constitutional: no apparent distress, uncomfortable Cardiovascular: regular rate and rhythym, no murmur, rub, or gallop, No edema Respiratory: no respiratory distress, no rales or rhonchi, clear to auscultation Gastrointestinal: normoactive bowel sounds, tenderness (mid epigastric area), No guarding, No distension Neurologic: AAOx3, other (bilat UE tremulousness), No asterixes Psychiatric: not encephalopathic, anxious, other (rapid, pressured speech, directible), No agitated ICD10 Worksheet Patient Problems: Problems Problem Status Onset Alcohol intoxication Acute Elevated liver enzymes Acute Acute pancreatitis Acute Abdominal pain Acute
[2018-02-26] MEDS: PHENOBARBITAL PO PRN (18:43)
[2018-02-26] MEDS: BELLADONNA ALKALOIDS PO PRN (18:43)
[2018-02-26] MEDS: METOPROLOL TARTRATE 50 MG TAB PO SCH (23:10)
[2018-02-27] MEDS: HYDROmorphONE/DILAUDID 2 MG TAB PO PRN ×4 (00:26→10:40)
[2018-02-27] MEDS: LORazepam 0.5 MG TAB PO PRN ×2 (04:12→09:22)
[2018-02-27] MEDS: BELLADONNA ALKALOIDS PO PRN (04:22)
[2018-02-27] MEDS: PHENOBARBITAL PO PRN (04:22)
[2018-02-27 05:47] LABS: PLATELET COUNT 427 10^3/uL (150-400)
[2018-02-27] MEDS: INSULIN LISPRO 100 UNIT/ML SC SCH ×2 (05:51→11:56)
[2018-02-27] MEDS: SUCRALFATE 1 GM TAB PO SCH ×2 (05:51→11:49)
[2018-02-27 07:41] VITALS: BP 162/117
[2018-02-27] MEDS: DOCUSATE SODIUM 100 MG CAP PO SCH (08:10)
[2018-02-27] MEDS: FAMOTIDINE 20 MG TAB PO SCH (08:10)
[2018-02-27] MEDS: LIPASE 6,000/AMYLASE/PROTEASE (CREON) 1 CAP PO SCH (08:10)
[2018-02-27] MEDS: GABAPENTIN 300 MG CAP PO SCH (08:11)
[2018-02-27] MEDS: ENOXAPARIN 40 MG/0.4 ML SYR SC SCH (08:11)
[2018-02-27] MEDS: TRIFLUOPERAZINE HCL 2 MG TAB PO SCH (08:11)
[2018-02-27] MEDS: LISINOPRIL 5 MG TAB PO SCH (08:14)
[2018-02-27] MEDS: THIAMINE HCL 100 MG TAB PO SCH (08:14)
[2018-02-27] MEDS: DULoxetine 60 MG CAP PO SCH (08:14)
[2018-02-27] MEDS: METOPROLOL TARTRATE 50 MG TAB PO SCH (08:14)
[2018-02-27] MEDS: TETRAHYDROZOLINE 0.05% 15 ML OPHT.BTL EACHEYE PRN (09:22)
[2018-02-27] MEDS: PSEUDOEPHEDRINE HCL 30 MG TAB PO PRN (09:23)
--- NOTE | 2018-02-27 10:33 | ASMTLACE ---
[facility] Length of stay for Answers: 7-13 days current admission Acuity / Level of Answers: Yes Care: Did the patient have an inpatient admission? Comorbidities - select Answers: Moderate or severe liver all that apply or renal disease # of Emergency department Answers: 1-2 visits in the last 6 months Social determinants Answers: History of substance abuse (ETOH, street drugs, prescription drugs, etc.) Score: 16 Date Signed: 02/27/2018 10:32 AM Electronically Signed By:Cande Davis
--- NOTE | 2018-02-27 16:55 | PDDCSUM ---
Discharge Summary Discharge Summary: DISCHARGE SUMMARY FOLLOW-UP ITEMS: 1. Establish outpatient mental health care 2. Outpatient plastic surgery follow-up for facial abrasion 3. Common bile duct stent removal 03/25/2018 4. Monitor outpatient liver function tests DATE OF ADMISSION: 02/20/2018 DATE OF DISCHARGE: 02/27/2018 DISCHARGE DIAGNOSES: 1. Acute alcohol induced pancreatitis with pancreatic pseudocyst 2. Acute alcohol withdrawal 3. History of common bile duct obstruction 4. Acute systemic inflammatory response syndrome 5. For hematoma 6. Chronic diabetes mellitus type 2 7. Chronic bipolar, anxiety, PTSD with continuous benzodiazepine dependency 8. 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 CONSULTATIONS: None PROCEDURES / IMAGING: Abdominal CT demonstrating new pancreatic duct dilatation and peripancreatic stranding new from previous study, stable common bile duct stent, hepatic steatosis CHIEF COMPLAINT: Acute abdominal pain SUBJECTIVE: Patient reports that the pain is well controlled with oral pain medications PHYSICAL EXAM ON DISCHARGE: Systolic blood pressure is 130-160, heart rate 60, afebrile overnight, satting well on room air, alert awake oriented x3, no apparent distress, tremulousness is significantly improved, patient is much calmer in appearance on days prior LABS ON DISCHARGE: White blood cell count 4000, hemoglobin 13, platelets [id number], AST 81, ALT 120, alk-phos 120, albumin 3.7, creatinine 0.8, potassium 5 HOSPITAL COURSE BY PROBLEM: The patient presented with recurrent alcohol-induced pancreatitis evidenced by midepigastric abdominal pain, elevated lipase level, CT imaging demonstrating new and worsening peripancreatic inflammation, most likely precipitated by recent alcohol binge. The patient has an underlying pancreatic pseudocyst which is not increased and does not appear to be infected. The patient was treated supportively with IV fluids, IV pain medications, and we held on antibiotics. The patient's diet was initially increased to light, low-fat solids, and the patient's condition worsened, requiring us to extend his hospitalization by another 48 hr so that we could deescalate his diet, place him on clears, and then advance it is very gently to a low-fat light diet. At the time of discharge, the patient is tolerating a low-fat light diet and he is preemptively a taking oral Dilaudid when he begins to take solids to prevent severe escalation of his pain. He is also taking his home belladonna 4 times a day which is his chronic treatment modality for his irritable bowel syndrome, chronic abdominal pain symptoms, and I have provided the patient with a new outpatient script for this medication as he asserts that is the only successful medication in managing his chronic symptoms. Since I suspect that there is a strong overlay between the patient's acute and his chronic symptoms, I have recommended that he only utilize a Dilaudid in the short term for the use of his acute midepigastric pain, and wean it rapidly in the outpatient setting if it is not absolutely needed. The patient's course was also complicated by acute alcohol withdrawal evidenced by tremulousness, anxiety, elevated blood pressure. He was treated aggressively with IV and oral Ativan on the [facility] protocol. The patient reports that he wants sobriety and he has resources for outpatient treatment programs. The patient's situation is complicated by bipolar disease, anxiety, PTSD with a continuous benzodiazepine dependency, the patient normally takes 0.5 mg of Ativan 4 times daily as adjuvant therapy to his other behavioral health medications. He will continue on Ativan 0.5 4 times daily in the near term, and is attempt to establish outpatient mental health here in the [facility]. The patient also sustained a traumatic fall prior to arrival, and has a significant forehead hematoma. He was superficial only, as noted on CT. We recommended applying ice, cool compress to reduce swelling in following up with Plastic surgery as an outpatient. The affected area is not a developing infection. Suspected chronic hypertension. I suspect the patient has a chronic hypertensive element, and he was started on metoprolol as well as lisinopril. He was also continued on his diabetes medications. DISCHARGE MEDICATIONS: Please see official discharge medication reconciliation sheet in chart , Ativan 0.5 mg up to 4 times daily, Dilaudid 2-4 mg as needed taper in the outpatient setting, belladonna 4 times daily as needed, metoprolol started, lisinopril started comma continue other home medications. DISCHARGE INSTRUCTIONS: Please establish primary care in the [facility] and ensure outpatient mental health follow-up. TIME SPENT: Greater than 30 minutes were spent on direct patient care, as well as discharge planning and preparation.
== END 2018-02-27 13:12 | disposition home or self-care (01) | DRG 439 ==
LOC: EDUNIT# → F3E 17:27
PROVIDERS: ADMIT Student in an Organized Health Care Education/Training Program; ATTEND Internal Medicine
DX: K85.20 Alcohol induced acute pancreatitis without necrosis or infection (principal); K86.3 Pseudocyst of pancreas; F10.230 Alcohol dependence with withdrawal, uncomplicated; F11.20 Opioid dependence, uncomplicated; K86.1 Other chronic pancreatitis; K70.0 Alcoholic fatty liver; R25.1 Tremor, unspecified; R00.0 Tachycardia, unspecified; F17.200 Nicotine dependence, unspecified, uncomplicated; S00.83XA Contusion of other part of head, initial encounter; W19.XXXA Unspecified fall, initial encounter; E11.69 Type 2 diabetes mellitus with other specified complication; F31.9 Bipolar disorder, unspecified; Y90.2 Blood alcohol level of 40-59 mg/100 ml
CPT/HCPCS: 92523-GN; 96374; 97161-GP; 97530-GP; G0480; J0696; J1170; J1650; J1815; J2060; J2405; J3411; Q9967

== ENCOUNTER 2018-03-27 16:52 | Inpatient (IN) | payer BC ==
[2018-03-27] MEDS ORDERED: NS 1,000 ML IV ONE (16:55)
--- NOTE | 2018-03-27 16:56 | EDPHY ---
H & P Time Seen by Provider: 03/27/18 16:53 HPI/ROS: CHIEF COMPLAINT: [ ] HISTORY OF PRESENT ILLNESS: [Need 4: Location, Duration, Severity, Quality, Context, Timing Modifying Factors, Associated S&S] REVIEW OF SYSTEMS: A comprehensive 10 point review of systems is otherwise negative aside from elements mentioned in the history of present illness. Source: Patient Exam Limitations: No limitations - Medical/Surgical History Hx Asthma: No Hx Chronic Respiratory Disease: No Hx Diabetes: Yes Hx Cardiac Disease: No Hx Renal Disease: No Hx Cirrhosis: No Hx Alcoholism: Yes Hx HIV/AIDS: No Hx Splenectomy or Spleen Trauma: No Other PMH: DM II, MYRON, PANCREATITIS, STENT FROM ENDOSCOPY, MULTIPLE BONE FX - Social History Smoking Status: Current some day smoker - Physical Exam Exam: General Appearance: [Alert, no distress] Eyes: [Pupils equal and round no pallor or injection] ENT, Mouth: [Mucous membranes moist] Respiratory: [There are no retractions, lungs are clear to auscultation] Cardiovascular: [Regular rate and rhythm] Gastrointestinal: [Abdomen is soft and nontender, no masses, bowel sounds normal] Neurological: [A&O, normal motor function, normal sensory exam, normal cranial nerves] Skin: [Warm and dry, no rashes] Musculoskeletal: [Neck is supple nontender] Extremities: [symmetrical, full range of motion] Psychiatric: [Patient is oriented X 3, there is no agitation] Allergies/Adverse Reactions: Calcium Channel Blocking Agents-Dih Allergy (Verified 03/15/18 20:08) swelling tongue Home Medications: Medication Instructions Recorded Empagliflozin [Jardiance] 10 mg PO DAILY 02/20/18 Gabapentin [Neurontin 300 MG (*)] 900 mg PO TID 02/20/18 Lipase 6,000/Amylase/Protease 1 cap PO TID 02/20/18 [Creon 6 (*)] Metformin 1000 mg 1,000 mg PO BID 02/20/18 Phenobarb/Hyoscy/Atropine/Scop 16.2 mg PO QID 02/20/18 [BELLADONNA-PHENOBARBITAL TAB] Pseudoephedrine HCl [Sudafed 30mg 30 mg PO QID PRN 02/20/18 (OTC)] Sucralfate [Carafate 1 GM (*)] 1 gm PO QID 02/20/18 Trifluoperazine HCl [Stelazine 1MG 1 mg PO BID 02/20/18 (*)] Famotidine [Pepcid 20 MG (*)] 20 mg PO DAILY #30 tab 02/27/18 DULoxetine [Cymbalta 60 MG (*)] 60 mg PO DAILY cap 03/21/18 LORazepam [Ativan (*)] 0.5 - 1 mg PO Q6HRS PRN #30 tab 03/21/18 traMADol [Ultram 50 mg (*)] 50 mg PO Q6HRS PRN #10 tab 03/21/18
--- NOTE | 2018-03-27 17:03 | EDPHY ---
H & P Time Seen by Provider: 03/27/18 16:53 HPI/ROS: CHIEF COMPLAINT: "I am drunk" HISTORY OF PRESENT ILLNESS: The patient is brought into the emergency department with alcohol intoxication. The patient has a history of type 2 diabetes and also has a common bile duct stent which was post to be removed 2 days ago. He reports he has been drinking heavily today. He denies abdominal pain or vomiting. The patient did not have a follow-up appointment with Gastroenterology of the [facility]. He has recent admission to the hospital for alcoholic verses diabetic ketoacidosis. He was discharged home on oral hypoglycemic agents which he reports he has not been taken. The patient denies any history of fall or trauma. Patient denies fever, cough or congestion. The patient denies fever. REVIEW OF SYSTEMS: A comprehensive 10 point review of systems is otherwise negative aside from elements mentioned in the history of present illness. Source: Patient Exam Limitations: No limitations - Medical/Surgical History Hx Asthma: No Hx Chronic Respiratory Disease: No Hx Diabetes: Yes Hx Cardiac Disease: No Hx Renal Disease: No Hx Cirrhosis: No Hx Alcoholism: Yes Hx HIV/AIDS: No Hx Splenectomy or Spleen Trauma: No Other PMH: DM II, MYRON, PANCREATITIS, STENT FROM ENDOSCOPY, MULTIPLE BONE FX - Social History Smoking Status: Current some day smoker - Physical Exam Exam: General Appearance: Disheveled, alcohol on breath, no acute distress Eyes: Pupils equal and round no pallor or injection ENT, Mouth: Mucous membranes moist Respiratory: There are no retractions, lungs are clear to auscultation Cardiovascular: Regular rate and rhythm Gastrointestinal: Abdomen is soft and nontender, no masses, bowel sounds normal Neurological: 5/5 strength all 4 extremities Skin: Warm and dry, no rashes Musculoskeletal: Neck is supple nontender Extremities: symmetrical, full range of motion Constitutional: Initial Vital Signs Temperature (C) 36.8 C 03/27/18 17:01 Heart Rate 135 H 03/27/18 17:01 Respiratory Rate 20 03/27/18 17:01 Blood Pressure 141/120 H 03/27/18 17:01 O2 Sat (%) 97 03/27/18 17:01 O2 Delivery Mode Room Air Allergies/Adverse Reactions: Calcium Channel Blocking Agents-Dih Allergy (Verified 03/15/18 20:08) swelling tongue Home Medications: Medication Instructions Recorded Empagliflozin [Jardiance] 10 mg PO DAILY 02/20/18 Gabapentin [Neurontin 300 MG (*)] 900 mg PO TID 02/20/18 Lipase 6,000/Amylase/Protease 1 cap PO TID 02/20/18 [Creon 6 (*)] Metformin 1000 mg 1,000 mg PO BID 02/20/18 Phenobarb/Hyoscy/Atropine/Scop 16.2 mg PO QID 02/20/18 [BELLADONNA-PHENOBARBITAL TAB] Pseudoephedrine HCl [Sudafed 30mg 30 mg PO QID PRN 02/20/18 (OTC)] Sucralfate [Carafate 1 GM (*)] 1 gm PO QID 02/20/18 Trifluoperazine HCl [Stelazine 1MG 1 mg PO BID 02/20/18 (*)] Famotidine [Pepcid 20 MG (*)] 20 mg PO DAILY #30 tab 02/27/18 DULoxetine [Cymbalta 60 MG (*)] 60 mg PO DAILY cap 03/21/18 LORazepam [Ativan (*)] 0.5 - 1 mg PO Q6HRS PRN #30 tab 03/21/18 traMADol [Ultram 50 mg (*)] 50 mg PO Q6HRS PRN #10 tab 03/21/18 Medical Decision Making ED Course/Re-evaluation: The patient presents to the ED with market alcohol intoxication with a alcohol level close to .500. The patient has not followed up with Gastroenterology for removal of his common bile duct stent. The patient is noted to have relatively stable liver functions without evidence of an elevated bilirubin. The patient is afebrile. He has no evidence of acute pancreatitis or acute hepatitis. Given the patient's profound alcohol intoxication he will be admitted to the hospitalist service for observation this evening. I did consult with Dr. Sanchez from Gastroenterology who has requested the patient be kept NPO this evening. He will make arrangements to remove his biliary stent tomorrow. Consultation is made with Dr. Gillian Briones from the hospitalist service. The patient is noted to have a normal venous pH in the emergency department. He does have an anion gap likely consistent with alcoholic ketoacidosis. He has no evidence of significant hyperglycemia. Differential Diagnosis: Differential diagnosis considered includes alcohol intoxication, pancreatitis, cholangitis, hepatitis, metabolic abnormality - Data Points Laboratory Results: Laboratory Results 03/27/18 17:25 18 17:25 03/27/1818 03/27/18 17:25 17:25 17:25 WBC 9.48 10^3/uL 10^3/uL (3.80-9.50) RBC 4.87 10^6/uL 10^6/uL (4.40-6.38) Hgb 15.3 g/dL g/dL (13.7-17.5) Hct 43.4 % % (40.0-51.0) MCV 89.1 fL fL (81.5-99.8) MCH 31.4 pg pg (27.9-34.1) MCHC 35.3 g/dL g/dL (32.4-36.7) RDW 13.8 % % (11.5-15.2) Plt Count 507 10^3/uL H 10^3/uL (150-400) MPV 8.3 fL L fL (8.7-11.7) Neut % (Auto) 57.8 % % (39.3-74.2) Lymph % (Auto) 28.7 % % (15.0-45.0) Boyle % (Auto) 12.1 % % (4.5-13.0) Eos % (Auto) 0.3 % L % (0.6-7.6) Baso % (Auto) 0.9 % % (0.3-1.7) Nucleat RBC Rel Count 0.0 % % (0.0-0.2) Absolute Neuts (auto) 5.47 10^3/uL 10^3/uL (1.70-6.50) Absolute Lymphs (auto) 2.72 10^3/uL 10^3/uL (1.00-3.00) Absolute Monos (auto) 1.15 10^3/uL H 10^3/uL (0.30-0.80) Absolute Eos (auto) 0.03 10^3/uL 10^3/uL (0.03-0.40) Absolute Basos (auto) 0.09 10^3/uL 10^3/uL (0.02-0.10) Absolute Nucleated RBC 0.00 10^3/uL 10^3/uL (0-0.01) Immature Gran % 0.2 % % (0.0-1.1) Immature Gran # 0.02 10^3/uL 10^3/uL (0.00-0.10) VBG pH 7.44 H (7.31-7.42) Sodium 141 mEq/L mEq/L (135-145) Potassium 4.8 mEq/L mEq/L (3.3-5.0) Chloride 99 mEq/L mEq/L (97-110) Carbon Dioxide 21 mEq/l L mEq/l (22-31) Anion Gap 21 mEq/L H mEq/L (8-16) BUN 9 mg/dL mg/dL (7-23) Creatinine 0.8 mg/dL mg/dL (0.7-1.3) Estimated GFR > 60 Glucose 208 mg/dL H mg/dL (70-100) Calcium 8.9 mg/dL mg/dL (8.5-10.4) Total Bilirubin 0.5 mg/dL mg/dL (0.1-1.4) Conjugated Bilirubin 0.3 mg/dL mg/dL (0.0-0.5) Unconjugated Bilirubin 0.2 mg/dL mg/dL (0.0-1.1) AST 67 IU/L H IU/L (17-59) ALT 103 IU/L H IU/L (21-72) Alkaline Phosphatase 194 IU/L H IU/L (38-126) Total Protein 7.7 g/dL g/dL (6.3-8.2) Albumin 4.5 g/dL g/dL (3.5-5.0) Lipase 48 IU/L IU/L (23-300) Beta-Hydroxybutyrate 0.28 mmol/L H mmol/L (0.02-0.27) Ethyl Alcohol 492 mg/dL H* mg/dL (0-10) Medications Given: Discontinued Medications Sodium Chloride (Ns) 1,000 mls @ 0 mls/hr IV EDNOW ONE; Wide Open PRN Reason: Protocol Stop: 03/27/18 16:56 Last Admin: 03/27/18 17:30 Dose: 1,000 mls Departure - Departure Disposition: [facility] Acute Clinical Impression: Alcohol intoxication, Biliary stricture, Elevated liver enzymes Condition: Fair
[2018-03-27 17:43] LABS: PLATELET COUNT 507 10^3/uL (150-400)
[2018-03-27] MEDS ORDERED: PROMETHAZINE HCL 25 MG/ML INJ IVP PRN (20:50)
[2018-03-27] MEDS ORDERED: ONDANSETRON 4 MG/2 ML VIAL IVP PRN (20:50)
[2018-03-27] MEDS ORDERED: FLUMAZENIL 0.5 MG/5 ML MDV IVP PRN (20:51)
[2018-03-27] MEDS ORDERED: D50W 25 GM/50 ML VIAL IVP PRN (20:52)
[2018-03-27] MEDS ORDERED: SUCRALFATE 1 GM TAB PO SCH (21:00)
[2018-03-27] MEDS: LORazepam 2 MG/ML INJ IVP PRN ×3 (21:24→23:59)
[2018-03-27] MEDS: GABAPENTIN 300 MG CAP PO SCH (21:25)
[2018-03-27] MEDS: METOPROLOL TARTRATE 50 MG TAB PO SCH (21:25)
[2018-03-27] MEDS: HYDROmorphONE/DILAUDID 1 MG/ML INJ IVP PRN (21:25)
--- NOTE | 2018-03-27 21:33 | GHP ---
[f rep st] HISTORY AND PHYSICAL DATE OF ADMISSION: 03/27/2018 CHIEF COMPLAINT: Abdominal pain. HISTORY: The patient is a 42-year-old male with a known history of pancreatic pseudocysts. He has extensive pancreatic inflammation, externally compressed common bile duct and had a common bile duct stent placed. He immediately starts drinking again after every hospital discharge, which has been, I think this is the 4th admission this month. He now presents again intoxicated, tearful and remorseful, as he does at each presentation, although does not seem to change behavior when he leaves. He was scheduled to have common bile duct stent removed 2 days ago and had an appointment with [facility]. He did not go to the appointment because he was intoxicated. He plans to break-up with his girlfriend and move back to [place], but he cannot leave the area until this common bile duct stent is removed. Emergency room spoke with Dr. Sanchez and plans to remove stent tomorrow morning. He is not taking any of his medications. He complains of increased abdominal pain, consistent with his usual acute on chronic pancreatitis. PAST MEDICAL HISTORY: 1. Alcoholism. 2. Chronic pancreatitis with pseudocyst. 3. Common bile duct stent due to external compression of the pancreas. 4. Bipolar and posttraumatic stress disorder. 5. IBS. MEDICATIONS: Please see computerized record for full detailed list. ALLERGIES: Calcium channel luz. SOCIAL HISTORY: No smoking. History of alcoholism, currently drinking greater than 1 handle per day of vodka. 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 He met his current girlfriend at [facility]. She moved back to [place] and he followed her. She fell off the wagon and he followed her. He admits to the codependence of their relationship. He plans to break up with her and move back to [place] where his family is. He says his girlfriend drinks more than he does. She gets up every morning at 8:00 am and goes to the [employer]. He states he cannot quit drinking as long as he is here in [place] with her, but he feels confident once he leaves [place], he will get a handle on this. REVIEW OF SYSTEMS: Complete review of systems obtained. Review of systems negative regarding constitutional, HEENT, GI, pulmonary, vascular, , hematologic, endocrine, psych except for positives as in HPI. FAMILY HISTORY: Reviewed, noncontributory to presenting complaint. PHYSICAL EXAMINATION: GENERAL: A well-developed, well-nourished male, in no acute no acute distress. He is emotionally. He is excitable. He is remorseful. VITAL SIGNS: Temp is 36.8, pulse 135, blood pressure 141/120, satting 97% on room air. EYES: Normal conjunctivae. Pupils react to light. ENT: Normal ears and nose. Hearing intact. Normal teeth. Oropharynx moist. NECK: Trachea midline. No thyromegaly. CHEST: Normal. LUNGS: Clear to auscultation bilaterally. CARDIOVASCULAR: Regular rate and rhythm. No murmur. No extremity edema. ABDOMEN: Soft, nontender. No hepatosplenomegaly. SKIN: Warm, dry and intact. No rash. MUSCULOSKELETAL: No cyanosis or clubbing. Strength is 5/5 in upper and lower extremities. NEURO : Cranial nerves are intact. Normal sensation to light touch. PSYCH: Alert and oriented x3. Emotional affect. Despite intoxication, he holds a relatively coherent conversation. Normal memory. He remembers me and all of our previous conversations very well. LABORATORY DATA: White count 9.4, hematocrit 43.4, platelets 507. Sodium 141, potassium 4.8, chloride 99, bicarb 21, BUN 9, creatinine 0.8, glucose 208. LFTs are negative. Alcohol level is 492. AST 67, ALT is 103. This case was personally discussed with Dr. Gelacio Rousseau, emergency room physician , regarding plan to admit for common bile duct stent removal tomorrow morning. ASSESSMENT AND PLAN: 1. Acute on chronic pancreatitis. His lipase is normal, but he no longer has enough pancreas cells in order to mount any type of lipase response. His abdominal pain is increased consistent with his usual pancreatitis. We will make him n.p.o. and pain control with IV Dilaudid, although rapidly deescalate narcotics after his procedure 2. Common bile duct stent, overdue for removal. Gastroenterology has been consulted. Plan to remove stent tomorrow morning. I will make him n.p.o. after midnight. 3. Pancreatic pseudocysts. These have been drained previously in [place]. Gastroenterology does not want to drain them here while he is actively drinking alcohol, but drainage of pseudocysts is a possibility and should be done once he successfully quits. 4. Chronic alcohol dependence. We will place him on a CIWA protocol with IV Ativan as needed. 5. Diabetes type 1 versus type 2. He may now be type 1 due to burnt-out nature of his pancreas. He did present with diabetic ketoacidosis last admission. Initial discussion was to discharge him on insulin, but in the end, he discharged back on his oral agent. We will follow fingerstick blood glucoses , hydrate with IV fluids, watch his anion gap. It is borderline high on presentation at 21, but I suspect there is a contribution of alcohol ketoacidosis and starvation ketoacidosis. 6. Bipolar and posttraumatic stress disorder. I think these are significant issues for him. CODE STATUS: Full. ADMISSION STATUS: 1. We will admit to observation. Reevaluate tomorrow regarding ongoing need for hospitalization 2. DVT prophylaxis: He is low risk. /[id number]/MODL STEPHANE
[2018-03-27] MEDS: NS 1,000 ML IV SCH (21:34)
[2018-03-27] MEDS: THIAMINE HCL 500 MG in NS 100 ML IV SCH (21:34)
[2018-03-27] MEDS: TRIFLUOPERAZINE HCL 1 MG TAB PO SCH (22:32)
[2018-03-27] MEDS: ATROPINE PO SCH (22:44)
[2018-03-27] MEDS: HYOSCY PO SCH (22:44)
[2018-03-27] MEDS: PHENOBARB PO SCH (22:44)
[2018-03-27] MEDS: SCOP PO SCH (22:44)
[2018-03-28] MEDS: INSULIN REGULAR HUMAN 100 UNIT/ML UNIT SC SCH ×5 (00:13→21:29)
[2018-03-28] MEDS: HYDROmorphONE/DILAUDID 1 MG/ML INJ IVP PRN ×4 (01:09→16:13)
[2018-03-28] MEDS: LORazepam 2 MG/ML INJ IVP PRN ×6 (04:24→21:43)
[2018-03-28 05:16] LABS: INR 1.05 (0.83-1.16); PROTIME(PATIENT) 13.9 SEC (12.0-15.0)
[2018-03-28] MEDS: PHENOBARB PO SCH ×4 (05:32→21:27)
[2018-03-28] MEDS: SCOP PO SCH ×4 (05:32→21:27)
[2018-03-28] MEDS: HYOSCY PO SCH ×4 (05:32→21:27)
[2018-03-28] MEDS: ATROPINE PO SCH ×4 (05:32→21:27)
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
[2018-03-28] MEDS: LIPASE 6,000/AMYLASE/PROTEASE (CREON) 1 CAP PO SCH ×3 (08:39→16:14)
[2018-03-28] MEDS: GABAPENTIN 300 MG CAP PO SCH ×3 (08:39→21:28)
[2018-03-28] MEDS: METOPROLOL TARTRATE 50 MG TAB PO SCH ×2 (08:39→21:29)
[2018-03-28] MEDS: TRIFLUOPERAZINE HCL 1 MG TAB PO SCH ×2 (08:39→21:31)
[2018-03-28] MEDS: FAMOTIDINE 20 MG TAB PO SCH (08:39)
[2018-03-28] MEDS: DULoxetine 60 MG CAP PO SCH (08:40)
[2018-03-28] MEDS: Empagliflozin [Jardiance] 10 MG PO SCH (08:40)
[2018-03-28] MEDS: LISINOPRIL 5 MG TAB PO SCH (08:40)
[2018-03-28] MEDS: THIAMINE HCL 500 MG in NS 100 ML IV SCH (08:41)
--- NOTE | 2018-03-28 10:23 | HOSPPROG ---
Hospitalist Progress Note Assessment/Plan: [facility] Patient Name: CARL SARAH Rpt#: [id number] Unit Number: [id number] Attending/ER Physician: Gillian Briones MD Patient Type: ADM Monique Adm Date/Source: 03/27/18 EMR Discharge Date: Primary Carrier: BC OUT OF STATE PPO Patient is a 42 y/o male w hx of pancreatic pseudocysts. He has extensive pancreatic inflammation, externally compressed CBD and CBD stent placed. He presented to the ER with c/o abdominal pain. This is his 4th admission since December. He continues to drink and was intoxicated on admission w a BAL of 492 * Acute on chronic pancreatitis -lipase is normal -pain is consistent w pancreatitis -cont supportive care w IV hydration and IV Dilaudid -needs to be rapidly deescalate the narcotics *CBD stent -GI to see for removal *chronic alcohol dependence -CIWA -patient is frequently requesting nursing staff to do his CIWA protocol. I spoke with him that this is not appropriate *pancreatic pseudocysts -have been drained i the past in [place] -GI doesn't want to drain while actively drinking *Diabetes type 1 vs 2 -has been on oral agents *bipolar and PTSD -impacting the above *plan: reviewed his care w Dr Sanchez, his recommendation is to get Carl through the withdrawals prior to removal of the stent (he will require too much sedation for a planned procedure), I spoke w Carl and he'd like to go through withdrawals in a controlled environment. He also has s/sx of pancreatitis. Subjective: Carl is requesting ice chips and more frequent doses of diluadid. Objective: Vital Signs Temp Pulse Resp BP Pulse Ox 37.8 C 128 H 16 126/91 H 94 03/28/18 08:00 03/28/18 08:39 03/28/18 08:00 03/28/18 08:40 03/28/18 08:00 Laboratory Results 03/28/18 04:56 03/27/18 03/28/18 03/29/18 05:59 05:59 05:59 Intake Total 3000 Balance 3000 PT 13.9 SEC (12.0-15.0) 03/28/18 04:56 INR 1.05 (0.83-1.16) 03/28/18 04:56 - Physical Exam Constitutional: appears nourished, uncomfortable Eyes: PERRL Ears, Nose, Mouth, Throat: hearing normal Cardiovascular: regular rate and rhythym Respiratory: no respiratory distress Gastrointestinal: normoactive bowel sounds, soft, non-tender abdomen (patient did not have pain w gentle palp in all 4 quadrants and epigastric area) Skin: warm Musculoskeletal: full muscle strength Neurologic: AAOx3 Psychiatric: not encephalopathic ICD10 Worksheet Patient Problems: Problems Problem Status Onset Alcohol intoxication Acute Biliary stricture Acute Elevated liver enzymes Acute Abdominal pain Acute Acute pancreatitis Acute Alcoholic intoxication without complication Acute DKA, type 2 Acute Hypomagnesemia Acute
--- NOTE | 2018-03-28 11:26 | ASMTCMCOM ---
CM Note CM Note Notes: CM met with Pt re d/c planning. Pt agitated, worried about missing phone and wallet, inferred that the paramedics are thieves. Content of speech not always logical, "Maybe her father called for them to bring me here because he wants us to break-up...I needed to come here because of acute pancreatitis, but didn't make call". Pt may still have alcohol in his system and has been taking benzodiazepans due to withdrawal. He was staying with his GF in a home paid for by her family and does not know whether he can return. He thinks they might have sent her to rehab. CM contacted security and inquired re phone, awaiting return call. Once Pt is sober and lucid he may need assistance in transitioning back into community. CM will follow for D/C needs. D/C Plan: TBD Date Signed: 03/28/2018 11:25 AM Electronically Signed By:Yaneth Erickson
--- NOTE | 2018-03-28 16:08 | PDMN ---
Medical Necessity Medical necessity: Change to inpt as of 03/28/18 @ 14:12. Pt meets inpt criteria per MD order and MCG M-250, Pancreatitis. Est LOS>2MN for management of acute on chronic pancreatitis w/increased abd pain, extensive pancreatic inflammation , externally compressed CBD w/stent, overdue for removal- GI consult, intoxicated upon admission w/BAL of 492. Hx of pancreatic pseudocysts, chronic alcohol dependence, Diabetes type 1 vs 2, recent hosp admission for diabetic ketoacidosis, 3 other hospital admissions since December 2017. Cl liq diet, IVF, IV Thiamine, IV Ativan for alcohol WD (7 doses since 21:24 last night 03/27)- CIWA Protocol, IV Dialudid for pain, IV Zofran for N/V, tachycardia- HR82- 135, fairly consistently >100, med nec ongoing monitoring/treatment.
[2018-03-28] MEDS ORDERED: HYDROmorphONE/DILAUDID 1 MG/ML INJ IVP ONE (23:44)
[2018-03-29] MEDS: NS 1,000 ML IV SCH (04:01)
[2018-03-29] MEDS: PHENOBARB PO SCH ×4 (04:22→21:05)
[2018-03-29] MEDS: ATROPINE PO SCH ×4 (04:22→21:05)
[2018-03-29] MEDS: SCOP PO SCH ×4 (04:22→21:05)
[2018-03-29] MEDS: HYOSCY PO SCH ×4 (04:22→21:05)
[2018-03-29] MEDS: LORazepam 2 MG/ML INJ IVP PRN (05:59)
[2018-03-29] MEDS: traMADol 50 MG TAB PO PRN ×3 (07:49→21:26)
[2018-03-29] MEDS: TRIFLUOPERAZINE HCL 1 MG TAB PO SCH ×2 (07:50→21:09)
[2018-03-29] MEDS: LIPASE 6,000/AMYLASE/PROTEASE (CREON) 1 CAP PO SCH ×3 (07:50→17:49)
[2018-03-29] MEDS: DULoxetine 60 MG CAP PO SCH (07:50)
[2018-03-29] MEDS: LISINOPRIL 5 MG TAB PO SCH (07:50)
[2018-03-29] MEDS: GABAPENTIN 300 MG CAP PO SCH ×3 (07:50→21:10)
[2018-03-29] MEDS: METOPROLOL TARTRATE 50 MG TAB PO SCH ×2 (07:51→21:10)
[2018-03-29] MEDS: FAMOTIDINE 20 MG TAB PO SCH (07:51)
[2018-03-29] MEDS: Empagliflozin [Jardiance] 10 MG PO SCH (07:51)
[2018-03-29] MEDS: THIAMINE HCL 500 MG in NS 100 ML IV SCH (08:25)
[2018-03-29] MEDS: INSULIN REGULAR HUMAN 100 UNIT/ML UNIT SC SCH ×4 (08:31→21:10)
--- NOTE | 2018-03-29 11:20 | HOSPPROG ---
Hospitalist Progress Note Assessment/Plan: [facility] Patient Name: CARL SARAH Rpt#: [id number] Unit Number: [id number] Attending/ER Physician: Gillian Briones MD Patient Type: ADM Monique Adm Date/Source: 03/27/18 EMR Discharge Date: Primary Carrier: BC OUT OF STATE PPO Patient is a 42 y/o male w hx of pancreatic pseudocysts. He has extensive pancreatic inflammation, externally compressed CBD and CBD stent placed. He presented to the ER with c/o abdominal pain. This is his 4th admission since December. He continues to drink and was intoxicated on admission w a BAL of 492 * Acute on chronic pancreatitis -lipase is normal -pain is consistent w pancreatitis -overall is better, says he has pain, but suspect he may have chronic pain *CBD stent -spoke w Dr Hinds, he needs an ERCP to remove the stent (she does not do this procedure) -spoke w Carl about this and recommended he make an appt and f/u in the OP setting, he is in agreement w this *chronic alcohol dependence -not in significant withdrawal during my interview *pancreatic pseudocysts -have been drained i the past in [place] -GI doesn't want to drain while actively drinking *Diabetes type 1 vs 2 -has been on oral agents *bipolar and PTSD -impacting the above *plan: Matheus is going to try and eat, has ongoing pain, but not requiring IV narcotics. Will see how he is this afternoon and see if he is stable for dc. Subjective: Matheus said pain is ongoing. Objective: Vital Signs Temp Pulse Resp BP Pulse Ox 37.3 C 86 16 126/102 H 94 03/29/18 08:00 03/29/18 08:00 03/29/18 08:00 03/29/18 08:00 03/29/18 08:00 Laboratory Results 03/28/18 04:56 03/28/18 03/29/18 03/30/18 05:59 05:59 05:59 Intake Total 3000 3220 Output Total 2150 Balance 3000 1070 PT 13.9 SEC (12.0-15.0) 03/28/18 04:56 INR 1.05 (0.83-1.16) 03/28/18 04:56 - Physical Exam Constitutional: uncomfortable Eyes: PERRL Ears, Nose, Mouth, Throat: hearing normal Respiratory: no respiratory distress Skin: warm Musculoskeletal: full muscle strength Neurologic: AAOx3 Psychiatric: interacting appropriately, anxious ICD10 Worksheet Patient Problems: Problems Problem Status Onset Alcohol intoxication Acute Biliary stricture Acute Elevated liver enzymes Acute Abdominal pain Acute Acute pancreatitis Acute Alcoholic intoxication without complication Acute DKA, type 2 Acute Hypomagnesemia Acute
[2018-03-29] MEDS: LORazepam 1 MG TAB PO PRN ×2 (17:54→23:44)
[2018-03-30] MEDS: HYOSCY PO SCH (04:57)
[2018-03-30] MEDS: SCOP PO SCH (04:57)
[2018-03-30] MEDS: PHENOBARB PO SCH (04:57)
[2018-03-30] MEDS: ATROPINE PO SCH (04:57)
[2018-03-30] MEDS: traMADol 50 MG TAB PO PRN (05:51)
[2018-03-30] MEDS: LORazepam 1 MG TAB PO PRN (05:53)
[2018-03-30 08:26] VITALS: BP 154/104
[2018-03-30] MEDS: DULoxetine 60 MG CAP PO SCH (08:37)
[2018-03-30] MEDS: GABAPENTIN 300 MG CAP PO SCH (08:38)
[2018-03-30] MEDS: LISINOPRIL 5 MG TAB PO SCH (08:38)
[2018-03-30] MEDS: FAMOTIDINE 20 MG TAB PO SCH (08:38)
[2018-03-30] MEDS: METOPROLOL TARTRATE 50 MG TAB PO SCH (08:38)
[2018-03-30] MEDS: TRIFLUOPERAZINE HCL 1 MG TAB PO SCH (08:38)
[2018-03-30] MEDS: LIPASE 6,000/AMYLASE/PROTEASE (CREON) 1 CAP PO SCH (08:38)
[2018-03-30] MEDS: Empagliflozin [Jardiance] 10 MG PO SCH (08:41)
[2018-03-30] MEDS: INSULIN REGULAR HUMAN 100 UNIT/ML UNIT SC SCH (08:44)
[2018-03-30] MEDS ORDERED: THIAMINE HCL 100 MG TAB PO SCH (09:00)
--- NOTE | 2018-03-30 09:54 | HOSPPROG ---
Hospitalist Progress Note Assessment/Plan: [facility] Patient Name: CARL SARAH Rpt#: [id number] Unit Number: [id number] Attending/ER Physician: Gillian Briones MD Patient Type: ADM Monique Adm Date/Source: 03/27/18 EMR Discharge Date: Primary Carrier: BC OUT OF STATE PPO Patient is a 42 y/o male w hx of pancreatic pseudocysts. He has extensive pancreatic inflammation, externally compressed CBD and CBD stent placed. He presented to the ER with c/o abdominal pain. This is his 4th admission since December. He continues to drink and was intoxicated on admission w a BAL of 492 * Acute on chronic pancreatitis -lipase is normal -eating and drinking well *CBD stent -spoke w Dr Hinds, he needs an ERCP to remove the stent (she does not do this procedure) -spoke w Carl about this and recommended he make an appt and f/u in the OP setting, he is in agreement w this *chronic alcohol dependence -not in significant withdrawal during my interview *pancreatic pseudocysts -have been drained i the past in [place] -GI doesn't want to drain while actively drinking *Diabetes type 1 vs 2 -has been on oral agents *bipolar and PTSD -impacting the above *plan: dc home w close f/u with GI Subjective: Carl said he is feeling fine and would like to be dc today. Objective: Vital Signs Temp Pulse Resp BP Pulse Ox 36.8 C 86 20 154/104 H 94 03/30/18 08:00 03/30/18 08:38 03/30/18 08:00 03/30/18 08:38 03/30/18 08:00 Laboratory Results 03/28/18 04:56 03/29/18 03/30/18 03/31/18 05:59 05:59 05:59 Intake Total 3220 2240 Output Total 2150 900 Balance 1070 1340 PT 13.9 SEC (12.0-15.0) 03/28/18 04:56 INR 1.05 (0.83-1.16) 03/28/18 04:56 - Physical Exam Constitutional: no apparent distress, appears nourished Eyes: PERRL Ears, Nose, Mouth, Throat: hearing normal Respiratory: no respiratory distress Skin: warm (s) Musculoskeletal: full muscle strength Neurologic: AAOx3 Psychiatric: interacting appropriately ICD10 Worksheet Patient Problems: Problems Problem Status Onset Abdominal pain Acute Acute pancreatitis Acute Alcohol intoxication Acute Alcoholic intoxication without complication Acute Biliary stricture Acute DKA, type 2 Acute Elevated liver enzymes Acute Hypomagnesemia Acute
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
--- NOTE | 2018-03-30 12:13 | ASMTCMCOM ---
CM Note CM Note Notes: CM spoke with RN, patient to discharge independently today. Patient is not interested in alcohol resources. Taking Uber after discharge to airport to catch a flight. Date Signed: 03/30/2018 12:12 PM Electronically Signed By:Cheryle Estrella
--- NOTE | 2018-03-30 12:15 | GDS ---
DISCHARGE DIAGNOSES: 1. Acute on chronic pancreatitis. 2. Common bile duct dilation, with stent placement on a previous admission. 3. Chronic alcohol dependence. 4. Pancreatic pseudocyst. 5. Diabetes type 1 versus 2. 6. Bipolar, and post-traumatic stress disorder. HISTORY OF PRESENT ILLNESS: Briefly, Carl Whiting is a 42-year-old male who has a known history of pancreatic pseudocyst. He has extensive pancreatic inflammation, with an externally compressed b ile duct, and had a common bile duct placed on a previous admission. He has been admitted [facility] 4 times over the summer. He usually does start drinking after he is discharged. He presented to the ER, intoxicated and tearful, and remorseful. He was scheduled to have the common bile duct harjinder christianne with [facility]. He did not go because he was intoxicated. The ER admitted him in hopes that he would have this stent removed during his stay. The stock holder team was concerned terry t he was too intoxicated to remove this stent. At this time, he was discharged today in stable condi tion. I talked to him about making an appointment to get the stent removed. He is aware of this, an d says he will follow up with Gastroenterology. HOSPITAL COURSE: 1. Acute on chronic pancreatitis. His lipase is normal. I suspect that he has an element of chroni c pancreatitis. He has been eating and drinking well for the last 2 days. 2. CBD stent. He needs an ERCP to remove the stent. He will follow up with Gastroenterology in the outpatient setting. 3. Chronic alcohol dependence. He was not having significant withdrawals the last 2 days. I have e ncouraged him, and case management has given him resources to stop drinking. 4. Pancreatic pseudocyst. These have been drained in the past in [place]. Gastroenterology does not want to drain these while he is actively drinking. 5. Diabetes type 1 versus 2. He has been on oral agents. 6. Bipolar disorder, as well as PTSD. This is probably impacting why he drinks. DISCHARGE CONDITION: Stable. Blood pressure is 154/104, heart rate of 86, respiratory rate of 20, O2 saturation on room air 94%, t emperature is 36.8 Celsius. DISCHARGE MEDICATIONS: Please see the EMR. DISCHARGE INSTRUCTIONS: 1. Highly recommending that he abstain from all alcohol. 2. Follow up with Gastroenterology. I gave him the name of Dr. Adler to get the stent removed. 3. If he develops fever, chills, chest pain, shortness of breath, is unable to take in adequate inta ke, to return to the ER. Of note, Jodie is aware of this admission, and will also try contacting him. Copy requested to: Jodie /[id number]/MODL
== END 2018-03-30 10:44 | disposition home or self-care (01) | DRG 439 ==
LOC: EDUNIT# → F3E 20:55 → OBSVTOIN 03-28 14:12
PROVIDERS: ADMIT Internal Medicine; ATTEND Internal Medicine
DX: K85.90 Acute pancreatitis without necrosis or infection, unspecified (principal); K86.3 Pseudocyst of pancreas; K86.1 Other chronic pancreatitis; F10.229 Alcohol dependence with intoxication, unspecified; F31.9 Bipolar disorder, unspecified; E11.9 Type 2 diabetes mellitus without complications; F43.10 Post-traumatic stress disorder, unspecified; Y90.8 Blood alcohol level of 240 mg/100 ml or more; Z79.4 Long term (current) use of insulin; Z97.8 Presence of other specified devices
CPT/HCPCS: G0378; G0480; J1170; J1815; J2060; J2405; J3411